=== PATIENT | female | born 1975 | race Caucasian/White ===

== ENCOUNTER 2020-09-02 09:46 | Emergency (ER) | payer OTHER, SELFPAY ==
--- NOTE | 2020-09-02 | XR_ITS ---
EXAMINATION: XR WRIST, RIGHT CLINICAL INFORMATION: Atraumatic right wrist pain. COMPARISON: None TECHNIQUE: PA, lateral, and oblique views of the right wrist. FINDINGS: The bones and soft tissues are normal. No fracture. Alignment is anatomic with normal joint spaces. No erosions or abnormal soft tissue calcifications. IMPRESSION: Unremarkable right wrist.
[2020-09-02 10:25] VITALS: BP 141/68; PULSE 63; RESP 16; O2SAT 99; BMI 22.8
--- NOTE | 2020-09-02 10:38 | ED.EXTPRO ---
HPI - Extremity Problem General Chief complaint: Extremity Injury, Upper Stated complaint: hand pain,no inj Time Seen by Provider: 09/02/20 10:38 Source: patient Mode of arrival: ambulatory Limitations: no limitations History of Present Illness HPI Narrative: right wist pain x several days. Worsened at nighttime. Pain radiates to right 4th and 5th finger with intermittent numbness/tingling. No injury or trauma. Uses right hand to care for son at home. MD Complaint: extremity pain Onset (ago): day(s) Pain Consistency: constant Location: right Quality: burning and aching Radiation: distal (4th and 5th finger ) Relieving factors: nothing Exacerbating factors: nothing Associated symptoms: denies other symptoms Related Data Previous Rx's Medication Instructions Recorded hydrocodone-acetaminophen 1 tab PO Q8H PRN #10 tab 09/02/20 Allergies Allergy/AdvReac Type Severity Reaction Status Date / Time No Known Allergies Allergy Verified 09/02/20 10:29 Review of Systems Review of Systems: Yes all other systems are reviewed and are negative Constitutional: Constitutional: Denies chills, Denies fever(s) and Denies weakness Eyes: Eyes: Reports no additional eye complaints and Denies change in vision ENT: Reports system reviewed and no additional complaints, except as documented, Denies nasal congestion and Denies nasal discharge Cardiovascular: Cardiovascular: Reports no additional cardiovascular complaints, Denies chest pain, Denies leg edema and Denies dyspnea Respiratory: Respiratory: Reports no additional respiratory complaints, Denies cough and Denies dyspnea Gastrointestinal: Gastrointestinal: Reports no additional gastrointestinal complaints, Denies abdominal pain, Denies fecal incontinence, Denies diarrhea, Denies nausea and Denies vomiting Musculoskeletal: Musculoskeletal: Reports no additional musculoskeletal complaints, Reports arthralgias, Denies joint swelling, Denies muscle weakness, Denies numbness, Reports radiating pain into limb and Reports tingling Integumentary/Breasts: Skin/Breast: Reports system reviewed and no additional complaints, except as docu and Denies rash Neurologic: Denies Abnormal speech present, Denies numbness, Reports tingling and Denies weakness PMFSH Past Medical History Attestation statement: The following information was validated with the patient. Source: obtained from family Medical History Carpal tunnel syndrome Social History Social History Alcohol intake: never Smoking Status: Current every day smoker Use of substances other than those prescribed or required for medical reasons: No Advance Directives: No Advance Directives Information Provided: Yes Physical Exam Vital Signs and I&O and Narrative: Vital Signs and I&O: Vital Signs Pulse 63 09/02/20 10:25 Resp 16 09/02/20 10:25 BP 141/68 H 09/02/20 10:25 Pulse Ox 98 09/02/20 12:15 Intake & Output 09/01/20 09/02/20 09/02/20 18:59 06:59 18:59 Weight 64.41 kg Body Mass Index 22.8 Const: General: cooperative, healthy appearing, comfortable, no acute distress and well developed Orientation/consciousness: patient oriented x3 HENMT: Head: Yes normal to inspection Ears: hearing grossly normal bilaterally General nose exam: Normal external nose present Face and sinus: Yes normal facial exam Mouth: Normal oral and palatal mucosa present Throat: Yes posterior oropharynx normal Eyes: General: appearance normal, both eyes and all related structures Pupils: Equal, round and reactive pupils present Neck: Neck: Yes normal visual inspection Chest: Chest palpation & inspection: normal inspection of the chest Resp: Effort & Inspection: normal respiratory effort Auscultation: clear to auscultation bilaterally Cardio: Palpation: normal PMI Rate: regular rate Rhythm: regular rhythm Peripheral pulses: Peripheral pulses 2+ throughout, radial pulses present and ulnar radial pulses present GI: Inspection: Yes normal to inspection Auscultation: normal bowel sounds Back/Spine/Pelvis: Thoracic/Lumbar Spine: thoracic and lumbar spine normal to inspection Skin: General skin exam: no rashes or lesions noted Neuro: General: patient oriented x3 Cranial nerves: Yes CN's II-XII intact bilaterally and Yes Equal, round and reactive pupils present Cognition (Neuro): normal cognition Speech: No Abnormal speech present Gait exam (Neuro): Normal gait present Motor exam (neuro): 5/5 motor strength present throughout and Motor abnormalities not present Sensory Exam: Normal double simultaneous stimulation for sensation Extrem: General: Yes normal to inspection Right upper extremity: normal to inspection, full ROM (with pain but able ), normal capillary refill and wrist (pain with flexion and extension, +phalens signs. NV intact distally) Details: Tinel's negative; no edema MDM - Extremity (Nontraumatic) MDM Narrative Medical decision making narrative: Exam c/w with carpal tunnel vs tendonitis. Worsened at nighttime with +phalens so more likely carpal tunnel. X-ray negative for bony abnormality. Reviewed worrisome signs/symptoms with patient and when to return to ED. Comfortable with discharge home. Reviewed masspat. Imaging Data wrist x-ray: Attestation: I personally reviewed and interpreted this imaging study as follows: My impression: negative for bony abnormality Radiologist's impression: EXAMINATION: XR WRIST, RIGHT CLINICAL INFORMATION: Atraumatic right wrist pain. COMPARISON: None TECHNIQUE: PA, lateral, and oblique views of the right wrist. FINDINGS: The bones and soft tissues are normal. No fracture. Alignment is anatomic with normal joint spaces. No erosions or abnormal soft tissue calcifications. IMPRESSION: Unremarkable right wrist. Discharge Plan Discharge Clinical Impression: Acute carpal tunnel syndrome of right wrist Patient Disposition: Home, Self-Care Instructions: Arthralgia (ED) Additional Instructions: Carpal tunnel syndrome Wear splint at all times even nighttime Ice, elevation Continue anti-inflammatory medications at home such as ibuprofen or aleve Prescriptions: New hydrocodone-acetaminophen 5-300 mg tablet 1 tab PO Q8H PRN (Reason: acute pain) Qty: 10 RF: 0 Referrals: Lupsi Mantilla MD [Primary Care Provider] - 2 days Gennaro Hines MD [Physician] - 3 days (if no better) Interventions: ED Discharge Assessment Last Done: 09/02/20 12:22 Discharge Date/Time: 09/02/20 12:23
[2020-09-02] MEDS: Ketorolac Tromethamine 60 MG/2 ML VIAL IM (10:55)
[2020-09-02 12:15] VITALS: O2SAT 98
== END 2020-09-02 12:23 | disposition home or self-care (01) ==
PROVIDERS: Emergency Provider Internal Medicine; PCP Internal Medicine
DX: G56.01 Carpal tunnel syndrome, right upper limb (principal); F17.200 Nicotine dependence, unspecified, uncomplicated; Z71.6 Tobacco abuse counseling
CPT/HCPCS: 73110; 96372; 99284; J1885

== ENCOUNTER 2021-12-22 10:23 | Outpatient (REF) | payer OTHER, SELFPAY ==
[2021-12-22 10:56] LABS: Binax Internal Control QC Valid; Binax Now Covid-19 Ag Negative (Negative)
== END 2021-12-22 10:24 | disposition home or self-care (01) ==
LOC: HO.LAB 10:23
PROVIDERS: Visit Provider Internal Medicine
DX: Z20.822 Contact with and (suspected) exposure to COVID-19 (principal)
CPT/HCPCS: C9803

== ENCOUNTER 2022-09-10 08:20 | Emergency (ER) | payer OTHER, SELFPAY ==
--- NOTE | ~2022-09-10 | CT_ITS ---
EXAMINATION: CT ABDOMEN AND PELVIS WITH CONTRAST CLINICAL INFORMATION: Rectal bleeding. Colitis. COMPARISON: None TECHNIQUE: Multidetector volumetric images were obtained from the superior aspect of the liver through the pubic symphysis following administration 85 mL of Omnipaque 350 intravenous contrast. Sagittal and coronal reformatted images were obtained on the technologist's workstation. Oral contrast: No This CT examination was performed using dose optimization techniques as appropriate, variously including the following: *Automated exposure control *Adjustment of mA and/or kV according to patient size (this includes techniques or standardized protocols for targeted exams where dose is matched to indication/reason for exam; i.e. extremities or head) *Use of iterative reconstruction technique DLP: 408 mGy-cm FINDINGS: LUNG BASES: The visualized lung bases are unremarkable. LIVER, GALLBLADDER, AND BILIARY TREE: The liver is normal in size, shape, and attenuation. No focal hepatic lesion or biliary ductal dilatation is present. The gallbladder is unremarkable with no evidence of radiopaque gallstones, gallbladder wall thickening, or obvious pericholecystic inflammatory changes. PANCREAS: Unremarkable. SPLEEN: Unremarkable. ADRENAL GLANDS: Unremarkable. KIDNEYS AND URETERS: The kidneys are normal in size, shape, and attenuation. No hydronephrosis, hydroureter, or calculi seen. No perinephric stranding. BLADDER: Unremarkable. GASTROINTESTINAL TRACT: Large stool burden throughout the colon without evidence of bowel obstruction or right or left lower quadrant inflammatory change. Polyps or masses could be missed. There does appear to be slight thickening of the ascending colon. Colitis here not excluded. Follow-up study with bowel prep, oral contrast or rectal contrast would be helpful. The sigmoid is unremarkable but somewhat decompressed. The rectum is decompressed as well. I do not see evidence of pericolonic inflammation. No free air. ABDOMINAL WALL: No significant hernia is appreciated. LYMPH NODES: Normal. VASCULAR: Unremarkable. PELVIC VISCERA: Unremarkable. OSSEOUS STRUCTURES: Degenerative change T11-T12 noted. CT/CT abdomen pelvis w IV con IMPRESSION: Stool-filled colon with areas of bowel wall thickening in the ascending colon noted. Fleischner guidelines were followed.
[2022-09-10 08:24] VITALS: BP 138/96; PULSE 75; RESP 18; TEMP 36.4; O2SAT 98
[2022-09-10 08:35] VITALS: BP 131/75; PULSE 63; RESP 18; TEMP 36.8; O2SAT 97; BMI 22.6
[2022-09-10 09:38] LABS: MANUAL DIFF FLAG NO
[2022-09-10 09:44] LABS: Basophils Absolute Auto 0.1 X10*3/uL (0.0-0.2); Basophils Percent Auto 1.1 % (0-2); Eosinophils Absolute Auto 0.1 X10*3/uL (0.0-0.4); Eosinophils Percent Auto 2.1 % (0-4); Hematocrit 36.6 % (37.0-47.0); Hemoglobin 12.4 g/dl (12.0-16.0); Imm Gran Abs Auto 0.01 X10*3/uL (0.00-0.03); Imm Gran Pct Auto 0.2 % (0.0-0.4); Lymphocytes Absolute Auto 1.7 X10*3/uL (1.2-4.9); Lymphocytes Percent Auto 32.9 % (20-40); Mean Corpuscular HGB Conc 33.9 g/dl (31.0-35.0); Mean Corpuscular Hemoglobin 31.5 pg (27.0-33.0); Mean Corpuscular Volume 92.9 fL (80.0-98.0); Mean Platelet Volume 9.1 fL (9.4-12.3); Monocytes Absolute Auto 0.4 X10*3/uL (0.1-1.2); Monocytes Percent Auto 7.4 % (2-11); Neutrophils Percent Auto 56.3 % (45-73); Platelet Count 207 X10*3/uL (160-400); Red Blood Count 3.94 X10*6/uL (4.20-5.50); Red Cell Distribution Width 13.6 % (11.0-16.0); White Blood Count 5.3 X10*3/uL (4.8-10.8)
--- NOTE | 2022-09-10 09:47 | ED_ITS ---
HPI - General Adult General Chief complaint: General Medical Stated complaint: blood in stool Time Seen by Provider: 09/10/22 08:30 Source: patient Mode of arrival: ambulatory Limitations: no limitations History of Present Illness HPI narrative: Patient presents emergency department for evaluation bloody stool. She states that this is been ongoing for many years. States that over the past year and has occurred about every 3 months, typically happening when she has bouts of constipation. However, she states she has had increased frequency over the past 8 days. With every bowel movement she is noting bright red blood with clots to this stool and within the toilet bowl. she states that the first 3 days of this bout she had dark tarry stools has not had any since then. She does endorse a history of hemorrhoids, that she is manually reinserting into her rectum. Denies any prior evaluation in the past in regards to this. Denies fevers, chills, night sweats, recent unintentional weight loss, chest pain, shortness of breath, difficulty breathing, nausea, vomiting, abdominal pain, hematuria, fami ly history of colon cancer, no prior colonoscopy. Related Data Previous Rx's Medication Instructions Recorded hydrocodone 5 mg-acetaminophen 300 1 tab PO Q8H PRN acute pain #10 09/02/20 mg tablet tabs ciprofloxacin HCl 500 mg tablet 500 mg PO Q12H 7 days #14 tabs 09/10/22 metronidazole 500 mg tablet 500 mg PO Q8H 7 days #21 tabs 09/10/22 Allergies Allergy/AdvReac Type Severity Reaction Status Date / Time No Known Allergies Allergy Verified 09/02/20 10:29 Review of Systems Review of Systems: Constitutional : No Weight loss, No Fever, No Chills ENT/Mouth :? No sore throat, No Rhinorrhea Eyes: No Swelling, No Redness Cardiovascular : No Chest Pain, No SOB, No Edema Respiratory : No Cough, No Sputum, No Wheezing Gastrointestinal : no Nausea, no Vomiting, no Diarrhea, no abdominal pain, Positive Hematochezia, No Melena Genitourinary : No Dysuria, No Urinary Frequency, No Hematuria, No Urgency? Musculoskeletal : No joint pain, No Myalgias, No Joint Swelling Skin : No Skin Lesions, No rash Neuro : No Weakness, No Numbness, No Dizziness, No Headache Psych : No Anxiety/Panic, No Depression Heme/Lymph: No Bruising, No Lymphadenopathy Endocrine : No Polyuria, No Polydipsia Yes all other systems are reviewed and are negative [facility] Past Medical History Attestation statement: The following information was validated with the patient. Source: old records reviewed Medical History Carpal tunnel syndrome Social History Social History Alcohol intake: never Advance Directives: No Advance Directives Information Provided: No Physical Exam ED Vital Signs: Vital Signs - 24 hr 09/10/22 08:24 09/10/22 08:35 09/10/22 10:27 Temperature 97.5 F 98.3 F 98.3 F Pulse Rate 75 63 49 L Respiratory Rate 18 18 14 Blood Pressure 138/96 H 131/75 144/78 H Pulse Oximetry 98 97 98 Oxygen Delivery Method Room Air Room Air Room Air BMI result Body Mass Index 22.6 Vital signs have been reviewed as normal and appeared to be correct. Blood pressure normal.? Heart rate normal.? Respiration rate normal. Temperature n ormal.? Oxygen saturation normal. Appearance: Alert.?Oriented to person, place and time. No acute distress.?Normal affect. Eyes: Pupils equal, round and reactive to light.? ENT: Pharynx normal.?? Neck: Normal inspection.? Neck supple.?? CVS: Heart sounds normal. Normal heart rate and rhythm.? Pulses normal.?? Respiratory: No respiratory distress.? Lung sounds clear to auscultation bilaterally?? Abdomen: Soft and non-tender. Normoactive bowel sounds. rectal: performed with service line layer, ED RN Kaylee, no evidence of external hemorrhoids upon examination, no active rectal bleeding, no fissures. Upon dig ital rectal examination no palpable mass, noted small amounts of maroon-colored stool? Skin: Skin warm and dry.? Normal skin color.? Extremities: No lower extremity edema.? ? Neuro: Moves all extremities spontaneously. Sensation intact bilaterally. No focal neuro deficits. Ambulates with normal steady gait. Course Course Course Narrative: patient is a 47-year-old female with no significant past medical history presenting to emergency department for evaluation of bright red blood per rectum occurring only with bowel movements and straining with constipation. She is overall well-appearing. Vital signs are stable. No tachycardia, afebrile. No additional constitutional symptoms. Rectal examination is overall unremarkable, no visualized external hemorrhoids or fissures. Will obtain CBC, CMP, CT of the abdomen and pelvis, possible etiologies for hematochezia including internal hemorrhoid which seems most likely given her history, colitis, diverticulitis. disposition pending results Reevaluation(s) Reevaluation #1: CBC reveals no Leukocytosis, hemoglobin 12.4 hematocrit 36.6, platelets normal. CMP is unremarkable. CT reveals stool-filled colon with areas of bowel wall thickening in the ascending colon, DVT cyst with colitis. I discussed these findings with patient. Advised outpatient follow-up with Gastroenterology, will trial a 1 week course of antibiotics; metronidazole and ciprofloxacin. Reviewed worrisome signs symptoms to return back to emergency department for. Discussed bland diet with slow progression as symptoms improve. Patient verbalizes understanding, was discharged home in stable condition. Medical Decision Making Medical Records Medical records reviewed: Yes I reviewed the patient's medical records. Lab Data Lab results reviewed: Yes I reviewed the patient's lab results. Result diagrams: 09/10/22 09:32 09/10/22 09:32 Labs: Lab Results 09/10/22 09/10/22 09/10/22 Range/Units 09:32 09:32 11:03 WBC 5.3 (4.8-10.8) X10*3/uL RBC 3.94 L (4.20-5.50) X10*6/uL Hgb 12.4 (12.0-16.0) g/dl Hct 36.6 L (37.0-47.0) % MCV 92.9 (80.0-98.0) fL MCH 31.5 (27.0-33.0) pg MCHC 33.9 (31.0-35.0) g/dl RDW 13.6 (11.0-16.0) % Plt Count 207 (160-400) X10*3/uL MPV 9.1 L (9.4-12.3) fL Immature Gran % (Auto) 0.2 (0.0-0.4) % Neut % (Auto) 56.3 (45-73) % Lymph % (Auto) 32.9 (20-40) % [place] % (Auto) 7.4 (2-11) % Eos % (Auto) 2.1 (0-4) % Baso % (Auto) 1.1 (0-2) % Lymph # (Auto) 1.7 (1.2-4.9) X10*3/uL [place] # (Auto) 0.4 (0.1-1.2) X10*3/uL Eos # (Auto) 0.1 (0.0-0.4) X10*3/uL Baso # (Auto) 0.1 (0.0-0.2) X10*3/uL Abs Immat Gran (auto) 0.01 (0.00-0.03) X10*3/uL Absolute Neuts (auto) 3.0 (2.0-8.3) x10*3/uL Absolute Nucleated RBC 0.000 (0.0-0.012) X10*3/uL Nucleated RBC % (auto) 0.0 (0.0-0.2) /100WBC Sodium 142 (135-145) mmol/L Potassium 4.0 (3.3-5.1) mmol/L Chloride 106 (96-108) mmol/L Carbon Dioxide 27 (22-29) mmol/L Anion Gap 13 (12-20) BUN 10 (9-16) mg/dL Creatinine 0.72 (0.5-1.4) mg/dL Estim Creat Clear Calc 91.4 Estimated GFR > 60 Random Glucose 63 (60-115) mg/dL Calcium 9.3 (8.4-10.2) mg/dL Total Bilirubin < 0.2 (0.0-1.0) mg/dL AST 13 (5-31) U/L ALT 10 (0-31) U/L Alkaline Phosphatase 49 (39-117) U/L Total Protein 6.8 (6.5-8.0) g/dL Albumin 4.4 (3.5-5.0) g/dL Urine Color Yellow Urine Appearance Clear Urine pH 7.5 (5.0-9.0) Ur Specific [place] 1.010 (1.005-1.025) Urine Protein Negative (Neg-Trace) mg/dL Urine Glucose (UA) Negative (Negative) mg/dL Urine Ketones Negative (Negative) mg/dL Urine Blood Negative (Negative) Urine Nitrite Negative (Negative) Ur Leukocyte Esterase Negative (Negative) Urine Test (NEGATIVE) Stool Occult Blood (NEGATIVE) 09/10/22 09/10/22 Range/Units 11:03 11:03 WBC (4.8-10.8) X10*3/uL RBC (4.20-5.50) X10*6/uL Hgb (12.0-16.0) g/dl Hct (37.0-47.0) % MCV (80.0-98.0) fL MCH (27.0-33.0) pg MCHC (31.0-35.0) g/dl RDW (11.0-16.0) % Plt Count (160-400) X10*3/uL MPV (9.4-12.3) fL Immature Gran % (Auto) (0.0-0.4) % Neut % (Auto) (45-73) % Lymph % (Auto) (20-40) % [place] % (Auto) (2-11) % Eos % (Auto) (0-4) % Baso % (Auto) (0-2) % Lymph # (Auto) (1.2-4.9) X10*3/uL [place] # (Auto) (0.1-1.2) X10*3/uL Eos # (Auto) (0.0-0.4) X10*3/uL Baso # (Auto) (0.0-0.2) X10*3/uL Abs Immat Gran (auto) (0.00-0.03) X10*3/uL Absolute Neuts (auto) (2.0-8.3) x10*3/uL Absolute Nucleated RBC (0.0-0.012) X10*3/uL Nucleated RBC % (auto) (0.0-0.2) /100WBC Sodium (135-145) mmol/L Potassium (3.3-5.1) mmol/L Chloride (96-108) mmol/L Carbon Dioxide (22-29) mmol/L Anion Gap (12-20) BUN (9-16) mg/dL Creatinine (0.5-1.4) mg/dL Estim Creat Clear Calc Estimated GFR Random Glucose (60-115) mg/dL Calcium (8.4-10.2) mg/dL Total Bilirubin (0.0-1.0) mg/dL AST (5-31) U/L ALT (0-31) U/L Alkaline Phosphatase (39-117) U/L Total Protein (6.5-8.0) g/dL Albumin (3.5-5.0) g/dL Urine Color Urine Appearance Urine pH (5.0-9.0) Ur Specific [place] (1.005-1.025) Urine Protein (Neg-Trace) mg/dL Urine Glucose (UA) (Negative) mg/dL Urine Ketones (Negative) mg/dL Urine Blood (Negative) Urine Nitrite (Negative) Ur Leukocyte Esterase (Negative) Urine Test NEGATIVE (NEGATIVE) Stool Occult Blood POSITIVE (NEGATIVE) Imaging Data CT scan - abdomen: Radiologist's impression: CT/CT abdomen pelvis w IV con IMPRESSION: Stool-filled colon with areas of bowel wall thickening in the ascending colon noted.? ? Fleischner guidelines were followed. Discharge Plan Discharge Clinical Impression: Hematochezia, Colitis Patient Disposition: Home, Self-Care Instructions: Rectal Bleeding (ED), Colitis (ED) Additional Instructions: CT scan shows areas of bowel wall thickening which can occur with colitis, inflammation of the bowel. Introduce a bland diet including crackers, bananas, rice, soup, toast, and boiled vegetables. This may progress to plain baked or boiled chicken or turkey. Avoid dairy products or foods high in fat or grease. You have been given prescriptions for oral antibiotics, metronidazole to take 3 times daily, and ciprofloxacin to take twice daily for 1 week. You should contact the GI office to arrange for follow-up. Their phone number has been provided to you. Follow-up with your primary care provider within 3 days. Return to the emergency department with any new or worsening symptoms or concerns. Prescriptions: New metronidazole 500 mg tablet 500 mg PO Q8H 7 Days Qty: 21 0RF ciprofloxacin HCl 500 mg tablet 500 mg PO Q12H 7 Days Qty: 14 0RF No Action hydrocodone-acetaminophen 5-300 mg tablet 1 tab PO Q8H PRN (Reason: acute pain) Qty: 10 0RF Referrals: Tierney Nation MD [Physician] - Interventions: ED Discharge Assessment Last Done: 09/10/22 14:09 Discharge Date/Time: 09/10/22 14:09
[2022-09-10 10:09] LABS: Alanine Aminotransferase 10 U/L (0-31); Albumin Level 4.4 g/dL (3.5-5.0); Alkaline Phosphatase 49 U/L (39-117); Anion Gap 13 (12-20); Aspartate Amino Transferase 13 U/L (5-31); Bilirubin Total < 0.2 mg/dL (0.0-1.0); Blood Urea Nitrogen 10 mg/dL (9-16); Calcium 9.3 mg/dL (8.4-10.2); Carbon Dioxide 27 mmol/L (22-29); Chloride 106 mmol/L (96-108); Creatinine Clr Calc Pharmacy 91.4; Estimated Glomerular Filt Rate > 60; Glucose Random 63 mg/dL (60-115); Sodium 142 mmol/L (135-145); Total Protein 6.8 g/dL (6.5-8.0)
[2022-09-10 10:27] VITALS: BP 144/78; PULSE 49; RESP 14; TEMP 36.8; O2SAT 98
[2022-09-10 11:14] LABS: Appearance Urine Clear; Color Urine Yellow; Glucose Urine UA Negative (Negative); Leukocyte Esterase Urine Negative (Negative); Nitrite Urine Negative (Negative); PH 7.5 (5.0-9.0); UPreg QC Valid YES; Urine Blood Negative (Negative); Urine Ketones Negative (Negative); Urine Protein Negative (Neg-Trace)
[2022-09-10 11:15] LABS: Urine Pregnancy NEGATIVE (NEGATIVE)
[2022-09-10] MEDS: iohexoL 350 MG/ML 100 ML INFUS..BTL 85 ML IV (12:22)
[2022-09-10 12:44] LABS: OBS Int Ctl Valid YES; OBS1 POSITIVE (NEGATIVE)
== END 2022-09-10 14:09 | disposition home or self-care (01) ==
PROVIDERS: Nurse Practitioner Family; Emergency Provider Student in an Organized Health Care Education/Training Program
DX: K92.1 Melena (principal); K52.9 Noninfective gastroenteritis and colitis, unspecified
CPT/HCPCS: 36415; 74177; 80053; 81003; 81025; 82272; 85025; 99283; 99284; Q9967

== ENCOUNTER 2023-09-14 09:32 | Emergency (ER) | payer OTHER, SELFPAY ==
--- NOTE | ~2023-09-14 | CT_ITS ---
CT SOFT TISSUE NECK WITH CONTRAST CLINICAL INFORMATION: Draining surgical site, evaluate for deep abscess. COMPARISON: None available. TECHNIQUE: Following the intravenous administration of 100 mL of Omnipaque 350 intravenous contrast, helical imaging was performed in the axial plane with generation of coronal and sagittal reformatted images. This CT examination was performed using dose optimization techniques as appropriate, variously including the following: *Automated exposure control *Adjustment of mA and/or kV according to patient size (this includes techniques or standardized protocols for targeted exams where dose is matched to indication/reason for exam; i.e. extremities or head) *Use of iterative reconstruction technique FINDINGS: There are postoperative changes within the right submandibular region and the right subarticular gland has been resected or biopsied and is difficult to determine given soft tissue density in the right submandibular region which may reflect postoperative hematoma or phlegmon. Small gas fluid collection extending from the right submandibular space to the overlying skin surface. Abscess not excluded. There is no infection within the deep cervical soft tissues. Orbital soft tissues, parotid glands, and the left submandibular gland are unremarkable. The thyroid gland is enlarged and diffusely heterogeneous which should be correlated with thyroid function tests and ultrasound. No retropharyngeal collections. Lingual tonsillar hypertrophy partially effaces the vallecula bilaterally. Laryngeal structures are limitedly assessed, closely opposed in phonation. Punctate focus of gas within Eden's duct on the right side. Imaged lungs are clear. Imaged upper mediastinum is unremarkable. There is multilevel cervical spondylosis. The paranasal sinuses are clear. Moderate bilateral mastoid effusions. CT/CT soft tissue neck w IV con IMPRESSION: - There are postoperative changes within the right submandibular region and the right subarticular gland has been resected or biopsied which is difficult to determine given soft tissue density in the right submandibular region which may reflect postoperative hematoma or phlegmon. Small gas fluid collection extending from the right submandibular space to the overlying skin surface. Abscess not excluded. There is no infection within the deep cervical soft tissues. - The thyroid gland is enlarged and diffusely heterogeneous which should be correlated with thyroid function tests and ultrasound.
[2023-09-14 09:43] VITALS: BP 162/89; PULSE 75; RESP 16; TEMP 36.7; O2SAT 98; BMI 23.5
[2023-09-14 10:02] LABS: MANUAL DIFF FLAG NO
[2023-09-14 10:09] LABS: Basophils Percent Auto 0.7 % (0-2); Eosinophils Absolute Auto 0.1 X10*3/uL (0.0-0.4); Eosinophils Percent Auto 1.5 % (0-4); Hematocrit 36.5 % (37.0-47.0); Hemoglobin 12.2 g/dl (12.0-16.0); Imm Gran Abs Auto 0.02 X10*3/uL (0.00-0.03); Imm Gran Pct Auto 0.3 % (0.0-0.4); Lymphocytes Absolute Auto 1.6 X10*3/uL (1.2-4.9); Lymphocytes Percent Auto 27.5 % (20-40); Mean Corpuscular HGB Conc 33.4 g/dl (31.0-35.0); Mean Corpuscular Hemoglobin 31.8 pg (27.0-33.0); Mean Corpuscular Volume 95.1 fL (80.0-98.0); Mean Platelet Volume 8.8 fL (9.4-12.3); Monocytes Absolute Auto 0.5 X10*3/uL (0.1-1.2); Monocytes Percent Auto 8.1 % (2-11); Neutrophils Absolute Auto 3.7 x10*3/uL (2.0-8.3); Neutrophils Percent Auto 61.9 % (45-73); Platelet Count 234 X10*3/uL (160-400); Red Blood Count 3.84 X10*6/uL (4.20-5.50); Red Cell Distribution Width 13.2 % (11.0-16.0)
[2023-09-14 10:20] LABS: Alanine Aminotransferase 11 U/L (0-31); Albumin Level 4.2 g/dL (3.5-5.0); Alkaline Phosphatase 55 U/L (39-117); Anion Gap 14 (12-20); Aspartate Amino Transferase 14 U/L (5-31); Bilirubin Total 0.3 mg/dL (0.0-1.0); Blood Urea Nitrogen 10 mg/dL (9-16); Calcium 9.2 mg/dL (8.4-10.2); Carbon Dioxide 23 mmol/L (22-29); Chloride 108 mmol/L (96-108); Creatinine Clr Calc Pharmacy 85.6; Estimated Glomerular Filt Rate > 60; Glucose Random 116 mg/dL (60-115); Sodium 141 mmol/L (135-145); Total Protein 7.2 g/dL (6.5-8.0)
--- NOTE | 2023-09-14 10:25 | ED_ITS ---
HPI - General Adult General Chief complaint: Wound/Laceration Stated complaint: Surgery wound opened and leaking Time Seen by Provider: 09/14/23 09:59 Source: patient Mode of arrival: ambulatory Limitations: no limitations History of Present Illness HPI narrative: 48 y/o female with recent salivary gland removal at [facility] almost 2 weeks ago who presents to the ER for evaluation of her surgical wound opening up with drainage of pus that happened this morning. She states she saw them for a post-op visit on 09/10, had the steri strips removed. She states she had a lot of swelling and pain and was told it was normal. She reports the swelling is overall improved but today she felt a pop and her wound opened up with purulent drainage coming from it. No fevers. She has not been on any antibiotics since the surgery. She denies any sensation of throat swelling, difficultly swallowing or speaking. No oral swelling just some pain on the right side of her tongue. She called her ENT office this morning but has not heard back yet. MD complaint: opened surgical wound w/ pus Onset (ago): hour(s) Location: neck Radiation: proximal and distal Severity: moderate Quality: aching Pain Consistency: constant Relieving factors: rest Exacerbating factors: movement Associated symptoms: denies other symptoms Treatments prior to arrival: none Related Data Previous Rx's Medication Instructions Recorded hydrocodone 5 mg-acetaminophen 300 1 tab PO Q8H PRN acute pain #10 09/02/20 mg tablet tabs ciprofloxacin HCl 500 mg tablet 500 mg PO Q12H 7 days #14 tabs 09/10/22 metronidazole 500 mg tablet 500 mg PO Q8H 7 days #21 tabs 09/10/22 cephalexin 500 mg capsule 500 mg PO Q6H 10 days #40 caps 09/14/23 doxycycline hyclate 100 mg tablet 100 mg PO BID #20 tabs 09/14/23 ibuprofen 600 mg tablet 600 mg PO Q8H PRN pain #20 tabs 09/14/23 lidocaine HCl 4 % (40 mg/mL) 15 ml mucous membrane TID PRN pain 09/14/23 mucosal solution #50 mL Allergies Allergy/AdvReac Type Severity Reaction Status Date / Time No Known Allergies Allergy Verified 09/02/20 10:29 Review of Systems 2 Review of Systems: Yes all other systems are reviewed and are negative PMFSH Past Medical History Medical History Carpal tunnel syndrome Social History Social History Alcohol intake: never Advance Directives: No Advance Directives Information Provided: No Physical Exam ED Vital Signs: Vital Signs - 24 hr 09/14/23 09:43 Temperature 98.1 F Pulse Rate 75 Respiratory Rate 16 Blood Pressure 162/89 H Pulse Oximetry 98 Oxygen Delivery Method Room Air BMI result Body Mass Index 23.5 Appearance: Alert. Oriented X3. No acute distress. Nontoxic appearing Head: normocephalic, atraumatic. Eyes: Pupils equal, round and reactive to light. ENT: Pharynx normal. No tonsillar swelling or exudate. Tongue with small erythematous tender lesions on the right lateral aspect. airway patent. normal voice. Neck: right submandibular area with an open 0.5cm area w/ yellow purulent drainage, mild erythema and induration extending to the ear and a few cm centrally. no midline neck swelling. normal ROM of the neck. CVS: Normal heart rate and rhythm. Pulses normal. Respiratory: No respiratory distress. Breath sounds normal. Skin: Skin warm and dry. Normal skin color. Normal skin turgor. No rashes. Extremities: No lower extremity edema. No joint swelling. Neuro/psych: Oriented X 3. No motor deficit. No sensory deficit. CN II-XII intact. Normal speech and cognition. Medications Administered Discontinued Medications Generic Name Dose Route Start Last Admin Trade Name Freq PRN Reason Stop Dose Admin Iohexol 100 ml 09/14/23 10:43 09/14/23 10:43 Iohexol 350 Mg/Ml 100 Ml Infus..Btl IV 09/14/23 10:44 60 ml ONCE ONE Administration Ketorolac Tromethamine 30 mg 09/14/23 10:46 09/14/23 10:48 Ketorolac Tromethamine 30 Mg/Ml Vial IVPUSH 09/14/23 10:47 30 mg ONCE ONE Administration Medical Decision Making Medical Decision Making [facility] Narrative: 48 yo female presenting 2 weeks post op with wound dehiscence and drainage of purulent material. concern for abscess. she has normal ROM and is nontoxic appearing. Labs show no leukocytosis. CT scan showing possible abscess w/ some superficial air, likely due to the fact that the wound is now open, less likely a necrotizing infection. CT scan reviewed w/ Dr. Euceda Comfortable w/ discharge home with doxycycline and keflex She will f/u with her ENT provider BREEZY Return precautions discussed. stable for d/c Differential Diagnosis Differential Diagnoses: The differential diagnosis associated with the presentation includes post-op abscess, cellulitis, phlegmon, deep tissue infection, no evidence of sepsis Lab Data MDM Lab Attestation statement: I reviewed the patient's lab results. no leukocytosis 09/14/23 09:59 09/14/23 09:59 Labs: Lab Results 09/14/23 Range/Units 09:59 WBC 6.0 (4.8-10.8) X10*3/uL RBC 3.84 L (4.20-5.50) X10*6/uL Hgb 12.2 (12.0-16.0) g/dl Hct 36.5 L (37.0-47.0) % MCV 95.1 (80.0-98.0) fL MCH 31.8 (27.0-33.0) pg MCHC 33.4 (31.0-35.0) g/dl RDW 13.2 (11.0-16.0) % Plt Count 234 (160-400) X10*3/uL MPV 8.8 L (9.4-12.3) fL Immature Gran % (Auto) 0.3 (0.0-0.4) % Neut % (Auto) 61.9 (45-73) % Lymph % (Auto) 27.5 (20-40) % [place] % (Auto) 8.1 (2-11) % Eos % (Auto) 1.5 (0-4) % Baso % (Auto) 0.7 (0-2) % Lymph # (Auto) 1.6 (1.2-4.9) X10*3/uL [place] # (Auto) 0.5 (0.1-1.2) X10*3/uL Eos # (Auto) 0.1 (0.0-0.4) X10*3/uL Baso # (Auto) 0.0 (0.0-0.2) X10*3/uL Abs Immat Gran (auto) 0.02 (0.00-0.03) X10*3/uL Absolute Neuts (auto) 3.7 (2.0-8.3) x10*3/uL Absolute Nucleated RBC 0.000 (0.0-0.012) X10*3/uL Nucleated RBC % (auto) 0.0 (0.0-0.2) /100WBC Sodium 141 (135-145) mmol/L Potassium 4.0 (3.3-5.1) mmol/L Chloride 108 (96-108) mmol/L Carbon Dioxide 23 (22-29) mmol/L Anion Gap 14 (12-20) BUN 10 (9-16) mg/dL Creatinine 0.76 (0.5-1.4) mg/dL Estim Creat Clear Calc 85.6 Estimated GFR > 60 Random Glucose 116 H (60-115) mg/dL Calcium 9.2 (8.4-10.2) mg/dL Total Bilirubin 0.3 (0.0-1.0) mg/dL AST 14 (5-31) U/L ALT 11 (0-31) U/L Alkaline Phosphatase 55 (39-117) U/L Total Protein 7.2 (6.5-8.0) g/dL Albumin 4.2 (3.5-5.0) g/dL Independent Interpretation I performed an independent interpretation of an: CT Scan Interpretation: no large well defined fluid collection, agree w/ radiology read Radiology Impression Discussion of test interpretation with radiology: I have reviewed the radiologist's reading. Radiologist Impression: CT/CT soft tissue neck w IV con IMPRESSION: - There are postoperative changes within the right submandibular region and the right subarticular gland has been resected or biopsied which is difficult to determine given soft tissue density in the right submandibular region which may reflect postoperative hematoma or phlegmon. Small gas fluid collection extending from the right submandibular space to the overlying skin surface. Abscess not excluded. There is no infection within the deep cervical soft tissues. - The thyroid gland is enlarged and diffusely heterogeneous which should be correlated with thyroid function tests and ultrasound. Prescription Management I considered prescription management with: Pain Medication and Antibiotic Critical Care Time Critical Care Time Critical Care Time: No Discharge Plan Discharge Clinical Impression: Abscess of neck Patient Disposition: Home, Self-Care Instructions: Abscess (ED) Additional Instructions: Your labs were reassuring. Take the prescribed antibiotics as directed, complete the entire course and do not miss any doses Use warm compresses to the area several times per day Follow up with ENT as soon as possible CT/CT soft tissue neck w IV con IMPRESSION: - There are postoperative changes within the right submandibular region and the right subarticular gland has been resected or biopsied which is difficult to determine given soft tissue density in the right submandibular region which may reflect postoperative hematoma or phlegmon. Small gas fluid collection extending from the right submandibular space to the overlying skin surface. Abscess not excluded. There is no infection within the deep cervical soft tissues. - The thyroid gland is enlarged and diffusely heterogeneous which should be correlated with thyroid function tests and ultrasound. Prescriptions: New doxycycline hyclate 100 mg tablet 100 mg PO BID Qty: 20 0RF cephalexin 500 mg capsule 500 mg PO Q6H 10 Days Qty: 40 0RF ibuprofen 600 mg tablet 600 mg PO Q8H PRN (Reason: pain) Qty: 20 0RF lidocaine HCl 4 % (40 mg/mL) solution 15 ml mucous membrane TID PRN (Reason: pain) Qty: 50 0RF No Action hydrocodone-acetaminophen 5-300 mg tablet 1 tab PO Q8H PRN (Reason: acute pain) Qty: 10 0RF metronidazole 500 mg tablet 500 mg PO Q8H 7 Days Qty: 21 0RF ciprofloxacin HCl 500 mg tablet 500 mg PO Q12H 7 Days Qty: 14 0RF Interventions: ED Discharge Assessment Last Done: 09/14/23 12:22 Discharge Date/Time: 09/14/23 12:24
[2023-09-14] MEDS: iohexoL 350 MG/ML 100 ML INFUS..BTL IV (10:43)
[2023-09-14] MEDS: Ketorolac Tromethamine 30 MG/ML VIAL IVPUSH (10:48)
== END 2023-09-14 12:24 | disposition home or self-care (01) ==
PROVIDERS: Emergency Provider Emergency Medicine Emergency Medical Services; PCP Internal Medicine
DX: L02.11 Cutaneous abscess of neck (principal)
CPT/HCPCS: 36415; 70491; 80053; 85025; 96374; 99283; 99284; J1885; Q9967

== ENCOUNTER 2025-04-04 13:17 | Emergency (ER) | payer OTHER, SELFPAY ==
--- NOTE | ~2025-04-04 | CT_ITS ---
CLINICAL HISTORY: back pain, rectal bleeding CT abdomen and pelvis with IV contrast. COMPARISON: CT abdomen and pelvis dated 09/10/22 at 12:05 EDT FINDINGS: Partially visualized lung bases are unremarkable. No focal hepatic lesion. Normal gallbladder. Normal spleen. Normal pancreas. Normal adrenal glands. Symmetric renal enhancement. No hydronephrosis. Normal appendix. Mild colonic stool burden. No bowel obstruction. No focus of active hemorrhage identified within the bowel. Mild thickening of the mucosa of the distal sigmoid colon/rectum. No mesenteric or retroperitoneal lymphadenopathy. Normal abdominal aorta. Urinary bladder is contracted. No adnexal mass. Prominence of the periuterine vessels on the left measuring up to 8 mm. Mild lower thoracic spondylosis. No acute fracture or suspicious bone lesion. IMPRESSION: 1. Mild thickening of the mucosa of the distal sigmoid colon/rectum can be associated with proctitis. No focus of active hemorrhage identified within the bowel. 2. Multiple prominent periovarian vessels on the left can be associated with pelvic congestion syndrome. This document has been electronically signed by: Nnamdi Avitia MD on 04/04/2025 19:57:38
[2025-04-04 13:30] VITALS: BP 144/84; PULSE 73; RESP 18; TEMP 36.6; O2SAT 98; BMI 23.0
--- NOTE | 2025-04-04 13:30 | ED_ITS ---
HPI - General Adult General Chief complaint: General Medical Stated complaint: Low Back Pain Blood In Urine Time Seen by Provider: 04/04/25 18:08 Source: patient, RN notes reviewed and old records reviewed Mode of arrival: ambulatory Limitations: no limitations History of Present Illness ED Provider: Kelsey TAM narrative: 49-year-old female presents for evaluation of back pain for the last few days. She reports that she just recently went back to work. 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 The patient also reports bright red rectal bleeding for the last 8 days. She reports that she feels constipated and is straining to go to the bathroom. She had a colonoscopy and hemorrhoidectomy about 2 years ago. she denies any abdominal pain. She is not anticoagulated Related Data Previous Rx's ?Medication ?Instructions ?Recorded hydrocodone 5 mg-acetaminophen 300 1 tab PO Q8H PRN acute pain #10 09/02/20 mg tablet tabs ciprofloxacin HCl 500 mg tablet 500 mg PO Q12H 7 days #14 tabs 09/10/22 metronidazole 500 mg tablet 500 mg PO Q8H 7 days #21 tabs 09/10/22 cephalexin 500 mg capsule 500 mg PO Q6H 10 days #40 caps 09/14/23 doxycycline hyclate 100 mg tablet 100 mg PO BID #20 tabs 09/14/23 ibuprofen 600 mg tablet 600 mg PO Q8H PRN pain #20 tabs 09/14/23 lidocaine HCl 4 % (40 mg/mL) 15 ml mucous membrane TID PRN pain 09/14/23 mucosal solution #50 mL cyclobenzaprine 10 mg tablet 10 mg PO TID PRN muscle spasm #20 04/04/25 tabs hydrocortisone acetate 25 mg 25 mg SC DAILY 5 days #12 ea 04/04/25 rectal suppository (Anusol-HC) polyethylene glycol 3350 17 gram 17 g PO DAILY PRN constipation #30 04/04/25 oral powder packet (Miralax) ea Allergies Allergy/AdvReac Type Severity Reaction Status Date / Time No Known Allergies Allergy Verified 04/04/25 13:34 Review of Systems 2 Constitutional: Constitutional: Denies body ache(s), Denies chills and Denies fever(s) Eyes: Eyes: Denies blurry vision ENT: Denies vertigo and Denies dizziness Cardiovascular: Cardiovascular: Denies chest pain and Denies dyspnea Respiratory: Respiratory: Denies cough and Denies dyspnea Gastrointestinal: Gastrointestinal: Denies abdominal pain, Reports hematochezia, Denies nausea and Denies vomiting Musculoskeletal: Musculoskeletal: Reports back pain Integumentary/Breasts: Skin/Breast: Denies rash Neurologic: Denies vertigo and Denies dizziness Psychiatric: Psychiatric: Denies anxiety PMFSH Past Medical History Medical History Carpal tunnel syndrome Social History Social History Alcohol intake: never Physical Exam ED Vital Signs: Vital Signs - 24 hr 04/04/25 13:30 04/04/25 21:08 Temperature 98 F 98 F Pulse Rate 73 68 Respiratory Rate 18 18 Blood Pressure 144/84 H 135/80 Pulse Oximetry 98 98 Oxygen Delivery Method Room Air Room Air BMI result Body Mass Index 23.0 Const General: healthy appearing, comfortable, no acute distress, alert and awake Nutritional Appearance: well nourished Orientation/consciousness: patient oriented x3 HENMT Head: Yes normocephalic and Yes atraumatic Eyes Eyelids: Yes eyelids normal Conjunctivae: conjunctivae normal Sclerae: sclerae normal Corneas: corneas normal Pupils: Equal, round and reactive pupils present EOM: EOMs intact bilaterally Neck Neck: Yes full ROM Resp Effort & Inspection: normal respiratory effort, able to speak in complete sentences and not labored Cardio Rate: regular rate Rhythm: regular rhythm GI Inspection: No distended Palpation (GI): Soft to palpation, not firm, nontender, no guarding and not rigid Rectal Exam - Female: abnormal sphincter tone Rectal exam abnormal sphincter tone - female: increased, No heme positive stool, No External hemorrhoid(s) present, No Internal hemorrhoid(s) present and No Rectal prolapse Back/Spine/Pelvis Other: tenderness to the bilateral lumbar paraspinous region. No vertebral tenderness, step-offs or deformities. Straight leg raise negative bilaterally. Skin General skin exam: elasticity normal Neuro General: patient oriented x3 Cranial nerves: Yes Equal, round and reactive pupils present and Yes Bilaterally intact EOM present Cognition (Neuro): normal cognition Extrem Other: Moving all extremities well without any obvious deformities Course Course Course Narrative: This is a Rapid Medical Exam performed in triage by Adrienne Heck PA-C. Full HPI, ROS and PE to be performed by primary ED provider. 49 yo female with no significant medical history, presenting to the ED c/o 8 days of constant bright red blood in stool. Patient states blood is large volume like period rectally. She states she has had constipation for the past 4 days, and is experiencing back pain when trying to push to have BM. States she takes tylenol/ibuprofen chronically, takes Excedrin daily. Also states she has a frontal headache at this time that feels like her usual headaches. Denies fever, visual changes, nausea, vomiting, blood in urine. PE: abd soft, non-tender, no CVA tenderness Plan: labs, occult blood stool, UA Medications Administered Discontinued Medications Generic Name Dose Route Start Last Admin Trade Name Freq PRN Reason Stop Dose Admin Iohexol 100 ml 04/04/25 19:25 04/04/25 19:25 Iohexol 350 Mg/Ml 100 Ml Infus..Btl IV 04/04/25 19:26 85 ml ONCE ONE Administration Medical Decision Making Medical Decision Making [facility] Narrative: 49-year-old female presents for evaluation back pain. She notes associated rectal bleeding. I have it is possible that her back pain is exacerbated by constipation which is leading to bright red rectal bleeding. However her back pain is more likely musculoskeletal given her history of lifting heavy an bending over. Her pain is reproducible on exam. However given the rash she reports significant heavy bright red blood per rectum plan for a CT scan of the abdomen pelvis to infectious colitis. The patient has no leukocytosis or significant anemia. Her hematocrit is just below normal at 36.7, however this is identical to where it has been dating back to August of 2022. Her chemistries are significant for a carbon dioxide level is slightly increased to 30. Unclear etiology, she may have some degree of sleep otherwise no significant lab abnormalities warranting intervention Differential Diagnosis Differential Diagnoses: The differential diagnosis associated with the presentation includes constipation Internal hemorrhoids External hemorrhoid Diverticulitis Colitis Lower GI bleed Muscle strain Radiculopathy Lab Data [facility] Lab Attestation statement: I reviewed the patient's lab results. as above 04/04/25 14:14 04/04/25 14:14 Labs: Lab Results 04/04/25 04/04/25 04/04/25 Range/Units 14:14 17:21 18:42 WBC 5.8 (4.8-10.8) X10*3/uL RBC 4.01 L (4.20-5.50) X10*6/uL Hgb 12.8 (12.0-16.0) g/dl Hct 36.7 L (37.0-47.0) % MCV 91.5 (80.0-98.0) fL MCH 31.9 (27.0-33.0) pg MCHC 34.9 (31.0-35.0) g/dl RDW 13.3 (11.0-16.0) % Plt Count 198 (160-400) X10*3/uL MPV 8.8 L (9.4-12.3) fL Immature Gran % (Auto) 0.3 (0.0-0.4) % Neut % (Auto) 56.8 (45-73) % Lymph % (Auto) 33.6 (20-40) % [place] % (Auto) 7.2 (2-11) % Eos % (Auto) 1.2 (0-4) % Baso % (Auto) 0.9 (0-2) % Lymph # (Auto) 2.0 (1.2-4.9) X10*3/uL [place] # (Auto) 0.4 (0.1-1.2) X10*3/uL Eos # (Auto) 0.1 (0.0-0.4) X10*3/uL Baso # (Auto) 0.1 (0.0-0.2) X10*3/uL Abs Immat Gran (auto) 0.02 (0.00-0.03) X10*3/uL Absolute Neuts (auto) 3.3 (2.0-8.3) x10*3/uL Absolute Nucleated RBC 0.000 (0.0-0.012) X10*3/uL Nucleated RBC % (auto) 0.0 (0.0-0.2) /100WBC Sodium 141 (135-145) mmol/L Potassium 3.8 (3.3-5.1) mmol/L Chloride 107 (96-108) mmol/L Carbon Dioxide 30 H (22-29) mmol/L Anion Gap 8 L (12-20) BUN 8 L (9-16) mg/dL Creatinine 0.70 (0.5-1.4) mg/dL Estim Creat Clear Calc 92.0 Estimated GFR > 60 Random Glucose 95 (60-115) mg/dL Calcium 9.6 (8.4-10.2) mg/dL Magnesium 2.1 (1.6-2.6) mg/dL Total Bilirubin 0.5 (0.0-1.0) mg/dL Direct Bilirubin 0.2 (0.0-0.5) mg/dL AST 18 (5-31) U/L ALT 12 (0-31) U/L Alkaline Phosphatase 50 (39-117) U/L Total Protein 7.0 (6.5-8.0) g/dL Albumin 4.5 (3.5-5.0) g/dL Lipase 20 (8-78) U/L Beta HCG, Quant < 2 mIU/mL Urine Color Yellow Urine Appearance Clear Urine pH 7.0 (5.0-9.0) Ur Specific [place] <= 1.005 (1.005-1.025) Urine Protein Negative (Neg-Trace) mg/dL Urine Glucose (UA) Negative (Negative) mg/dL Urine Ketones Negative (Negative) mg/dL Urine Blood Negative (Negative) Urine Nitrite Negative (Negative) Ur Leukocyte Esterase Negative (Negative) Stool Occult Blood NEGATIVE (NEGATIVE) Radiology Impression Discussion of test interpretation with radiology: I have reviewed the radiologist's reading. Radiologist Impression: IMPRESSION: 1. Mild thickening of the mucosa of the distal sigmoid colon/rectum can be associated with proctitis. No focus of active hemorrhage identified within the bowel. 2. Multiple prominent periovarian vessels on the left can be associated with pelvic congestion syndrome. This document has been electronically signed by: Nnamdi Avitia MD on 04/04/2025 19:57:38 Discharge Plan Discharge Clinical Impression: Constipation, Acute proctitis, Back pain, Bright red rectal bleeding Patient Disposition: Home, Self-Care Instructions: Constipation (ED), High Fiber Diet (ED) Additional Instructions: your CT scan showed constipation there was also inflammation around your rectum that is common with constipation. I recommend a high-fiber diet and increasing fluid intake you should take MiraLax every day for the next 2 weeks I recommend Anusol suppositories for your bright red rectal bleeding you should follow-up with GI at the number provided your back pain I believe is unrelated to your the patient and is musculoskeletal. You may use ibuprofen/ Tylenol for pain and cyclobenzaprine for muscle spasms Prescriptions: New polyethylene glycol 3350 [Miralax] 17 gram powder in packet 17 g PO DAILY PRN (Reason: constipation) Qty: 30 0RF hydrocortisone acetate [Anusol-HC] 25 mg suppository 25 mg SC DAILY 5 Days Qty: 12 0RF cyclobenzaprine 10 mg tablet 10 mg PO TID PRN (Reason: muscle spasm) Qty: 20 0RF No Action hydrocodone-acetaminophen 5-300 mg tablet 1 tab PO Q8H PRN (Reason: acute pain) Qty: 10 0RF metronidazole 500 mg tablet 500 mg PO Q8H 7 Days Qty: 21 0RF ciprofloxacin HCl 500 mg tablet 500 mg PO Q12H 7 Days Qty: 14 0RF doxycycline hyclate 100 mg tablet 100 mg PO BID Qty: 20 0RF cephalexin 500 mg capsule 500 mg PO Q6H 10 Days Qty: 40 0RF ibuprofen 600 mg tablet 600 mg PO Q8H PRN (Reason: pain) Qty: 20 0RF lidocaine HCl 4 % (40 mg/mL) solution 15 ml mucous membrane TID PRN (Reason: pain) Qty: 50 0RF Referrals: Javi Otero MD [Physician] - (bright red rectal bleeding) Stand Alone Forms: Work/School Release Interventions: ED Discharge Assessment Last Done: 04/04/25 21:08 Discharge Date/Time: 04/04/25 21:09 Print Language: Macanese
[2025-04-04 14:17] LABS: MANUAL DIFF FLAG NO
[2025-04-04 14:20] LABS: Basophils Absolute Auto 0.1 X10*3/uL (0.0-0.2); Basophils Percent Auto 0.9 % (0-2); Eosinophils Absolute Auto 0.1 X10*3/uL (0.0-0.4); Eosinophils Percent Auto 1.2 % (0-4); Hematocrit 36.7 % (37.0-47.0); Hemoglobin 12.8 g/dl (12.0-16.0); Imm Gran Abs Auto 0.02 X10*3/uL (0.00-0.03); Imm Gran Pct Auto 0.3 % (0.0-0.4); Lymphocytes Percent Auto 33.6 % (20-40); Mean Corpuscular HGB Conc 34.9 g/dl (31.0-35.0); Mean Corpuscular Hemoglobin 31.9 pg (27.0-33.0); Mean Corpuscular Volume 91.5 fL (80.0-98.0); Mean Platelet Volume 8.8 fL (9.4-12.3); Monocytes Absolute Auto 0.4 X10*3/uL (0.1-1.2); Monocytes Percent Auto 7.2 % (2-11); Neutrophils Absolute Auto 3.3 x10*3/uL (2.0-8.3); Neutrophils Percent Auto 56.8 % (45-73); Platelet Count 198 X10*3/uL (160-400); Red Blood Count 4.01 X10*6/uL (4.20-5.50); Red Cell Distribution Width 13.3 % (11.0-16.0); White Blood Count 5.8 X10*3/uL (4.8-10.8)
[2025-04-04 14:35] LABS: Alanine Aminotransferase 12 U/L (0-31); Albumin Level 4.5 g/dL (3.5-5.0); Alkaline Phosphatase 50 U/L (39-117); Anion Gap 8 (12-20); Aspartate Amino Transferase 18 U/L (5-31); Bilirubin Direct 0.2 mg/dL (0.0-0.5); Bilirubin Total 0.5 mg/dL (0.0-1.0); Blood Urea Nitrogen 8 mg/dL (9-16); Calcium 9.6 mg/dL (8.4-10.2); Carbon Dioxide 30 mmol/L (22-29); Chloride 107 mmol/L (96-108); Estimated Glomerular Filt Rate > 60; Glucose Random 95 mg/dL (60-115); Lipase 20 U/L (8-78); Magnesium 2.1 mg/dL (1.6-2.6); Potassium 3.8 mmol/L (3.3-5.1); Sodium 141 mmol/L (135-145)
--- OUTSIDE RECORDS SUMMARY | 2025-04-04 16:22 | XMS_ITS | Encounter Summary ---
Author Organization [facility] Address [address] [place] [address] Care Team Providers Care Folder Hand Name Role Phone Krystian Parker MD Primary Care Provider [phone] Reason for Visit * Reason Onset Date Comments Back Pain 04/04/2025 Encounter Details Date Type Department Care Team (Late st Contact Info) Description 04/04/2025 Telephone Adult Medicine [address] [address] Krystian Parker MD [address] [place] [id number] Back Pain Social History Tobacco Use Types Packs/Day Years Used Date Smoking Tobacco: Former Cigarettes 0.5 30.3 S tarted: 11/29/1994 Smokeless Tobacco: Never Alcohol Use Standard Drinks/Week Comments No 0 (1 standard drink = 0.6 oz pur e alcohol) Comments Unknown Sex and Gender Information Value Date Recorded Sex Assigned at Female 02/07/2025 11:23 AM EDT Legal Sex Female 9:52 PM EST Gender Identity Female 02/07/2025 11:23 AM EDT Sexual Orientation Choose not to disclose 2024 11:23 AM EDT documented as of this encounter Progress Notes * Abigail Harley RN - 04/04/2025 11:37 AM EDT Pt. States she developed 10/10 back pain the whole back she sts when she sits down and attempts to get up he has to stand for a moment before attempting to walk, she is laying down mostly because of the pain, she has a headache, chills and feels warm . She denies freq. Of urination , burning withurination or bladder pressure . I do feel freezing , no cp or sob at present but stst she has hadboth over the last week , she also stst 1-2 weeks ago she had rectal bleeding with every stool since then it has stopped but states last stool today was black. No c/o dizziness. advised pt. With her symptoms to call for ambulance and be evaluated in the ER. Pt. agrees * Cyn Mccall - 04/04/2025 10:02 AM EDT Patient call requires triage: Symptoms patient is presenting: Patient is calling in due to debilitating back pain. Patient statesits her lower back from her tailbone to her kidney area. She can't walk straight, sleep, sit. Last week whenever she would have a bowl movement she would get one one and then bleed. She said it happened for 5-6 days. She had a hematoid removal 2 years ago so doesn't know if that's it. She also states she hasn't had a bowl movement for 4-5 days because it hurts to push. She states that when she isat work and moving around she forgets about it although it still hurts. How long has patient had these symptoms?: 4 days For ALL patients calling to schedule any appointment (routine, sick visit, follow up, consult, etc.) in the outpatient setting please ask the following questions: Do you have fever of higher than 101, sore throat with difficulty swallowing or severe shortness ofbreath? no If YES to any of these above symptoms, send a message to triage and do not book. Red dot. If no, an audio or video visit should be booked. Have you had close contact with someone with Coronavirus in the last 14 days? no Have you traveled abroad? no Have you traveled recently to another state outside of [place], [place], [place], [place], [place], [place], [place]? no o If yes, did you quarantine for 14 days or have a negative covid test? no If yes to any of the above, patient is not to be scheduled in office until after 14 day quarantine or negative covid test. If pain or injury related was it due to an accident at work or from a motor vehicle accident? If yes, date of accident/Injury: No If yes, gather 3rd libertarian insurance information Third Democrat Information: not applicable PCP: Krystian Parker MD Payor: [employer] PLAN / Plan: [place] MEDICAID / Product Type: *No Product type* / documented in this encounter Plan of Treatment Not on file documented as of this encounter Visit Diagnoses Not on filedocumented in this encounter Care Teams Folder Hand Relationship Specialty Start Date End Date Krystian Parker MD [address] [place] [address] PCP - General Internal Medicine 04/01/22 documented as of this encounter
--- OUTSIDE RECORDS SUMMARY | 2025-04-04 16:22 | XMS_ITS | Continuity of Care Document ---
Author Organization [facility] Address [address] [place] [address] [address] [place] [address] Phone Care Team Providers Care Roaster Operator Name Role Phone Nithin ENGLAND, LIBERTY, Javi KIRK Unavailable U navailable Allergies, Adverse Reactions, Alerts Substance Reaction Status Criticality No Known Allergies Active No Inform ation Procedures Procedure Date Duplex Scan-extrem Veins; Uni/ CT & MA A Endovenous Laser, 1st Vein- CT & MA Endovenous Rf, 1st Vein- CT & MA 2023 Offic/outpt E&m Estab 5 Min Trial- Telem edicine CT & MA 18-30 mmHg Thigh length gradient alexis nydia stocking Offic Cons New/estab Mod-hi 80- CT & MA Duplex Scan-extrem Veins; Comp- CT & MA Advance Directives Directive Yes / No Effective Date File Name No Information Encounters Encounter Description Practice Location Reason(s) For Visit Diagnoses Date Provider Providers Copied on Encounter [facility], [address] [place] [address] [address], [place], [id number], [place] tel:[phone] [facility] Encounter for follow-up examination after completed treatment for conditions other than malignant nePain in right leg Nithin ENGLAND, LIBERTY, YELENA Caldwell. [address] [facility] [address], [place], [id number], [place]. tel:[phone] Referring Provider: Lupis Mantilla MD A, [address] [place] [address], [id number]. tel:[phone] [facility], [address] [place] [address] Dr Cordero [address], [id number], [place] tel:[phone] [facility] [place] Varicose veins of right lower extremity with other complication s 4 Nithin ENGLAND RVT, YELENA Caldwell. [address] [place] [address], [facility] [place], [id number], [place]. tel:[phone] Referring Provider: Lupis Mantilla MD A, [address] [place] [address], [id number]. tel:[phone] [facility], [address] [place] [address] Dr Cordero [address], [id number], [place] tel:[phone] [facility] Varicose veins of right lower extremity with other complication s 4 Nithin ENGLAND RVT, YELENA Caldwell. [address] [place] [address], [place], [id number], [place]. tel:[phone] Referring Provider: Lupis Quach, [address] [place] [address], [id number]. tel:[phone] [facility], [address] [place] [address] Dr Cordero [address], [id number], [place] tel:[phone] [facility] No Information 4 Nithin ENGLAND RVT, YELENA Caldwell. [address] [place] [address], [place], [id number], [place]. tel:[phone] Offic/outpt E&m Estab 5 Min Trial- Telemedicine CT & [place] [facility], [address] [place] [address] Dr Cordero [address], [id number], tel:[phone] [facility] Localized edemaCramp and spasmRestles s legs syndromeVeno us insufficienc y (chronic) (peripheral) Pruritus, unspecified 4 Anish Stephens. [address] [place] [address], [place] [address], [facility] [place], [id number], [place]. tel:[phone] Referring Provider: Lupis Quach, [address] [place] [address], [address]. tel:[phone] [facility], [address] [place] [address] Dr Cordero [address] [address], [id number], tel:[phone] [facility] Varicose veins of bilateral lower extremities with other complication s 4 Nithin ENGLAND RVT, YELENA Caldwell. [address] [place] [address], [place], [id number], [place]. tel:[phone] Referring Provider: Lupis Quach, [address] [place] [address], [address]. tel:[phone] Offic Cons New/estab Mod-hi 80- CT & [place] [facility], [address] [place] [address] Dr Cordero [address] [address], [id number], tel:[phone] [place] Varicose veins of bilateral lower extremities with other complication [place] in right lower legPain in left lower legPain in right legRestless legs syndromePrur itus, unspecifiedP ain in left legCramp and spasmLocaliz ed edema Feb- 4 Nithin ENGLAND RVT, YELENA Caldwell. [address] [place] [address], [facility] [place], [id number], [place]. tel:[phone] Referring Provider: Lupis Quach, [address] [place] [address], [id number]. tel:[phone] [facility], [address], [place], [id number], [place] tel:[phone] CV[place] - [place] Chronic venous hypertension (idiopathic) with other complication s of bilateral lower extremity 4 Nithin ENGLAND, RVT, RPVI Javi. [address] [facility], [address], [place], [place], [id number], [place]. tel:[phone] Referring Provider: Lupis Mantilla MD A, [address], [place], [address]. tel:[phone] Family History Family Member Type Diagnosis Age At Onset No Information Payers Payer name Insurance type Covered republican ID Authorerica sandy(s) [facility] [id number] Social History Type Description Quantity Date Captured Comments Sex Female Smoking Status No Information Chief Complaint And Reason For Visit No Information Reason For Referral Reason For Referral No Information Plan Of Treatment Date Type Action Status Goal Tobacco cessation counseling completed Goal Diet education completed Goal Tobacco cessation counseling completed Referral Ordered: Weight management: Referral to physician timeframe: 3 Months (related to Body mass index (BMI) 25.0-25.9, adult) ordered History Of Present Illness Encounter Date Complaint History Of Prese nt Illness No Information Functional Status Date Functional Assessmen t No Information Instructions Date Instruction Additional Infor mation Pre and post instruc tions reviewed and [...] complications Assessments Type Assessment Date No Information Patient Care Teams Name Effective Dates (start - stop) Status Members No Information
--- OUTSIDE RECORDS SUMMARY | 2025-04-04 16:22 | XMS_ITS | Clinical Summary ---
Author Organization [address] Address [address] [place] [phone] Phone Care Team Providers Care Manifold Operator Name Role Phone Krystian Parker MD Primary Care Provider Allergies No known active allergies Medications docusate sodium (COLACE) 100 mg capsule Take 1 Capsule by mouth 2 times daily for 180 days. 2 Active fluticasone propionate (FLONASE) 50 mcg/actuation nasal spray Administer 2 sprays into each nostril 1 (one) time each day. 3 Active gabapentin (NEURONTIN) 100 mg capsule Take 1 Capsule by mouth at bedtime as needed (pain). 4 Active ibuprofen (ADVIL,MOTRIN) 600 mg tablet 4 Active loratadine (CLARITIN) 10 mg tablet Take 1 tablet (10 mg total) by mouth 1 (one) time each day. 3 Active diphenhydrAMINE 12.5 mg/5 mL elixir 50 mg, aluminum-magnes ium hydroxide-simet hicone 400-400-40 mg/5 mL suspension 20 mL, lidocaine 2 % solution 20 mL Swish and spit 10 mL every 4 hours as needed for Pain. Please mix the following in equal parts: MAALOX REGULAR STRENGTH 225-200-25 MG/5ML OR SUSP- 30cc LIDOCAINE VISCOUS 2 % MT SOLN - 30cc BENADRYL 12.5 MG/5ML OR ELIX - 30cc 2 Active acetaminophen (TYLENOL) 500 mg tablet Take by mouth every 6 (six) hours if needed for mild pain. Active Active Problems Problem Noted Date Diagnosed Date Cervical spondylosis 07/29/2023 Overview (09/01/2024): Last Assessment & Plan: Ms. Becerra continues to suffer with neck pain, interscapular pain, pain at the left elbow and in the right triceps. Her cervical spine MRI from August 12, 2023 reveals a left paracentral disc herniation at C5-6 disc with some distortion of the spinal cord at that level but no signal change. Films were reviewed with Dr. Hernandez who did say that a C5-6 anterior cervical discectomy with placement of artificial disc using the M6 system was a reasonable plan. I explained to the patient that would likely help her neck pain and probably her interscapular pain but would not likely help with the elbow or tricep pain. Risks, benefits, and alternatives were discussed with the patient in detail. She has asked appropriate questions, appeared to understand, and wishes to proceed with surgery. I gave her a bottle of Hibiclens and explained how to use it. She is currently on vacation from May 24 to June 11 and would have surgery after that whenever time is available. Assessment & Plan (02/07/2025 3:53 PM EDT): Ms. Becerra is about 6 months status post C5-6 anterior cervical discectomy with placement of artificial disc. She did well for several months until 2 or 3 months ago when she did began to develop right periscapular pain with radiation down the left arm in a C7 or C8 distribution. She is neurologically intact. X-rays show good position of her C5-6 artificial disc without any translation. He would not want to consider further surgery at this time. She agreed to go to some physical therapy and will follow-up with us afterwards. She will take NSAIDs for the discomfort. She will call to come in sooner if things are going in the wrong direction. Cervical high risk human pap illomavirus (HPV) DNA test positive 01/09/2014 Overview (09/01/2024): Normal cytology 2013. Neg for types 16/18. Repeat 2014 normal and neg HPV, repeat 3 years Depression 01/04/2006 Moderate cervical dysplasia, histologically conf irmed 01/04/2006 Known medical problems 01/04/2006 Overview (09/01/2024): U/S 08/2019-Small benign-appearing right submandibular lymph node corresponds with the palpable area. Assessment & Plan (09/01/2024 12:47 PM EDT): SWELLING, MASS, OR LUMP IN NECK- R side External hemorrhoids 01/04/2006 Overview (09/01/2024): IMO update Encounters Date Type Department Care Team Description 04/04/2025 Telephone Adult Medicine [facility] [address] [place] [phone] Krystian Parker MD Back Pain 02/07/2025 11:25 AM EDT - 02/07/2025 11:59 PM EDT Hospital Encounter [facility] Xray [address] [place] [phone] Cervical spondylosis Discharge Disposition: Home or Self Care 02/07/2025 11:00 AM EDT Office Visit Neurosurgery [facility] [address] [phone] Pierce Nava PA Cervical spondylosis (Primary Dx) 01/18/2025 Telephone [facility] [address] [phone] Faith Baugh MA from Last 3 Months Immunizations Name Administration Dates Next Due Influenza Quadrivalent, 0.5m l, preservative free (Fluarix; FluLaval; Fluzone) ages 6mo and older (Afluria) 3yo and older 10/09/2023 Td Tetanus diptheria (Tdvax) 7yo and older 12/27 Td, Unspecified 12/27/2003 Tdap Tetanus diptheria acell ular pertussis (Boostrix; Adacel) 7yo and older 03/29/2014 Surgical History Surgery Date Site/Laterality Comments CERVICAL BIOPSY W/ LOOP ELECTRODE EXCISION 06/2002 PROCEDURE: HISTORICAL CONE BIOPSY; COMMENT: MARIA DEL CARMEN 3 TUBAL LIGATION 2006 PROCEDURE: HISTORICAL TUBAL LIGATION OTHER SURGICAL HISTORY 01/12/2023 PROCEDURE: HISTORY OTHER; COMMENT: hemorrhoid surgery Medical History Medical History Date Comments Depressive disorder, not els ewhere classified 01/04/2006 DX:Depressive disorder, not elsewhere classified Swelling, mass, or lump in h ead and neck 01/04/2006 DX:Swelling, mass, or lump i n head and neck; COMMENT: blocked salivary gland 2022, Dr. Hines ENT External hemorrhoids without mention of complication 01/04/2006 DX:External hemorrhoids with out mention of complication Cervicalgia 01/04/2006 DX:Cervicalgia Other specified personal his tory presenting hazards to health(V15.89) 06/2002 DX:Other specifie d personal history presenting hazards to health(V15.89); COMMENT: MARIA DEL CARMEN 3 Back pain DX:Back pain Cervical spondylosis 07/29/2023 DX:Cervical spondylosis Family History Medical History Relation Name Comments No Known Problems Brother Lung cancer Father Colon polyps; m etastasized; ?liver Other: Other Father CAD No Known Problems Maternal Grandfather No Known Problems Maternal Grandmother Diabetes Mother Lung cancer Mother 64 Other: Smoker Mother No Known Problems Paternal Grandfather No Known Problems Paternal Grandmother Breast cancer Sister Other: down syndrome Son 1 had twi ns 2006 - 1 week after - living child with Downs No Known Problems Son 2 No Known Problems Son 3 No Known Problems Son 4 Colon cancer Neg Hx Ovarian cancer Neg Hx Relation Name Status Comments Brother Alive Father Maternal Grandfather Maternal Grandmother Mother Paternal Grandfather Paternal Grandmother Sister Alive Son 1 Alive Son 2 Alive Son 3 Alive Son 4 Alive Social History Tobacco Use Types Packs/Day Years [...] not to disclose 2024 11:23 AM EDT Obstetrics History Last Filed Vital Signs Vital Sign Reading Time Taken Comments Blood Pressure 128/82 10/11/2024 9:41 AM EST Pulse 64 10/11/2024 9:41 AM EST Temperature 36.9 ??C (98.5 ??F) 10/11/2024 9:41 AM ES T Respiratory Rate 14 10/11/2024 9:41 AM EST Oxygen Saturation - - Inhaled Oxygen Concentration - - Weight 66.7 kg (147 lb) 02/07/2025 11:58 AM EDT Height 167.6 cm (5' 6 ) 02/07/2025 11:58 AM EDT Body Mass Index 23.73 02/07/2025 11:58 AM EDT Plan of Treatment Health Maintenance Due Date Last Done Comments Hepatitis B Vaccines (1 of 3 - 19+ 3-dose series) 1995 Pneumococcal Vaccine: Pediatrics (0 to 5 Years) and At-Risk Patients (6 to 64 Years) (1 of 2 - PCV) 1995 Cervical Cancer Screening: HPV 1997 Colorectal Cancer Screening: Colonoscopy 11/07/2022 Hepatitis C Screening 11/07/2022 Social Influencers of Health Screening 11/07/2022 DTaP,Tdap,and Td Vaccines (4 - Td or Tdap) 03/29/2024 03/29/2014, 12/27/2003, 12/27/2003 COVID-19 Vaccine (4 - 2023-2 5 season) 2024 12/01/2021, 04/22/2021, 03/25/2021 Breast Cancer Screening 09/22/2024 09/22/20 22, 09/20/2021 Depression Screening 07/17/2025 07/17/2024 Influenza Vaccine (Season Ended) 2025 10/09/2023 Cholesterol Screening (Lipid Panel) 10/30/2029 10/30/2024, 03/21/2019 HIV Screening Completed 01/23/2009 HIB Vaccines Aged Out No longer eligi ble based on patient's age to complete this topic HPV Vaccines Aged Out No longer eligi ble based on patient's age to complete this topic Hepatitis A Vaccines Aged Out No long er eligible based on patient's age to complete this topic IPV Vaccines Aged Out No longer eligi ble based on patient's age to complete this topic MMR Vaccines Aged Out No longer eligi ble based on patient's age to complete this topic Meningococcal ACWY Vaccine Aged Out N o longer eligible based on patient's age to complete this topic Meningococcal B Vaccine Aged Out No l onger eligible based on patient's age to complete this topic RSV Immunization Patients Under 20 months Aged Out No longer eligible b ased on patient's age to complete this topic Varicella Vaccines Aged Out No longer eligible based on patient's age to complete this topic Procedures Procedure Name Priority Date/Time Associated Diagnosis Comments XR CERVICAL SPINE 4-5 VIEWS Routine 02/07/2025 11:40 AM EDT Cervical spondylosis LIPID PANEL WITH REFLEX TO DIRECT LDL Routine 10/30/2024 2:39 PM EST Sialodochitis Cervical spondylosis Onychomycosis Screening cholesterol level Screening for diabetes mellitus DEPRESSION SCREENING Routine 07/17/2024 SCREENING MAMMOGRAPHY BI 2-VIEW BREAST INC CAD Routine 09/22/2022 3:08 PM EDT Encounter for screening mammogram for malignant neoplasm of breast HIV SCREENING Routine 01/23/2009 from Last 3 Months or Most Recently Relevant to Health Maintenance Results * XR Cervical Spine 4-5 Views (02/07/2025 11:40 AM EDT) Anatomical Region Laterality Modality Spine, C-spine Radiographic Carlene ging 02/07/2025 11:5 1 AM EDT Impressions 02/07/2025 11:54 AM EDT Continued satisfactory appearance following placement of a disc prosthesis at the C5-6 level, unchanged in appearance since the intraoperative study of 08/01/2024. Alignment remains anatomic and there is no abnormal relative bony motion with flexion and extension. Range of motion is somewhat limited in flexion. Code 41220 -------- FINAL REPORT -------- Dictated By: Austin Amaya Dictated Date: 02/07/2025 11:51 ET Assigned Physician: Austin Amaya Reviewed and Electronically Signed By: Austin Amaya Signed Date: 02/07/2025 11:54 ET Workstation ID: [id number] Transcribed By: Self Edit Transcribed Date: 02/07/2025 11:51 ET Narrative 02/07/2025 11:54 AM EDT HISTORY: The patient is a 49-year-old female with neck pain and paresthesias in both shoulders, as well as left arm weakness. FINDINGS: Lateral views of the cervical spine in neutral, flexion, and extension positions, along with an AP view, are obtained. The study demonstrates that the patient has undergone placement of a disc prosthesis at the C5-6 level; this procedure was performed on 08/01/2024. The prosthesis remains well-positioned and intact. The alignment of the bony structures is anatomic. There is no abnormal relative bony motion with flexion and extension. Range of motion in flexion is limited. Alignment is otherwise anatomic. No fracture is seen. The remaining disc spaces are well-maintained. There is no prevertebral soft tissue swelling. Procedure Note Austin Amaya MD - 02/07/2025 HISTORY: The patient is a 49-year-old female with neck pain andparesthesias in both shoulders, as well as left arm weakness. FINDINGS: Lateral views of the cervical spine in neutral, flexion, andextension positions, along with an AP view, are obtained. The studydemonstrates that the patient has undergone placement of a disc prosthesisat the C5-6 level; this procedure was performed on 08/01/2024. Theprosthesis remains well-positioned and intact. The alignment of the bonystructures is anatomic. There is no abnormal relative bony motion withflexion and extension. Range of motion in flexion is limited. Alignment isotherwise anatomic. No fracture is seen. The remaining disc spaces arewell-maintained. There is no prevertebral soft tissue swelling. IMPRESSION: Continued satisfactory appearance following placement of a disc prosthesisat the C5-6 level, unchanged in appearance since the intraoperative studyof 08/01/2024. Alignment remains anatomic and there is no abnormal relativebony motion with flexion and extension. Range of motion is somewhatlimited in flexion. Code 57844 -------- FINAL REPORT -------- Dictated By: Austin Amaya Dictated Date: 02/07/2025 11:51 ET Assigned Physician: Austin Amaya Reviewed and Electronically Signed By: Austin Amaya Signed Date: 02/07/2025 11:54 ET Workstation ID: [id number] Transcribed By: Self Edit Transcribed Date: 02/07/2025 11:51 ET us Pierce MUELLER IMG XR PROCEDURES Final Resul t * (ABNORMAL) Lipid panel with reflex to direct LDL (10/30/2024 2:39 PM EST) Cholesterol 192 0 - 200 mg/dL LAB CHEMISTRY METHOD 10/30/2024 4:52 PM EST [facility] Triglycerides 102 0 - 150 mg/dL LAB CHEMISTRY METHOD 10/30/2024 4:52 PM EST [facility] HDL 55 >=40 mg/dL LAB CHEMISTRY METHOD 10/30/2024 4:52 PM EST [facility] LDL Calculated 117(H) 0 - 100 mg/dL LAB CHEMISTRY METHOD 10/30/2024 4:52 PM EST [facility] VLDL Cholesterol Manuel 20.4 mg/dL LAB CHEMISTRY METHOD 10/30/2024 4:52 PM EST [facility] Non HDL Chol. (LDL+VLDL) 137 <145 mg/dL LAB CHEMISTRY METHOD 10/30/2024 4:52 PM EST [facility] Chol/HDL Ratio 3.5 0.0 - 4.4 LAB CHEMISTRY METHOD 10/30/2024 4:52 PM EST [facility] Blood Venous blood specimen / Unknown Venipuncture / Unknown 10/30/2024 2:39 PM EST 10/30/2024 2:39 PM EST Sommer MUELLER LAB BLOOD ORDERABLES Fin al Result [facility] [address] [place] [address], [place] [phone] * Depression Screening (07/17/2024) Depression Screening abstracted Result [facility] Historical Provider HEALTH MAINTENANCE Final Result * SCREENING MAMMOGRAPHY BI 2-VIEW BREAST INC CAD (09/22/2022 3:08 PM EDT) Anatomical Region Laterality Modality Radiographic Carlene ging 09/20/2021 11:4 3 AM EDT Narrative 09/23/2022 4:25 PM EDT This is a summary report. The complete report is available in the patient's medical record. If you cannot access the medical record, please contact the sending organization for a detailed fax or copy. Full field digital screening 2D and tomosynthesis mammography, reviewed with CAD and compared to previous. The breast tissue is heterogeneously dense, limiting sensitivity. No suspicious mass, architectural distortion or suspicious calcifications are identified. IMPRESSION: : Dense breast tissue, limiting the sensitivity of mammography. No mammographic evidence of malignancy. BIRADS 1-Negative; N. 5 year breast cancer risk assessment 1.4 % Lifetime breast cancer risk assessment 15.5 % Breast cancer risk category Moderate (15% - 20%) Procedure Note Ele Durand MD - 11/17/2022 This is a summary report. The complete report is available in thepatient's medical record. If you cannot access the medical record, pleasecontact the sending organization for a detailed fax or copy. Full field digital screening 2D and tomosynthesis mammography, reviewedwith CAD and compared to previous. The breast tissue is heterogeneouslydense, limiting sensitivity. No suspicious mass, architectural distortionor suspicious calcifications are identified. IMPRESSION: : Dense breast tissue, limiting the sensitivity of mammography. Nomammographic evidence of malignancy. BIRADS 1-Negative; N. 5 year breast cancer risk assessment 1.4 % Lifetime breast cancer risk assessment 15.5 % Breast cancer risk category Moderate (15% - 20%) Result [facility] Alicia MUELLER IMG XR PROCEDURES Final Re sult * HIV Screening (01/23/2009) Pathologist [facility] HIV Screening abstracted Result [facility] Historical Provider HEALTH MAINTENANCE Final Result from Last 3 Months or Most Recently Relevant to Health Maintenance Insurance [facility] [place] [address] Care Teams Manifold Operator Relationship Specialty Start Date End Date Krystian Parker MD [address] [place] [address] PCP - General Internal Medicine 04/01/22
[2025-04-04 17:31] LABS: Appearance Urine Clear; Color Urine Yellow; Glucose Urine UA Negative (Negative); Leukocyte Esterase Urine Negative (Negative); Nitrite Urine Negative (Negative); Specific Gravity - Urine <= 1.005 (1.005-1.025); Urine Blood Negative (Negative); Urine Ketones Negative (Negative); Urine Protein Negative (Neg-Trace)
[2025-04-04 18:49] LABS: OBS Int Ctl Valid YES; OBS1 NEGATIVE (NEGATIVE)
[2025-04-04 18:59] LABS: HCG Quantitative < 2 mIU/mL
[2025-04-04] MEDS: iohexoL 350 MG/ML 100 ML INFUS..BTL IV (19:25)
[2025-04-04 21:08] VITALS: BP 135/80; PULSE 68; RESP 18; TEMP 36.6; O2SAT 98
== END 2025-04-04 21:09 | disposition home or self-care (01) ==
PROVIDERS: Physician Assistant; Emergency Provider Emergency Medicine
DX: K59.00 Constipation, unspecified (principal); K62.89 Other specified diseases of anus and rectum; K62.5 Hemorrhage of anus and rectum; M54.50 Low back pain, unspecified; R31.9 Hematuria, unspecified; R10.2 Pelvic and perineal pain; Z79.899 Other long term (current) drug therapy
CPT/HCPCS: 36415; 74177; 80048; 80076; 81003; 82272; 83690; 83735; 84702; 85025; 99283; 99284; Q9967

== ENCOUNTER → 2025-04-04 18:31 | Outpatient (BNV) | payer OTHER, SELFPAY | PROVIDERS: Emergency Provider Emergency Medicine; Visit Provider Radiology Diagnostic Radiology | DX: K62.5 Hemorrhage of anus and rectum (principal); M54.9 Dorsalgia, unspecified | CPT/HCPCS: 74177 ==

== ENCOUNTER 2025-08-28 10:04 | Outpatient (AMB) | payer OTHER, SELFPAY ==
--- OUTSIDE RECORDS SUMMARY | 2025-08-22 15:01 | XMS_ITS | Encounter Summary ---
Author Organization [facility] Address [address] [place] [address] Care Team Providers Care Community Health Director Name Role Phone Krystian Parker MD Primary Care Provider [phone] Encounter Details Date Type Department Care Team (Latest Contact Info) Description 08/22/2025 3:01 PM EDT - 08/22/2025 11:59 PM EDT Hospital Encounter [facility] Xray [address] [place] [phone] Cervical spondylosis Discharge Disposition: Home or Self Care Social History Tobacco Use Types Packs/Day Years Used Date Smoking Tobacco: Some Days Cigarettes 0.5 30.7 Started: 11/29/1994 Smokeless Tobacco: Never Alcohol Use Standard Drinks/Week Comments No 0 (1 standard drink = 0.6 oz pur e alcohol) Comments No Sex and Gender Information Value Date Recorded Sex Assigned at Female 02/07/2025 11:23 AM EDT Legal Sex Female 9:52 PM EST Gender Identity Female 02/07/2025 11:23 AM EDT Sexual Orientation Choose not to disclose 2024 11:23 AM EDT documented as of this encounter Medications at Time of Discharge acetaminophen (Tylenol 8 Hour) 650 mg 8 hr tablet Take 1 tablet (650 mg total) by mouth every 8 (eight) hours if needed for mild pain. Do not crush, chew, or split. 90 tablet 3 04/11/2025 cyclobenzaprine (FLEXERIL) 10 mg tablet Take 1 tablet (10 mg total) by mouth at bedtime as needed for muscle spasms. 30 tablet 3 04/11/2025 fluticasone propionate (FLONASE) 50 mcg/actuation nasal spray Administer 2 sprays into each nostril 1 (one) time each day. 07/15/2023 gabapentin (NEURONTIN) 100 mg capsule Take 1 capsule (100 mg total) by mouth 2 (two) times a day. 60 each 3 04/11/2025 hydrocortisone (ANUSOL-HC) 2.5 % rectal cream Insert into the rectum 4 (four) times a day if needed for hemorrhoids (rectal discomfort). Apply to affected areas 30 g 3 04/11/2025 ibuprofen (ADVIL,MOTRIN) 600 mg tablet 05/08/2024 lactulose (CHRONULAC) solution Take 10 mL (6.6667 g total) by mouth 1 (one) time each day if needed (constipation). 300 mL 5 04/11/2025 polyethylene glycol (PEG) 17 gram/dose oral powder Take 17 g by mouth 1 (one) time each day. senna-docusate (PERICOLACE) 8.6-50 mg per tablet Take 1 tablet by mouth 1 (one) time each day. 180 each 1 04/11/2025 documented as of this encounter Discharge Disposition Disposition Code Departure Means Destination Home or Self Care documented in this encounter Plan of Treatment Not on file documented as of this encounter Procedures Procedure Name Priority Date/Time Associated Diagnosis Comments XR CERVICAL SPINE 4-5 VIEWS Routine 08/22/2025 3:08 PM EDT Cervical spondylosis documented in this encounter Results * XR Cervical Spine 4-5 Views (08/22/2025 3:08 PM EDT) Anatomical Region Laterality Modality Spine, C-spine Radiographic Carlene ging 08/23/2025 7:46 AM EDT Impressions 08/23/2025 7:48 AM EDT Continued satisfactory appearance following placement of a Mobi C disc prosthesis at the C5-6 level, unchanged in appearance since 02/07/2025. Alignment remains anatomic and there is no abnormal relative bony motion with flexion and extension. Range of motion in flexion is again seen to be limited. Code 72419 -------- FINAL REPORT -------- Dictated By: Austin Amaya Dictated Date: 08/23/2025 07:46 ET Assigned Physician: Austin Amaya Reviewed and Electronically Signed By: Austin Amaya Signed Date: 08/23/2025 07:48 ET Workstation ID: [id number] Transcribed By: Self Edit Transcribed Date: 08/23/2025 07:46 ET Narrative 08/23/2025 7:48 AM EDT HISTORY: The patient is a 50-year-old female for follow-up of cervical spine surgery. FINDINGS: Lateral views of the cervical spine in neutral, flexion, and extension positions, along with an AP view, are obtained. The patient is again seen to have undergone placement of a Mobi C disc prosthesis at the C5-6 level as also demonstrated on the prior study performed 02/07/2025. The prosthesis remains well-positioned and intact. Alignment is anatomic. No fracture is seen. The remaining disc spaces are well-maintained. There is no abnormal relative bony motion with flexion and extension. Range of motion in flexion is somewhat limited. There is no prevertebral soft tissue swelling. Procedure Note Austin Amaya MD - 08/23/2025 HISTORY: The patient is a 50-year-old female for follow-up of cervicalspine surgery. FINDINGS: Lateral views of the cervical spine in neutral, flexion, andextension positions, along with an AP view, are obtained. The patient isagain seen to have undergone placement of a Mobi C disc prosthesis at theC5-6 level as also demonstrated on the prior study performed 02/07/2025.The prosthesis remains well-positioned and intact. Alignment is anatomic.No fracture is seen. The remaining disc spaces are well-maintained. Thereis no abnormal relative bony motion with flexion and extension. Range ofmotion in flexion is somewhat limited. There is no prevertebral softtissue swelling. IMPRESSION: Continued satisfactory appearance following placement of a Mobi C discprosthesis at the C5-6 level, unchanged in appearance since 02/07/2025.Alignment remains anatomic and there is no abnormal relative bony motionwith flexion and extension. Range of motion in flexion is again seen to belimited. Code 76546 -------- FINAL REPORT -------- Dictated By: Austin Amaya Dictated Date: 08/23/2025 07:46 ET Assigned Physician: Austin Amaya Reviewed and Electronically Signed By: Austin Amaya Signed Date: 08/23/2025 07:48 ET Workstation ID: [id number] Transcribed By: Self Edit Transcribed Date: 08/23/2025 07:46 ET us Yas Hernandez MD IMG XR PROCEDURES Final Result documented in this encounter Visit Diagnoses Diagnosis Cervical spondylosis Cervical spondylosis without myelopathy documented in this encounter Care Teams Community Health Director Relationship Specialty Start Date End Date Krystian Parker MD [address] [place] [address] PCP - General Internal Medicine 04/01/22 documented as of this encounter
--- OUTSIDE RECORDS SUMMARY | 2025-08-23 14:45 | XMS_ITS | Encounter Summary ---
Author Organization [facility] Address [address] [place] [address] Care Team Providers Care Grain Scooper Name Role Phone Krystian Parker MD Primary Care Provider [phone] Reason for Visit * Reason Comments cervical spondylosis 1 year follow up wi th xrays Encounter Details Date Type Department Care Team ([facility] st Contact Info) Description 08/23/2025 2:45 PM EDT Office Visit Neurosurgery [place] [facility] [address] [place] [id number] Yas Hernandez MD [address] [place] [address] Cervical spondylosis (Primary Dx); Chronic bilateral low back pain without sciatica Social History Tobacco Use Types Packs/Day Years [...] as of this encounter Progress Notes * Yas Hernandez MD - 08/23/2025 3:34 PM EDTAssociated Problem(s): Back pain Ms. Becerra feels achy across the upper lumbar region and sometimes into her hips. There were no worrisome findings on exam with no point tenderness, negative straight leg raise and negative compression test. She is fine to continue with deep tissue massage at home. We will try to track down the results of her previous EMG. * Yas Hernandez MD - 08/23/2025 3:33 PM EDTAssociated Problem(s): Cervical spondylosis I discussed the x-rays in detail with Ms. Becerra and her family noting that the M6 device is in great position with no evidence of osteolysis. She has maintenance of the normal lordosis with no instability in any level. In particular, the C6-7 disc remains tall while there is some loss of height at C7- T1. She is describing some left C7 distribution pain along the left scapula and in the left hand though without radiation in between. She has been inconsistent with taking her gabapentin and felt worse after the last 2 physical therapy visits. We discussed that the goal of PT was to diminish her pain level is much as possible but, primarily,to help her to be functional in her daily routine. If she is able to do her normal daily activities, then she does not have to go back to physical therapy. She is unclear as to whether or not the gabapentin is helping her so, she will be diligent about taking it for at least the next few weeks and,if it clearly helps to reduce her overall pain then she should continue taking it. Otherwise, she may wean off of it altogether. * Yas Hernandez MD - 08/23/2025 2:45 PM EDT NEUROSURGERY OFFICE VISIT Date of Visit: 08/23/2025 Referring Physician: No ref. provider found Primary Care Physician: Krystian Parker MD RE: Yasmin Becerra : 1975 Chief Complaint Patient presents with cervical spondylosis 1 year follow up with xrays Dear Dr Krystian Parker MD Yasmin Becerra is a 50 y.o. female who presents to our office with cervical spine x-rays is a 1 year follow-up after C5-6 artificial disc replacement. Her initial symptoms improved including the profound left elbow pain that caused her to drop things. She now has that on occasion but is able to lift and carry without dropping anything. She has less neck pain but is expected. Seeing a burning paresthesia around the left medial scapula and with pain and achiness in her hand particularly the 2nd and 3rd digits. She denies pain radiating from her shoulder down the arm. I has been to physical therapy where manipulation and cervicothoracic massage made her worse the following day where she felt unable to turn and move. Her partner describes that she does not take gabapentin consistently and he feels she does better on the days when she does take it. The patient also describes transverse lowerback pain which she thought may be in her hips and she feels that she needs to stretch all the time. This is worse with standing and activity, she feels fine sitting down. She recalls having upper and lower extremity EMGs at [facility] approximately 10 years ago and was told of nerve damage in her legs. Past Medical History: Diagnosis Date Back pain DX:Back pain Cervical spondylosis 07/29/2023 DX:Cervical spondylosis Cervicalgia 01/04/2006 DX:Cervicalgia Depressive disorder, not elsewhere classified 01/04/2006 DX:Depressive disorder, not elsewhere classified External hemorrhoids without mention of complication 01/04/2006 DX:External hemorrhoids without mention of complication Other specified personal history presenting hazards to health(V15.89) 06/2002 DX:Other specified personal history presenting hazards to health(V15.89); COMMENT: MARIA DEL CARMEN 3 Swelling, mass, or lump in head and neck 01/04/2006 DX:Swelling, mass, or lump in head and neck; COMMENT: blocked salivary gland 2022, Dr. Hines ENT Past Surgical History: Procedure Laterality Date CERVICAL BIOPSY W/ LOOP ELECTRODE EXCISION 06/2002 PROCEDURE: HISTORICAL CONE BIOPSY; COMMENT: MARIA DEL CARMEN 3 OTHER SURGICAL HISTORY 01/12/2023 PROCEDURE: HISTORY OTHER; COMMENT: hemorrhoid surgery TUBAL LIGATION 2006 PROCEDURE: HISTORICAL TUBAL LIGATION No Known Allergies Current Outpatient Medications Medication Instructions acetaminophen (TYLENOL 8 HOUR) 650 mg, oral, Every 8 hours PRN, Do not crush, chew, or split. cyclobenzaprine (FLEXERIL) 10 mg, oral, Nightly PRN fluticasone propionate (FLONASE) 50 mcg/actuation nasal spray 2 sprays, Daily gabapentin (NEURONTIN) 100 mg, oral, 2 times daily hydrocortisone (ANUSOL-HC) 2.5 % rectal cream rectal, 4 times daily PRN, Apply to affected areas ibuprofen (ADVIL,MOTRIN) 600 mg tablet lactulose (CHRONULAC) 6.6667 g, oral, Daily PRN polyethylene glycol (PEG) 17 g, Daily senna-docusate (PERICOLACE) 8.6-50 mg per tablet 1 tablet, oral, Daily Social History Tobacco Use Smoking status: Some Days Current packs/day: 0.50 Average packs/day: 0.5 packs/day for 30.7 years (15.4 ttl pk-yrs) Types: Cigarettes Start date: 11/29/1994 Smokeless tobacco: Never Substance Use Topics Alcohol use: No Drug use: Yes Types: Marijuana/Cannabis Social History Social History Narrative Works at [employer] Family History Problem Relation Name Age of Onset Lung cancer Mother 62.00 64 Diabetes Mother Other (Other: Smoker) Mother Lung cancer Father 83.00 Colon polyps; metastasized; ?liver Other (Other: Other) Father CAD Breast cancer Sister 49.00 No Known Problems Brother Other (Other: down syndrome) Son had twins 2006 1 week after - living child with Downs No Known Problems Maternal Grandmother No Known Problems Maternal Grandfather No Known Problems Paternal Grandmother No Known Problems Paternal Grandfather No Known Problems Son No Known Problems Son No Known Problems Son Colon cancer Neg Hx Ovarian cancer Neg Hx Physical Exam Pt is awake and alert. Speech and comprehension are intact. Respirations are unlabored, heart has regular rate. There is no tenderness, step-off or deformity along the cervical and lumbar spine. She has full range of motion of the cervical spine with well-healed right transverse incisions. Seated SLR is negative, there is no tenderness to palpation of the midline lumbar spine or SI joints. Compression test across the hips is negative. Motor exam reveals 5/5 strength to resistence bilaterally inUE's and LE's. Patient is ambulating independently. Imaging Review of the AP/lateral and flexion/extension cervical x-rays at [facility] today show a well-positioned M6 device at C5-6 with no translation or evidence of osteolysis. She has maintained lordosis and no instability. There is moderate loss of disc height at C7-T1. Assessment/Plan Problem List Items Addressed This Visit Cervical spondylosis - Primary I discussed the x-rays in detail with Ms. Becerra and her family noting that the M6 device is in great position with no evidence of osteolysis. She has maintenance of the normal lordosis with no instability in any level. In particular, the C6-7 disc remains tall while there is some loss of height at C7- T1. She is describing some left C7 distribution pain along the left scapula and in the left hand though without radiation in between. She has been inconsistent with taking her gabapentin and felt worse after the last 2 physical therapy visits. We discussed that the goal of PT was to diminish her pain level is much as possible but, primarily,to help her to be functional in her daily routine. If she is able to do her normal daily activities, then she does not have to go back to physical therapy. She is unclear as to whether or not the gabapentin is helping her so, she will be diligent about taking it for at least the next few weeks and,if it clearly helps to reduce her overall pain then she should continue taking it. Otherwise, she may wean off of it altogether. Back pain Ms. Becerra feels achy across the upper lumbar region and sometimes into her hips. There were no worrisome findings on exam with no point tenderness, negative straight leg raise and negative compression test. She is fine to continue with deep tissue massage at home. Thank you for allowing us to care for your patient. Yas Hernandez MD on 08/23/2025 at 3:35 PM EDT CC: No ref. provider found Krystian Parker MD [facility] Neurosurgical [place] documented in this encounter Plan of Treatment Not on file documented as of this encounter Visit Diagnoses Diagnosis Cervical spondylosis- Primary Cervical spondylosis without myelopathy Chronic bilateral low back pain without sciatica documented in this encounter Care Teams Grain Scooper Relationship Specialty Start Date End Date Krystian Parker MD [address] [place] [address] PCP - General Internal Medicine 04/01/22 documented as of this encounter
[2025-08-28 10:09] VITALS: BP 117/81; PULSE 66; BMI 23.1
--- NOTE | 2025-08-28 10:09 | MHC.OFFVIS ---
Vital Signs 08/28/25 10:09 Height 5 ft 6 in Weight 142 lb 13.753 oz BMI 23.1 BP 117/81 Blood Pressure Location Lt brachial Position Sitting Pulse 66 Intake Visit Reasons: Constipation Intake Note: New patient in office today for constipation. CC; Pt reports hx of colonoscopy, hemorrhoidectomy, and exploratory. She c/o not been able to have BM, and bleeding hemorrhoids. Per patient when she is trying to have a BM it feels like a blade from inside. She also c/o lower back pain sometimes. Digital Controls Technical Officer Required: No Accompanied by: Self / Same As Patient Allergies No Known Allergies Allergy (Verified 08/28/25 10:29) HPI HPI Constipation: Details: 50-year-old female here for initial evaluation of constipation. She is referred from [facility]. PMX Cervical spondylosis Chronic low back pain Constipation External hemorrhoids * SURGICAL HISTORY HEMORRHOIDECTOMY COLONOSCOPY-2 YEARS AGO * ALLERGIES: NKDA * [email or web address] LABS: Laboratory Tests 04/04/25 14:14 WBC 5.8 Hgb 12.8 Hct 36.7 L MCV 91.5 MCH 31.9 Plt Count 198 Estimated GFR > 60 Total Bilirubin 0.5 Direct Bilirubin 0.2 AST 18 ALT 12 Alkaline Phosphatase 50 TODAY'S VISIT [facility] Medical History External hemorrhoids Carpal tunnel syndrome Surgical History H/O colonoscopy H/O hemorrhoidectomy Family History Mother Lung cancer Father Lung cancer Sister Breast cancer Social History Alcohol intake: never Tobacco use type: Cigarette Cigarette Packs Per Day: 0.5 Review of Systems Const Denies fatigue, Denies fever(s), Denies night sweats, Denies poor appetite and Denies weight loss ENT Reports Normal hearing present, Denies dental pain, Denies dysphagia, Denies hearing loss, Reports hoarseness, Denies mouth pain, Reports nasal congestion, Reports nasal discharge, Reports neck pain, Denies odynophagia, Reports post nasal drip, Denies throat swelling, Denies tongue swelling and Reports other (Dentition adequate) Card Reports no additional complaints Resp Reports cough GI Details: Rectal pain Denies abdominal pain, Denies melena, Denies bloating, Reports hematochezia, Reports constipation, Denies GI cramping, Denies dysphagia, Denies excessive flatus, Denies early satiety, Denies heartburn, Denies diarrhea, Denies nausea, Denies odynophagia, Denies vomiting and Denies hematemesis Musc Reports abnormal gait, Reports back pain, Reports myalgias, Reports arthralgias, Reports neck pain, Reports radiating pain into limb and Reports stiffness Skin/Breast Denies pruritus, Denies lesions, Denies rash and Denies jaundice Neuro Reports Normal hearing present, Denies Abnormal speech present and Reports abnormal gait Endo Denies fatigue Aller/Immun Denies throat swelling and Denies tongue swelling Physical Exam Vital Signs: Last Vital Signs Pulse 66 08/28/25 10:09 BP 117/81 08/28/25 10:09 BMI result Body Mass Index 23.1 Const General: cooperative, no acute distress, well developed and well groomed Nutritional Appearance: average body habitus and well nourished Orientation/consciousness: oriented to person, oriented to place and oriented to time Limitations: No language barrier HEENT Head: Yes normocephalic and Yes atraumatic Eyes General: appearance normal, both eyes and all related structures Pupils: Equal, round and reactive pupils present Neck Neck: Yes normal visual inspection and Yes no lymphadenopathy Thyroid: Thyroid normal Resp Effort & Inspection: normal respiratory effort and able to speak in complete sentences Auscultation: clear to auscultation bilaterally Cardio Rate: regular rate Rhythm: regular rhythm Heart sounds: Normal, physiologic split S2 sound present Peripheral pulses: radial pulses present and posterior tibial pulses present GI Inspection: No distended, No Abdominal panniculus present and Yes striae Palpation (GI): Soft to palpation, nontender, no guarding, not rigid and No hepatosplenomegaly present Percussion: Yes normal to percussion Auscultation: normal bowel sounds Rectal Exam - Female: deferred Back/Spine/Pelvis Thoracic/Lumbar Spine: thoracic and lumbar spine normal to inspection, thoraco-lumbar ROM normal, straight leg raise negative bilaterally, pain with thoraco-lumbar ROM, paraspinal muscle tenderness and thoraco-lumbar spasm Sacroiliac joints: bilaterally tender to palpation and by passive hyperextension of lower ext (Right greater than left) Skin General skin exam: no rashes or lesions noted, turgor normal, skin not dry, no jaundice, No spider nevi and no striae Rashes: no rashes Nails: normal Neuro General: oriented to person, oriented to place and oriented to time Cranial nerves: Yes Equal, round and reactive pupils present and Yes Normal hearing present Speech: No Abnormal speech present Gait exam (Neuro): Normal gait present Motor exam (neuro): 5/5 motor strength present throughout Deep tendon reflexes (DTR's): Right patellar reflex intensity grade: 1+, Left patellar reflex intensity grade: 1+, Right ankle reflex intensity grade: 1+ and Left ankle reflex intensity grade: 1+ Extrem General: Yes normal to inspection, No clubbing, No cyanosis and No edema Psych Appearance: grossly normal and well kempt Mental Status: mental status grossly normal Speech and movement: Normal speech and movement present Affect: normal affect Attitude: cooperative Thought process: Normal thought process present and not confabulating Thought content: Normal thought content present Insight: Fair insight present (Psych) and Limited insight present (Psych) Judgement: Fair judgement present (Psych) and Limited judgement present (Psych) Assessment & Plan Assessment & Plan (1) Cervical spondylosis: Code(s): M47.812 - Spondylosis without myelopathy or radiculopathy, cervical region Category: Medical (2) Chronic low back pain: Code(s): M54.50 - Low back pain, unspecified; G89.29 - Other chronic pain Category: Medical (3) Chronic idiopathic constipation: Code(s): K59.04 - Chronic idiopathic constipation Category: Medical (4) Hip pain: Code(s): M25.559 - Pain in unspecified hip Category: Medical (5) Rectal bleeding: Code(s): K62.5 - Hemorrhage of anus and rectum Category: Medical Plan - The patient is a 50-year-old female presenting with constipation and related complaints. - Her issue with constipation began a few years ago, historically tracing back to a post-surgical incident involving exploratory surgery and a hemorrhoidectomy. - Describes ongoing passage of small, hard stools with significant rectal pain and bleeding during defecation, continuously uncomfortable enough to affect her daily activities. - Various medications including Colace, senna, bisacodyl, MiraLax, and lactulose have only marginally alleviated symptoms; persistent hemorrhoids remain a challenge. - Current diet lacks adequate fiber, complicating bowel regularity despite various ziyu-lye-[id number] treatment efforts. - The patient previously underwent a colonoscopy at [facility], yielding no significant findings of polyps or malignancy. We will need to request the records for this. - Additional concerns include a history of back pain, unclear if related to current bowel complaints, but notably exacerbated with movements and postural changes. - The patient has nutritional dilemmas potentially contributing to her gastrointestinal concerns, characterized by minimal fruit and vegetable intake and erratic meal consumption patterns. This is mostly due to socioeconomic problems involving limited income and lack of supplemental support. She apparently make sure her son eats before she does. Her diet consisting majorly of grilled cheese sandwiches, cookies, and ice cream. Because we do not have access to her [facility] records, and her knowledge of past medical problems and procedures is somewhat limited I want to get a series of studies. We will want to start with a thyroid to make sure this is not impacting her constipation. I also think we should get a small-bowel follow-through study and a CT of the abdomen and pelvis to try to tease out constipation as a cause of her back pain versus musculoskeletal problems. Of note, she does have significant cervical degenerative disc disease with disc herniations that may require surgery in the near future. Due to her bleeding I want to get a CBC and make sure she is not anemic, although oral iron therapy would likely also complicate her constipation. I also think an x-ray of the lumbar sprain along with the sacroiliac joints in the hips would help clarify the source of her pain. I am going to start her on Linzess 145 micro g and we will titrate to affect her side effect and I am also going to order a fiber tablet hoping that her insurance will pay for this since her diet is lacking. Return office visit in 3 weeks Orders: Orders TSH reflex Free T4 Today K59.04 - Chronic idiopathic constipation XR hip BI w PEL1V Today G89.29 - Other chronic pain, M25.559 - Pain in unspecified hip, M54.50 - Low back pain, unspecified XR sacroiliac joint min 3V Today G89.29 - Other chronic pain, M25.559 - Pain in unspecified hip, M54.50 - Low back pain, unspecified XR lumbar spine 2-3V Today G89.29 - Other chronic pain, M25.559 - Pain in unspecified hip, M54.50 - Low back pain, unspecified FL upper GI small bowel Today G89.29 - Other chronic pain, M25.559 - Pain in unspecified hip, M54.50 - Low back pain, unspecified Complete Blood Count Auto Diff Today K62.5 - Hemorrhage of anus and rectum Ferritin Today K62.5 - Hemorrhage of anus and rectum Medications: New hydrocortisone 2.5% (Anusol-HC) 1 appl NC BID PRN 30 grams 0RF hemorrhoids linaclotide (Linzess) Take first thing in the morning with a full glass of water. 145 mcg PO QAM 30 caps 3RF K58.1 - Irritable bowel syndrome with constipation methylcellulose (laxative) (Fiber Laxative (methylcellulose)) 500 mg PO BID 60 tabs 6RF K59.04 - Chronic idiopathic constipation Coding Level of Care Code New Pt Level 3 (90707) Diagnoses Cervical spondylosis M47.812 Chronic low back pain M54.50; G89.29 Chronic idiopathic constipation K59.04 Hip pain M25.559 Rectal bleeding K62.5
--- OUTSIDE RECORDS SUMMARY | 2025-08-28 11:09 | XMS_ITS | Encounter Summary ---
Author Organization [facility] Address [address] [place] [address] Care Team Providers Care Barrel Builder Name Role Phone Krystian Parker MD Primary Care Provider [phone] Reason for Referral * Neurology (Routine) - Pending Review Specialty Diagnoses / Procedures Referred By Contac t Referred To Contact Neurology Diagnoses Chronic bilateral low back pain without sciatica Procedures EMG Bisi Shelton MD [address] [place] [address] Phone: tel: fax: Referral ID Status Reason Start Date Expiration Date V isits Requested Visits Authorized [id number] Pending Review 08/24/2025 08/24/2026 1 1 Encounter Details Date Type Department Care Team (Late st Contact Info) Description 08/24/2025 Telephone Neurosurgery [facility] [address] [address] Bisi Shelton MD [address] [place] [address] Social History Tobacco Use Types Packs/Day Years [...] as of this encounter Progress Notes * Bisi Shelton MD - 08/24/2025 5:05 PM EDTAddended by: BISI SHELTON on: 08/24/2025 05:05 PM Modules accepted: Orders * Bisi Shelton MD - 08/24/2025 4:58 PM EDT I spoke to Del Trung Cash after we were able to obtain the EMG report from [place] from 04/23/2011 which showed mild peripheral neuropathy bilaterally in addition to mild tarsal tunnel syndrome. Her mainconcern is her lower back and hip pain though she continues to describe leg symptoms. I would like to repeat the EMG to differentiate between radiculopathy and peripheral neuropathy. She is agreeable and is awaiting a new lumbar spine MRI after September. documented in this encounter Plan of Treatment Scheduled Orders Name Type Priority Associated Diagnoses Orde r Schedule EMG Neurology Routine Chronic bilateral low back pain without sciatica 1 Occurrences starting 08/24/2025 until 08/24/2026 documented as of this encounter Visit Diagnoses Diagnosis Chronic bilateral low back pain without sciatica- Primary documented in this encounter Care Teams Barrel Builder Relationship Specialty Start Date End Date Krystian Parker MD [address] [place] [address] PCP - General Internal Medicine 04/01/22 documented as of this encounter
--- OUTSIDE RECORDS SUMMARY | 2025-08-28 11:09 | XMS_ITS | Clinical Summary ---
Author Organization [facility] [address] [place] [address] [place] [phone] Phone Care Team Providers Care Detailer Name Role Phone Krystian Parker MD Primary Care Provider Allergies No known active allergies Medications fluticasone propionate (FLONASE) 50 mcg/actuation nasal spray Administer 2 sprays into each nostril 1 (one) time each day. 3 Active ibuprofen (ADVIL,MOTRIN) 600 mg tablet 4 Active polyethylene glycol (PEG) 17 gram/dose oral powder Take 17 g by mouth 1 (one) time each day. Active senna-docusate (PERICOLACE) 8.6-50 mg per tablet Take 1 tablet by mouth 1 (one) time each day. 180 each 1 5 Active lactulose (CHRONULAC) solution Take 10 mL (6.6667 g total) by mouth 1 (one) time each day if needed (constipation). 300 mL 5 5 Active hydrocortisone (ANUSOL-HC) 2.5 % rectal cream Insert into the rectum 4 (four) times a day if needed for hemorrhoids (rectal discomfort). Apply to affected areas 30 g 3 5 04/11/20 26 Active gabapentin (NEURONTIN) 100 mg capsule Take 1 capsule (100 mg total) by mouth 2 (two) times a day. 60 each 3 5 Active acetaminophen (Tylenol 8 Hour) 650 mg 8 hr tablet Take 1 tablet (650 mg total) by mouth every 8 (eight) hours if needed for mild pain. Do not crush, chew, or split. 90 tablet 3 5 Active cyclobenzaprine (FLEXERIL) 10 mg tablet Take 1 tablet (10 mg total) by mouth at bedtime as needed for muscle spasms. 30 tablet 3 5 Active Active Problems Problem Noted Date Diagnosed Date Cervical spondylosis 07/29/2023 Overview (09/01/2024): Last Assessment & Plan: Ms. Vickers continues to suffer with neck pain, interscapular [...] whenever time is available. Assessment & Plan (08/23/2025 3:33 PM EDT): I discussed the x-rays in detail with Ms. Vickers and her family noting that the M6 device is in great position with no evidence of osteolysis. She has maintenance of the normal lordosis with no instability in any level. In particular, the C6-7 disc remains tall while there is some loss of height at C7-T1. She is describing some left C7 distribution pain along the left scapula and in the left hand though without radiation in between. She has been inconsistent with taking her gabapentin and felt worse after the last 2 physical therapy visits. We discussed that the goal of PT was to diminish her pain level is much as possible but, primarily, to help her to be functional in her daily routine. If she is able to do her normal daily activities, then she does not have to go back to physical therapy. She is unclear as to whether or not the gabapentin is helping her so, she will be diligent about taking it for at least the next few weeks and, if it clearly helps to reduce her overall pain then she should continue taking it. Otherwise, she may wean off of it altogether. Assessment & Plan (02/07/2025 3:53 PM EDT): Ms. Vickers is about 6 months status post C5-6 [...] External hemorrhoids 01/04/2006 Overview (09/01/2024): IMO update Back pain Overview (08/23/2025): DX:Back pain Assessment & Plan (08/23/2025 3:37 PM EDT): Ms. Vickers feels achy across the upper lumbar region and sometimes into her hips. There were no worrisome findings on exam with no point tenderness, negative straight leg raise and negative compression test. She is fine to continue with deep tissue massage at home. We will try to track down the results of her previous EMG. Encounters Date Type Department Care Team Description 08/24/2025 Telephone [facility] [address] [phone] Yas Hernandez MD 08/23/2025 2:45 PM EDT Office Visit [facility] [address] [phone] Yas Hernandez MD Cervical spondylosis (Primary Dx); Chronic bilateral low back pain without sciatica 08/22/2025 3:01 PM EDT - 08/22/2025 11:59 PM EDT Hospital Encounter [facility] Xray [address] [place] [phone] Cervical spondylosis Discharge Disposition: Home or Self Care 08/13/2025 2:30 PM EDT Treatment Outpatient Rehabilitation - [address] [phone] Adela Longo, LPN CMA Chronic bilateral low back pain without sciatica (Primary Dx); Cervical spondylosis 08/03/2025 12:30 PM EDT Treatment Outpatient Rehabilitation - [address] [phone] Adela Longo, LPN CMA Chronic bilateral low back pain without sciatica (Primary Dx); Cervical spondylosis 07/23/2025 12:30 PM EDT Treatment Outpatient [address] [phone] Yoan Vernon, PT Chronic bilateral low back pain without sciatica (Primary Dx); Cervical spondylosis 07/18/2025 2:30 PM EDT Treatment Outpatient [address] [phone] Yoan Vernon, PT Chronic bilateral low back pain without sciatica (Primary Dx); Cervical spondylosis 07/16/2025 1:30 PM EDT Treatment Outpatient [address] [phone] Yoan Vernon, PT Chronic bilateral low back pain without sciatica (Primary Dx); Cervical spondylosis 07/11/2025 12:30 PM EDT Treatment Outpatient [address] [phone] Kaylee Cedillo H, LPN CMA Chronic bilateral low back pain without sciatica (Primary Dx); Cervical spondylosis 07/04/2025 9:00 AM EDT Treatment Outpatient [address] [phone] Adela Longo, LPN CMA Chronic bilateral low back pain without sciatica (Primary Dx); Cervical spondylosis 07/02/2025 1:30 PM EDT Treatment Outpatient [address] [phone] Kaylee Cedillo H, LPN CMA Chronic bilateral low back pain without sciatica (Primary Dx); Cervical spondylosis 06/22/2025 3:00 PM EDT Evaluation [address] [phone] Yoan Vernon, PT Chronic bilateral low back pain without sciatica; Cervical spondylosis 06/22/2025 Plan of Care Documentation Outpatient [address] [phone] 06/13/2025 9:30 AM EDT Office Visit Adult Medicine [address] [phone] Sommer Eduardo PA Onychomycosis (Primary Dx); Ganglion cyst from Last 3 Months Immunizations Immunization Administration Dates Next Due Influenza Quadrivalent, 0.5m [...] 0.5 30.7 Started: 11/29/1994 Smokeless Tobacco: Never Tobacco Cessation:Ready to Q uit: Not Asked Alcohol Use Standard Drinks/Week Comments No 0 [...] Sign Reading Time Taken Comments Blood Pressure 139/89 06/13/2025 9:12 AM EDT Pulse 75 06/13/2025 9:12 AM EDT Temperature 36.7 C (98 F) 06/13/2025 9:12 AM EDT Respiratory Rate 16 06/13/2025 9:12 AM EDT Oxygen Saturation - - Inhaled Oxygen Concentration - - Weight 63.5 kg (140 lb) 06/13/2025 9:12 AM EDT Height 167.6 cm (5' 6 ) 06/13/2025 9:12 AM EDT Body Mass Index 22.6 06/13/2025 9:12 AM EDT Plan of Treatment Health Maintenance Due Date Last Done Comments Colorectal Cancer Screening: Colonoscopy 1976 Hepatitis B Vaccines (1 of 3 - 19+ 3-dose series) 1995 Pneumococcal Vaccine: Pediatrics (0 to 5 Years) and At-Risk Patients (6 to 49 Years) (1 of 2 - PCV) 1995 Cervical Cancer Screening: HPV 1997 Hepatitis C Screening 11/07/2022 Social Influencers of Health Screening 11/07/2022 DTaP,Tdap,and Td Vaccines (4 - Td or Tdap) 03/29/2024 03/29/2014, 12/27/2003, 12/27/2003 Breast Cancer Screening 09/22/2024 09/22/20 22, 09/20/2021 Depression Screening 11/29/2024 07/17/2024 COVID-19 Vaccine ( - 2024-2 6 season) 2025 12/01/2021, 04/22/2021, 03/25/2021 Influenza Vaccine (#1) 2025 10/09/2023 Cholesterol Screening (Lipid Panel) 10/30/2029 10/30/2024, 03/21/2019 RSV Immunization Adult Patients (1 - 1-dose 75+ series) 2051 HIV Screening Completed 01/23/2009 HIB Vaccines Aged [...] Routine 08/22/2025 3:08 PM EDT Cervical spondylosis LIPID PANEL WITH REFLEX [...] is again seen to be limited. Code 70694 -------- FINAL REPORT -------- Dictated By: Austin Amaya Dictated Date: 08/23/2025 07:46 ET Assigned Physician: Austin Amaya Reviewed and Electronically Signed By: Austin Amaya Signed Date: 08/23/2025 07:48 ET Workstation ID: [id number] Transcribed By: Self Edit Transcribed Date: 08/23/2025 [...] flexion is again seen to belimited. Code 15665 -------- FINAL REPORT -------- Dictated By: Austin Amaya Dictated Date: 08/23/2025 07:46 ET Assigned Physician: Austin Amaya Reviewed and Electronically Signed By: Austin Amaya Signed Date: 08/23/2025 07:48 ET Workstation ID: [id number] Transcribed By: Self Edit Transcribed Date: 08/23/2025 07:46 ET us Yas Hernandez MD IMG XR PROCEDURES Final Result * (ABNORMAL) Lipid panel with reflex to direct LDL (10/30/2024 2:39 PM EST) Cholesterol 192 0 - 200 mg/dL LAB CHEMISTRY METHOD 10/30/2024 4:52 PM [facility] Triglycerides 102 0 - 150 mg/dL LAB CHEMISTRY METHOD 10/30/2024 4:52 PM [facility] HDL 55 >=40 mg/dL LAB CHEMISTRY METHOD 10/30/2024 4:52 PM [facility] LDL Calculated 117(H) 0 - 100 mg/dL LAB CHEMISTRY METHOD 10/30/2024 4:52 PM [facility] VLDL Cholesterol Manuel 20.4 mg/dL LAB CHEMISTRY METHOD 10/30/2024 4:52 PM [facility] Non HDL Chol. (LDL+VLDL) 137 <145 mg/dL LAB CHEMISTRY METHOD 10/30/2024 4:52 PM [facility] Chol/HDL Ratio 3.5 0.0 - 4.4 LAB CHEMISTRY METHOD 10/30/2024 4:52 PM [facility] Blood Venous blood specimen / Unknown Venipuncture / Unknown 10/30/2024 2:39 PM EST 10/30/2024 2:39 PM EST Sommer MUELLER LAB BLOOD ORDERABLES Fin al Result [facility] ([facility]) [facility] [address] [place] [address], * Depression Screening (07/17/2024) Depression Screening abstracted Historical Provider HEALTH MAINTENANCE Final Result * [...] cancer risk category Moderate (15% - 20%) Alicia MUELLER IMG XR PROCEDURES Final Re sult * Hm HIV Screening (01/23/2009) HIV Screening abstracted Historical Provider HEALTH MAINTENANCE Final Result from Last 3 Months or Most Recently Relevant to Health Maintenance Insurance [facility] [place] [place] [address] Care Teams Detailer Relationship Specialty Start Date End Date Krystian Parker MD [address] [place] [address] PCP - General Internal Medicine 04/01/22
--- OUTSIDE RECORDS SUMMARY | 2025-08-28 11:09 | XMS_ITS | Clinical Summary ---
Author Organization [facility] Address [address] [place] [address] [place] [phone] Phone Care Team Providers Care Greige Goods Inspector Name Role Phone Krystian Parker MD Primary Care Provider Allergies No known active allergies Medications diclofenac sodium (VOLTAREN) 1 % Gel Apply topically 2 (two) times a day as needed. 3 Active albuterol 90 mcg/actuation inhaler Inhale 2 puffs into the lungs. 2 Active acetaminophen (TYLENOL) 325 mg tablet Take 2 tablets (650 mg total) by mouth every 4 (four) hours as needed. 4 Active Additional Information Patient not taking.Reported on 04/13/2024 methylPREDNISol one (MEDROL DOSEPACK) 4 mg tablet follow package directions 21 tablet 4 Active Additional Information Patient not taking.Reported on 04/13/2024 Social History Tobacco Use Types Packs/Day Years Used Date Smoking Tobacco: Former Cigarettes 0.5 33.5 0 03/30/1990 - 10/13/2023 Smokeless Tobacco: Never Tobacco Cessation:Counseling Given: Not Answered Alcohol Use Standard Drinks/Week Comments Not Currently 0 (1 standard drink = 0.6 oz pur e alcohol) rarely Education Answer Date Recorded Are you interested in more education? Not on ashish e 10/27/2023 Are you concerned about learning? Not on file 10/27/2023 No 10/27/2023 No 10/27/2023 Digital Access Answer Date Recorded No 10/27/2023 No 10/27/2023 Reliable internet access at home? Not on file 10/27/2023 Device with a working camera? Not on file Intimate Partner Violence Answer Date R ecorded Are you denied basic needs s uch as food, clothing, or medical care? No 12/14/2023 In the past 12 months have y ou been in a relationship with a person who hurts, threatens, or tries to control you? No 12/14/2023 Are you denied basic needs s uch as food, clothing, or medical care? No 12/14/2023 In the past 12 months have y ou been in a relationship with a person who hurts, threatens, or tries to control you? No 12/14/2023 Comments No Sex and Gender Information Value Date Recorded Sex Assigned at Not on file Legal Sex Female 1:10 PM EST Gender Identity Not on file Sexual Orientation Not on file Last Filed Vital Signs Vital Sign Reading Time Taken Comments Blood Pressure 155/82 12/14/2023 3:46 PM EST Pulse 54 12/14/2023 3:15 PM EST Temperature 36.3 C (97.3 F) 12/14/2023 3:28 PM EST Respiratory Rate 16 12/14/2023 3:46 PM EST Oxygen Saturation 97% 12/14/2023 3:46 PM EST Inhaled Oxygen Concentration - - Weight 68 kg (150 lb) 12/14/2023 1:09 PM EST Height 167.6 cm (5' 6 ) 12/14/2023 1:09 PM EST Body Mass Index 24.21 12/14/2023 1:09 PM EST Plan of Treatment Health Maintenance Due Date Last Done Comments DEPRESSION SCREENING 1988 HEPATITIS C SCREENING 1994 HIV ONE-TIME SCREENING (18-6 5 YEARS) 1994 PAP SMEAR 1997 MAMMOGRAM 2016 COLOGUARD 2021 COLONOSCOPY 2021 COLORECTAL CANCER SCREENING 2021 FIT TEST 2021 FOBT 2021 SIGMOIDOSCOPY 2021 VIRTUAL COLONOSCOPY 2021 Adult Td,Tdap Booster 03/29/2024 03/29/2014 , 12/27/2003 INFLUENZA VACCINE (#1) 2025 10/09/2023 COVID-19 VACCINE (2024-2 6 season) 2025 12/01/2021, 04/22/2021, 03/25/2021 SMOKING Hx and SMOKELESS TOBACCO SCREENING 01/12/2026 01/12/2025 LIPID PANEL 10/30/2029 10/30/2024 HEPATITIS A VACCINES Aged Out No long er eligible based on patient's age to complete this topic HIB VACCINES Aged Out No longer eligi ble based on patient's age to complete this topic MENINGOCOCCAL VACCINES (ACWY) Aged Out No longer eligible based on patient's age to complete this topic MENINGOCOCCAL VACCINES (B) Aged Out N o longer eligible based on patient's age to complete this topic PNEUMOCOCCAL VACCINES (0-49 years) Aged Out No longer eligible b ased on patient's age to complete this topic Medical Devices Not on file Insurance [employer] [facility] [employer] Advance Directives For more information, please contact: [phone] (9AM - 5PM [facility], Wednesday-Wednesday) Documents on File Type Date Recorded Patient Editorial Manager Expl anation Healthcare Proxy 12/17/2023 11:28 AM Care Teams Greige Goods Inspector Relationship Specialty Start Date End Date Krystian Parker MD PCP - General Internal Medicine 10/27/23 Additional Source Comments The information contained in this document represents components of the legal health record. It is not the complete legal health record.[facility]
--- OUTSIDE RECORDS SUMMARY | 2025-08-28 11:09 | XMS_ITS ---
Author Name [facility] Organization Unknown Care Team Organization Name Specialty Phone Email Start Date End Da te [facility] Krystian Parker Primary Care 02/03/202306/29 [facility] [place] [facility] 10/06/2022 07/17/2024
--- OUTSIDE RECORDS SUMMARY | 2025-08-28 11:09 | XMS_ITS | Encounter Summary ---
Author Organization [facility] Address [address] [place] [address] [place] [phone] Phone Care Team Providers Care Motor Scooter Mechanic Name Role Phone Krystian Parker MD Primary Care Provider Encounter Details Date Type Department Care Team ([facility] st Contact Info) Description 11/19/2023 Procedure Pass [facility] - [facility] [address] [place] [address] Social History Tobacco Use Types Packs/Day Years Used Date Smoking Tobacco: Former Cigarettes Q uit: 10/13/2023 Smokeless Tobacco: Never Alcohol Use Standard Drinks/Week Comments Not Currently 0 (1 standard drink = 0.6 oz pur e alcohol) Education Answer Date Recorded Are you interested in more education? Not on ashish e 10/27/2023 Are you concerned about learning? Not on file 10/27/2023 No 10/27/2023 No 10/27/2023 Digital Access Answer Date Recorded No 10/27/2023 No 10/27/2023 Reliable internet access at home? Not on file 10/27/2023 Device with a working camera? Not on file Comments Unknown Sex and Gender Information Value Date Recorded Sex Assigned at Not on file Legal Sex Female 1:10 PM EST Gender Identity Not on file Sexual Orientation Not on file documented as of this encounter Plan of Treatment Not on file documented as of this encounter Visit Diagnoses Not on filedocumented in this encounter Care Teams Motor Scooter Mechanic Relationship Specialty Start Date End Date Krystian Parker MD PCP - General Internal Medicine 10/27/23 documented as of this encounter Additional Source Comments The information contained in this document represents components of the legal health record. It is not the complete legal health record.[facility]
--- OUTSIDE RECORDS SUMMARY | 2025-08-28 11:09 | XMS_ITS | Encounter Summary ---
Author Organization [facility] Address [address] [place] [address] [place] [phone] Phone Care Team Providers Care Party Plan Salesperson Name Role Phone Krystian Parker MD Primary Care Provider Encounter Details Date Type Department Care Team (Late st Contact Info) Description 02/06/2025 Procedure Pass [facility] DEPT [address] [place] [phone] Social History Tobacco Use Types Packs/Day Years Used Date Smoking Tobacco: Former Cigarettes 0.5 33.5 0 03/30/1990 - 10/13/2023 Smokeless Tobacco: Never Alcohol Use Standard [...] on filedocumented in this encounter Care Teams Party Plan Salesperson Relationship Specialty Start Date End Date Krystian Parker MD PCP - General Internal Medicine 10/27/23 documented as of this encounter Additional Source Comments The information contained in this document represents components of the legal health record. It is not the complete legal health record.[facility]
--- OUTSIDE RECORDS SUMMARY | 2025-08-28 11:09 | XMS_ITS | Encounter Summary ---
Author Organization [facility] Address [address] [place] [address] [place] [address] Phone Care Team Providers Care Steam Power Plant Operator Name Role Phone Krystian Parker MD Primary Care Provider Encounter Details Date Type Department Care Team (Late st Contact Info) Description 12/14/2023 Procedure Pass [facility] PERIOP DEPT [address] [place] [phone] Social History Tobacco Use Types Packs/Day Years [...] on filedocumented in this encounter Care Teams Steam Power Plant Operator Relationship Specialty Start Date End Date Krystian Parker MD PCP - General Internal Medicine 10/27/23 documented as of this encounter Additional Source Comments The information contained in this document represents components of the legal health record. It is not the complete legal health record.[facility]
== END 2025-08-28 11:22 | disposition home or self-care (01) ==
LOC: HO.HGI 10:05
PROVIDERS: PCP Internal Medicine; Visit Provider Nurse Practitioner
DX: M47.812 Spondylosis without myelopathy or radiculopathy, cervical region (principal); M54.50 Low back pain, unspecified; G89.29 Other chronic pain; K59.04 Chronic idiopathic constipation; M25.559 Pain in unspecified hip; K62.5 Hemorrhage of anus and rectum
CPT/HCPCS: 99203

== ENCOUNTER → 2025-08-28 10:04 | Outpatient (BNVA) | payer OTHER, SELFPAY | PROVIDERS: PCP Internal Medicine; Visit Provider Nurse Practitioner | DX: M47.812 Spondylosis without myelopathy or radiculopathy, cervical region (principal); M54.50 Low back pain, unspecified; G89.29 Other chronic pain; K59.04 Chronic idiopathic constipation; K62.5 Hemorrhage of anus and rectum; M25.559 Pain in unspecified hip | CPT/HCPCS: 99202 ==

== ENCOUNTER 2025-08-29 15:14 | Outpatient (REF) | payer OTHER, SELFPAY ==
--- NOTE | ~2025-08-29 | XR_ITS ---
EXAMINATION: XR BILATERAL HIPS WITH AP PELVIS CLINICAL INFORMATION: M25.559 - Pain in unspecified hip COMPARISON: None available. TECHNIQUE: AP and frog-leg lateral views of each hip and an AP view of the pelvis. FINDINGS: Pelvic x-ray demonstrates symmetrical unremarkable SI joints. Pubic symphysis joint is unremarkable. Right hip: There is minimal narrowing of the superior lateral hip joint space. There is bony prominence involving the anterior femoral head neck junction. There is osteophyte involving the medial femoral head. Left hip: There is mild narrowing of the superior lateral hip joint space. There is a small marginal ossified involving acetabular roof and along the femoral head margin. There is mild bony convexity of the anterior femoral head neck junction. XR/XR hip BI w PEL1V IMPRESSION: Right hip: Mild osteoarthritis. Bony exostosis involving anterior femoral head neck junction could result in cam type femoral acetabular impingement. Right hip: Mild osteoarthritis. Bony exostosis involving anterior femoral head neck junction could result in cam type femoral acetabular impingement. Electronically signed by: Fausto Barkley MD 08/29/2025 05:30 PM EDT
--- NOTE | ~2025-08-29 | XR_ITS ---
EXAMINATION: XR LUMBOSACRAL SPINE CLINICAL INFORMATION: M25.559 - Pain in unspecified hip COMPARISON: None available. TECHNIQUE: Three views of the lumbosacral spine. FINDINGS: There is mild convex left curvature of the lumbar spine. There are 5 nonrib-bearing lumbar segments. There is mild narrowing of T12-L1 disc space with anterior osteophytes. XR/XR lumbar spine 2-3V IMPRESSION: T12-L1 demonstrates mild degenerative disc disease. Electronically signed by: Fausto Barkley MD 08/29/2025 05:31 PM EDT
--- NOTE | ~2025-08-29 | XR_ITS ---
EXAMINATION: XR SACROILIAC JOINTS CLINICAL INFORMATION: M25.559 - Pain in unspecified hip COMPARISON: None available. TECHNIQUE: 3 views of the sacroiliac joints FINDINGS: SI joints are symmetrical. There are minimal marginal osteophyte involving inferior SI joints. There is also mild sclerosis of the inferior right greater than left SI joints. XR/XR sacroiliac joint min 3V IMPRESSION: Mild degenerative changes of bilateral SI joints. Electronically signed by: Fausto Barkley MD 08/29/2025 05:31 PM EDT RP
[2025-08-29 15:26] LABS: MANUAL DIFF FLAG NO
[2025-08-29 16:02] LABS: Hematocrit 37.0 % (37.0-47.0); Hemoglobin 12.9 g/dl (12.0-16.0); Imm Gran Abs Auto 0.02 X10*3/uL (0.00-0.03); Imm Gran Pct Auto 0.3 % (0.0-0.4); Lymphocytes Absolute Auto 2.0 X10*3/uL (1.2-4.9); Mean Corpuscular HGB Conc 34.9 g/dl (31.0-35.0); Mean Corpuscular Hemoglobin 32.1 pg (27.0-33.0); Mean Corpuscular Volume 92.0 fL (80.0-98.0); NRBC Abs Auto 0.000 X10*3/uL (0.0-0.012); NRBC Pct Auto 0.0 /100WBC (0.0-0.2); Platelet Count 212 X10*3/uL (160-400); Red Blood Count 4.02 X10*6/uL (4.20-5.50); White Blood Count 6.3 X10*3/uL (4.8-10.8)
--- OUTSIDE RECORDS SUMMARY | 2025-08-29 16:15 | XMS_ITS | Clinical Summary ---
Author Organization [facility] [address] [place] [address] [place] [phone] Phone Care Team Providers Care [place] Program Coordinator Name Role Phone Krystian Parker MD Primary Care Provider [phone] Allergies No known active allergies Medications fluticasone [...] Type Department Care Team Description 08/24/[address] [facility] [address] [phone] Yas Hernandez MD 08/23/2025 2:45 PM EDT Office Visit [facility] [address] [phone] Yas Hernandez MD Cervical spondylosis (Primary Dx); Chronic bilateral low back pain without sciatica 08/22/2025 3:01 PM EDT - 08/22/2025 11:59 PM EDT Hospital Encounter [facility] Xray [address] [place] [phone] Cervical spondylosis Discharge Disposition: Home or Self Care 08/13/2025 2:30 PM EDT Treatment Outpatient Rehabilitation - [address] [phone] Adela Longo, OIL SCOUT Chronic bilateral low back pain without sciatica (Primary Dx); Cervical spondylosis 08/03/2025 12:30 PM EDT Treatment Outpatient Rehabilitation - [address] [phone] Adela Longo, OIL SCOUT Chronic bilateral low back pain without sciatica (Primary Dx); Cervical spondylosis 07/23/2025 12:30 PM EDT Treatment Outpatient [address] [phone] Yoan Vernon, PT Chronic bilateral low back pain without sciatica (Primary Dx); Cervical spondylosis 07/18/2025 2:30 PM EDT Treatment Outpatient [address] [phone] Yoan Vernon, PT Chronic bilateral low back pain without sciatica (Primary Dx); Cervical spondylosis 07/16/2025 1:30 PM EDT Treatment Outpatient [address] [phone] Yoan Vernon, PT Chronic bilateral low back pain without sciatica (Primary Dx); Cervical spondylosis 07/11/2025 12:30 PM EDT Treatment Outpatient [address] [phone] Kaylee Cedillo H, OIL SCOUT Chronic bilateral low back pain without sciatica (Primary Dx); Cervical spondylosis 07/04/2025 9:00 AM EDT Treatment Outpatient [address] [phone] Adela Longo, OIL SCOUT Chronic bilateral low back pain without sciatica (Primary Dx); Cervical spondylosis 07/02/2025 1:30 PM EDT Treatment Outpatient [address] [phone] Kaylee Cedillo H, OIL SCOUT Chronic bilateral low back pain without sciatica (Primary Dx); Cervical spondylosis 06/22/2025 3:00 PM EDT Evaluation [address] [phone] Yoan Vernon, PT Chronic bilateral low back pain without sciatica; Cervical spondylosis 06/22/2025 Plan of Care Documentation Outpatient [address] [phone] 06/13/2025 9:30 AM EDT Office Visit Adult Medicine [address] [phone] Sommer Eduardo PA Onychomycosis (Primary Dx); Ganglion [...] is again seen to be limited. Code 12544 -------- FINAL REPORT -------- Dictated By: Austin Amaya Dictated Date: 08/23/2025 07:46 ET Assigned Physician: Austin Amaya Reviewed and Electronically Signed By: Austin Amaya Signed Date: 08/23/2025 07:48 ET Workstation ID: [id number] Transcribed By: Self Edit Transcribed Date: 08/23/2025 [...] flexion is again seen to belimited. Code 02880 -------- FINAL REPORT -------- Dictated By: Austin Amaya Dictated Date: 08/23/2025 07:46 ET Assigned Physician: Austin Amaya Reviewed and Electronically Signed By: Austin Amaya Signed Date: 08/23/2025 07:48 ET Workstation ID: [id number] Transcribed By: Self Edit Transcribed Date: 08/23/2025 07:46 ET us Yas Hernandez MD IMG XR PROCEDURES Final Result * (ABNORMAL) Lipid panel with reflex to direct LDL (10/30/2024 2:39 PM EST) Cholesterol 192 0 - 200 mg/dL LAB CHEMISTRY METHOD 10/30/2024 4:[address] [facility] Triglycerides 102 0 - 150 mg/dL LAB CHEMISTRY METHOD 10/30/2024 4:[address] [facility] HDL 55 >=40 mg/dL LAB CHEMISTRY METHOD 10/30/2024 4:[address] [facility] LDL Calculated 117(H) 0 - 100 mg/dL LAB CHEMISTRY METHOD 10/30/2024 4:[address] [facility] VLDL Cholesterol Manuel 20.4 mg/dL LAB CHEMISTRY METHOD 10/30/2024 4:[address] [facility] Non HDL Chol. (LDL+VLDL) 137 <145 mg/dL LAB CHEMISTRY METHOD 10/30/2024 4:[address] [facility] Chol/HDL Ratio 3.5 0.0 - 4.4 LAB CHEMISTRY METHOD 10/30/2024 4:[address] [facility] Blood Venous blood specimen / Unknown Venipuncture / Unknown 10/30/2024 2:39 PM EST 10/30/2024 2:39 PM EST Sommer MUELLER LAB BLOOD ORDERABLES Fin al Result [facility] ([facility]) [facility] [address] [place] [address], * Depression Screening (07/17/2024) Depression Screening abstracted [...] Most Recently Relevant to Health Maintenance Insurance [facility] [place] [address] Care Teams Brownfield Program Coordinator Relationship Specialty Start Date End Date Krystian Parker MD [address] [place] [address] PCP - General Internal Medicine 04/01/22
--- OUTSIDE RECORDS SUMMARY | 2025-08-29 16:15 | XMS_ITS | Encounter Summary ---
Author Organization [facility] Address [address] [place] [address] Care Team Providers Care Decorating Consultant Name Role Phone Krystian Parker MD Primary Care Provider [phone] Reason for Referral * Neurology (Routine) - Pending Review Specialty Diagnoses / Procedures Referred By Contac t Referred To Contact Neurology Diagnoses Chronic bilateral low back pain without sciatica Procedures EMG Bisi Shelton MD [address] [place] [address] Phone: tel: fax: Referral ID Status Reason Start Date Expiration Date V isits Requested Visits Authorized [id number] Pending Review 08/24/2025 08/24/2026 1 1 Encounter Details Date Type Department Care Team (Late st Contact Info) Description 08/24/2025 Telephone Neurosurgery [facility] [address] [phone] Bisi Shelton MD [address] [place] [address] Social History Tobacco Use Types Packs/Day Years [...] able to obtain the EMG report from [facility] from 04/23/2011 which showed mild peripheral neuropathy [...] Primary documented in this encounter Care Teams Decorating Consultant Relationship Specialty Start Date End Date Krystian Parker MD [address] [place] [address] PCP - General Internal Medicine 04/01/22 documented as of this encounter
--- OUTSIDE RECORDS SUMMARY | 2025-08-29 16:15 | XMS_ITS | Encounter Summary ---
Author Organization [facility] Address [address] [place] [address] [place] [address] Phone Care Team Providers Care Barrel Handler Name Role Phone Krystian Parker MD Primary Care Provider Encounter Details Date Type Department Care Team (Late st Contact Info) Description 12/14/2023 Procedure Pass [facility] MAIN PERIOP DEPT [address] [place] [id number] Social History Tobacco Use Types Packs/Day Years [...] on filedocumented in this encounter Care Teams Barrel Handler Relationship Specialty Start Date End Date Krystian Parker MD PCP - General Internal Medicine 10/27/23 documented as of this encounter Additional Source Comments The information contained in this document represents components of the legal health record. It is not the complete legal health record.[facility]
--- OUTSIDE RECORDS SUMMARY | 2025-08-29 16:15 | XMS_ITS | Encounter Summary ---
Author Organization [facility] Address [address] [place] [address] [place] [address] Phone Care Team Providers Care Spooler Operator Automatic Name Role Phone Krystian Parker MD Primary Care Provider Encounter Details Date Type Department Care Team (Late st Contact Info) Description 02/06/2025 Procedure Pass [facility] MAIN PERIOP DEPT [address] [place] [address] Social History Tobacco Use Types Packs/Day Years [...] on filedocumented in this encounter Care Teams Spooler Operator Automatic Relationship Specialty Start Date End Date Krystian Parker MD PCP - General Internal Medicine 10/27/23 documented as of this encounter Additional Source Comments The information contained in this document represents components of the legal health record. It is not the complete legal health record.[facility]
--- OUTSIDE RECORDS SUMMARY | 2025-08-29 16:15 | XMS_ITS | Clinical Summary ---
Author Organization [facility] Address [address] [place] [address] [place] [address] Phone Care Team Providers Care Wick Tender Name Role Phone Krystian Parker MD Primary [...] topic Medical Devices Not on file Insurance [employer] ACO [facility] MER[employer] ALLANCE ACO [employer] Advance Directives For more information, please contact: [phone] (9AM - 5PM [facility], Wednesday-Wednesday) Documents on File Type Date Recorded Patient Renewable Energy Project Manager Expl anation Healthcare Proxy 12/17/2023 11:28 AM Care Teams Wick Tender Relationship Specialty Start Date End Date Krystian Parker MD PCP - General Internal Medicine 10/27/23 Additional Source Comments The information contained in this document represents components of the legal health record. It is not the complete legal health record.[facility]
--- OUTSIDE RECORDS SUMMARY | 2025-08-29 16:15 | XMS_ITS | Encounter Summary ---
Author Organization [facility] Address [address] [place] [address] [place] [address] Phone Care Team Providers Care Beauty Advisor Name Role Phone Krystian Parker MD Primary Care Provider Encounter Details Date Type Department Care Team (Late st Contact Info) Description 11/19/2023 Procedure Pass [facility] [address] [place] [address] Social History Tobacco Use Types Packs/Day Years [...] on filedocumented in this encounter Care Teams Beauty Advisor Relationship Specialty Start Date End Date Krystian Parker MD PCP - General Internal Medicine 10/27/23 documented as of this encounter Additional Source Comments The information contained in this document represents components of the legal health record. It is not the complete legal health record.[facility]
[2025-08-29 17:01] LABS: Ferritin 53 ng/mL (10-250)
== END 2025-08-29 15:15 | disposition home or self-care (01) ==
LOC: HO.XRAY 15:14
PROVIDERS: PCP Internal Medicine; Visit Provider Nurse Practitioner
DX: K59.04 Chronic idiopathic constipation (principal); K62.5 Hemorrhage of anus and rectum; M25.559 Pain in unspecified hip; M54.50 Low back pain, unspecified; G89.29 Other chronic pain
CPT/HCPCS: 36415; 72100; 72202; 73521; 82728; 84443; 85025

== ENCOUNTER → 2025-08-29 15:28 | Outpatient (BNV) | payer OTHER, SELFPAY | PROVIDERS: PCP Internal Medicine; Visit Provider Radiology Diagnostic Radiology | DX: M25.559 Pain in unspecified hip (principal); M54.50 Low back pain, unspecified; M16.0 Bilateral primary osteoarthritis of hip | CPT/HCPCS: 72100; 72202; 73521 ==

== ENCOUNTER 2025-10-17 07:55 | Outpatient (REF) | payer OTHER, SELFPAY ==
--- NOTE | ~2025-10-17 | FL_ITS ---
EXAMINATION: XR UPPER GI SERIES WITH SMALL BOWEL CLINICAL INFORMATION: Constipation COMPARISON: CT of the abdomen and pelvis most recent March 2025 TECHNIQUE: Patient was administered thin and thick barium and effervescent granules. FINDINGS: Disbursement Clerk film demonstrates constipation. No dilated loops of bowel. Evaluation of the esophagus is limited due to nausea. Esophageal motility is normal. No esophageal hernia or reflux. There is delayed emptying of contrast from the stomach. The stomach is otherwise normal appearing. No fold thickening, mass, ulcer or stricture. There is delayed small bowel transit. Oral contrast did not reach the large bowel at 4 hours and the exam was terminated at patient's request. Visualized small bowel mucosal pattern is normal. No bowel dilatation. FLUOROSCOPY TIME: 1 minute 56 seconds DOSE AREA PRODUCT: 42 uGy-m2 (microgray-meter squared) FL/FL upper GI w air w SBFT IMPRESSION: Delayed gastric emptying and delayed small bowel transit. Small bowel follow-through was carried out to 4 hours and contrast did not reach the colon. The exam was ended at the patient's request. Electronically signed by: Marianna Fuentes MD 10/17/2025 01:51 PM MAR[facility]
--- OUTSIDE RECORDS SUMMARY | 2025-10-17 15:27 | XMS_ITS | Encounter Summary ---
Author Organization [facility] Address [address] [place] [address] [place] [address] Phone Care Team Providers Care Conservation Scientist Name Role Phone Krystian Parker MD Primary Care Provider Encounter Details Date Type Department Care Team (Late st Contact Info) Description 12/14/2023 Procedure Pass [facility] MAIN PERIOP DEPT [address] [place] [address] Social History Tobacco Use Types Packs/Day Years [...] on filedocumented in this encounter Care Teams Conservation Scientist Relationship Specialty Start Date End Date Krystian Parker MD PCP - General Internal Medicine 10/27/23 documented as of this encounter Additional Source Comments The information contained in this document represents components of the legal health record. It is not the complete legal health record.[facility]
--- OUTSIDE RECORDS SUMMARY | 2025-10-17 15:27 | XMS_ITS | Encounter Summary ---
Author Organization [facility] Address [address] [place] [address] [place] [address] Phone Care Team Providers Care Data Coder Operator Name Role Phone Krystian Parker MD Primary Care Provider Encounter Details Date Type Department Care Team ([facility] st Contact Info) Description 11/19/2023 Procedure Pass [facility] [address] [place] [address] Social History Tobacco Use Types Packs/Day Years [...] on filedocumented in this encounter Care Teams Data Coder Operator Relationship Specialty Start Date End Date Krystian Parker MD PCP - General Internal Medicine 10/27/23 documented as of this encounter Additional Source Comments The information contained in this document represents components of the legal health record. It is not the complete legal health record.[facility]
--- OUTSIDE RECORDS SUMMARY | 2025-10-17 15:27 | XMS_ITS | Clinical Summary ---
Author Organization [facility] Address [address] [place] [address] [place] [address] Phone Care Team Providers Care Tip Puncher Name Role Phone Krystian Parker MD Primary [...] patient's age to complete this topic IPV VACCINES Aged Out No longer eligi ble [...] topic Medical Devices Not on file Insurance [employer] ACO [facility] [employer] ACO [employer] Advance Directives For more information, please contact: [phone] (9AM - 5PM [facility], Wednesday-Wednesday) Documents on File Type Date Recorded Patient Sales Project Administrator Expl anation Healthcare Proxy 12/17/2023 11:28 AM Care Teams Tip Puncher Relationship Specialty Start Date End Date Krystian Parker MD PCP - General Internal Medicine 10/27/23 Additional Source Comments The information contained in this document represents components of the legal health record. It is not the complete legal health record.[facility]
--- OUTSIDE RECORDS SUMMARY | 2025-10-17 15:27 | XMS_ITS | Clinical Summary ---
Author Organization [address] Address [address] [place] [phone] Phone Care Team Providers Care Track Superintendent Name Role Phone Krystian Parker MD Primary Care Provider Allergies No known active allergies Medications fluticasone propionate (FLONASE) 50 mcg/actuation nasal spray Administer 2 sprays into each nostril 1 (one) time each day. 07/15/20 23 Active ibuprofen (ADVIL,MOTRIN) 600 mg tablet 05/08/20 24 Active polyethylene glycol (PEG) 17 gram/dose oral powder Take 17 g by mouth 1 (one) time each day. Active senna-docusate (PERICOLACE) 8.6-50 mg per tablet Take 1 tablet by mouth 1 (one) time each day. 180 each 1 04/11/20 25 Active lactulose (CHRONULAC) solution Take 10 mL (6.6667 g total) by mouth 1 (one) time each day if needed (constipation). 300 mL 5 04/11/20 25 Active hydrocortisone (ANUSOL-HC) 2.5 % rectal cream Insert into the rectum 4 (four) times a day if needed for hemorrhoids (rectal discomfort). Apply to affected areas 30 g 3 04/11/20 25 026 Active acetaminophen (Tylenol 8 Hour) 650 mg 8 hr tablet Take 1 tablet (650 mg total) by mouth every 8 (eight) hours if needed for mild pain. Do not crush, chew, or split. 90 tablet 3 04/11/20 25 Active gabapentin (NEURONTIN) 100 mg capsule TAKE 1 CAPSULE BY MOUTH TWICE A DAY 60 capsule 2 09/19/20 25 Active cyclobenzaprin e (FLEXERIL) 10 mg tablet TAKE 1 TABLET BY MOUTH AT BEDTIME NEEDED FOR MUSCLE SPASMS 30 tablet 2 09/19/20 25 Active gabapentin (NEURONTIN) 100 mg capsule Take 1 capsule (100 mg total) by mouth 2 (two) times a day. 60 each 3 04/11/20 25 025 Discontinued cyclobenzaprin e (FLEXERIL) 10 mg tablet Take 1 tablet (10 mg total) by mouth at bedtime as needed for muscle spasms. 30 tablet 3 04/11/20 25 025 Discontinued Active Problems Problem Noted Date Diagnosed Date [...] Encounters Date Type Department Care Team Description 10/08/[address] [phone] Faith Baugh [place] 09/25/2025 Telephone Obstetrics and Gynecology - [address] [phone] Triny Ansari CNM 09/24/2025 Results Follow-Up General Surgery - [address] [place] [phone] Krystian Parker MD 09/20/2025 7:00 PM EDT - 09/20/2025 11:59 PM EDT Hospital Encounter Radiology Department - [address] [phone] Encounter for screening mammogram for malignant neoplasm of breast Discharge Disposition: Home or Self Care 08/24/[address] [phone] Yas Heranndez MD 08/23/2025 2:45 PM EDT Office Visit [address] [phone] Yas Hernandez MD Cervical spondylosis (Primary Dx); Chronic bilateral low back pain without sciatica 08/22/2025 3:01 PM EDT - 08/22/2025 11:59 PM EDT Hospital Encounter [facility] X[facility] [address] [place] [address] Cervical spondylosis Discharge Disposition: Home or Self Care 08/13/2025 2:30 PM EDT Treatment Outpatient Rehabilitation - [address] [phone] Adela Longo, SERVICE LEARNING COORDINATOR Chronic bilateral low back pain without sciatica (Primary Dx); Cervical spondylosis 08/03/2025 12:30 PM EDT Treatment Outpatient Rehabilitation - [address] [phone] Adela Longo, SERVICE LEARNING COORDINATOR Chronic bilateral low back pain without sciatica (Primary Dx); Cervical spondylosis 07/23/2025 12:30 PM EDT Treatment Outpatient [facility] - [address] [phone] Yoan Vernon, PT Chronic bilateral low back pain without sciatica (Primary Dx); Cervical spondylosis 07/18/2025 2:30 PM EDT Treatment Outpatient [facility] - [address] [phone] Yoan Vernon, PT Chronic bilateral low back pain without sciatica (Primary Dx); Cervical spondylosis from Last 3 Months Immunizations Immunization Administration [...] Known Problems Paternal Grandmother Breast cancer Sister 55 Other: down syndrome Son 1 had twi ns 2006 1 week after - living child with Downs No Known Problems Son 2 No Known Problems Son 3 No Known Problems Son 4 Colon cancer Neg Hx Ovarian cancer Neg Hx Relation Name Status Comments Brother Alive Father Maternal Grandfather Maternal Grandmother Mother Paternal Grandfather Paternal Grandmother Sister 55 Alive Son 1 Alive Son 2 Alive Son 3 Alive Son 4 Alive Social History Tobacco Use Types Packs/Day Years Used Date Smoking Tobacco: Some Days Cigarettes 0.5 30.9 Started: 11/29/1994 Smokeless Tobacco: Never Tobacco Cessation:Ready [...] disclose 2024 11:23 AM EDT Obstetrics History Para Term AB IAB SAB Ectopic Multiple Livin g Live Births 5 5 5 5 Date Outcome GA Total Labor Labor/2nd/3rd Weight Sex Type Anes PTL Mariaelena A1 A5 Name Clin Term Term Term Term Term Last Filed Vital Signs Vital Sign Reading [...] 06/13/2025 9:12 AM EDT Plan of Treatment Upcoming Encounters Date Type Department Care Team (Late st Contact Info) Description 10/19/2025 1:00 PM EST Office Visit Obstetrics and Gynecology - [address] [phone] Triny Ansari [address] 10/30/2025 2:00 PM EST Office Visit Adult Medicine [place] - [address] [phone] Krystian Parker MD [address] [place] [address] 03/29/2026 10:00 AM EDT Office Visit Obstetrics and Gynecology - [address] [phone] Reta Renner, [address] Health Maintenance Due Date Last Done Comments [...] Td or Tdap) 03/29/2024 03/29/2014, 12/27/2003, 12/27/2003 Depression Screening 11/29/2024 07/17/2024 COVID-19 Vaccine (4 - 2024-2 6 season) 2025 12/01/2021, 04/22/2021, 03/25/2021 Influenza Vaccine (#1) 2025 10/09/2023 Breast Cancer Screening 09/20/2027 09/20/20, 09/22/2022, 09/20/2021 Cholesterol Screening (Lipid Panel) 10/30/2029 10/30/2024, 03/21/2019 [...] Procedure Name Priority Date/Time Associated Diagnosis Comments MG MAMMO DIGITAL SCREENING W DAVID BILAT Routine 09/20/2025 7:19 PM EDT Encounter for screening mammogram for malignant neoplasm of breast EXTERNAL CLINICAL LAB 08/29/2025 EXTERNAL XRAY REPORT 08/29/2025 EXTERNAL XRAY REPORT 08/29/2025 EXTERNAL XRAY REPORT 08/29/2025 EXTERNAL XRAY REPORT 08/29/2025 EXTERNAL XRAY REPORT 08/29/2025 EXTERNAL XRAY REPORT 08/29/2025 XR CERVICAL SPINE 4-5 VIEWS Routine 08/22/2025 3:08 PM EDT Cervical spondylosis LIPID PANEL WITH REFLEX TO DIRECT LDL Routine 10/30/2024 2:39 PM EST Sialodochitis Cervical spondylosis Onychomycosis Screening cholesterol level Screening for diabetes mellitus HM DEPRESSION SCREENING Routine 07/17/2024 HM HIV SCREENING Routine 01/23/2009 from Last 3 Months or Most Recently Relevant to Health Maintenance Results * MG Mammo Digital Screening w David bilat (09/20/2025 7:19 PM EDT) Anatomical Region Laterality Modality Breast Bilateral Mammography 09/24/2025 1:04 PM EDT Impressions 09/24/2025 1:16 PM EDT 1. No mammographic evidence of malignancy 2. Scattered fibroglandular tissue BI-RADS CATEGORY: 2 - BENIGN RECOMMENDATION: Screening bilateral mammogram is recommended in 1 year. Mammo Location: [facility], [address] [place] [address], [address], . -------- FINAL REPORT -------- Dictated By: Doug Weldon Dictated Date: 09/24/2025 13:04 ET Assigned Physician: Doug Weldon Reviewed and Electronically Signed By: Doug Weldon Signed Date: 09/24/2025 13:16 ET Workstation ID: [id number] Transcribed By: Self Edit Transcribed Date: 09/24/2025 13:04 ET Narrative 09/24/2025 1:16 PM EDT A BILATERAL DIGITAL 3D SCREENING MAMMOGRAPHY HISTORY: Routine screening. Family history of breast cancer in sister. COMPARISON: Multiple priors dating back to 09/20/2021 Technique: Bilateral full field digital mammography (3D) was performed using standard CC and MLO projections CAD was used to evaluate this mammogram. FINDINGS: Right: No suspicious masses, groups of microcalcification or areas of architectural distortion identified. Stable typically benign parenchymal asymmetries. Left: No suspicious masses, groups of microcalcification or areas of architectural distortion identified. Stable typically benign parenchymal asymmetries. BREAST DENSITY: B - There are scattered areas of fibroglandular density. Procedure Note Doug Weldon MD - 09/24/2025 A BILATERAL DIGITAL 3D SCREENING MAMMOGRAPHY HISTORY: Routine screening. Family history of breast cancer in sister. COMPARISON: Multiple priors dating back to 09/20/2021 Technique: Bilateral full field digital mammography (3D) was performedusing standard CC and MLO projections CAD was used to evaluate this mammogram. FINDINGS: Right: No suspicious masses, groups of microcalcification or areas ofarchitectural distortion identified. Stable typically benign parenchymalasymmetries. Left: No suspicious masses, groups of microcalcification or areas ofarchitectural distortion identified. Stable typically benign parenchymalasymmetries. BREAST DENSITY: B - There are scattered areas of fibroglandular density. IMPRESSION: 1. No mammographic evidence of malignancy 2. Scattered fibroglandular tissue BI-RADS CATEGORY: 2 - BENIGN RECOMMENDATION: Screening bilateral mammogram is recommended in 1 year. Mammo Location: [facility], [address] [place] [address], [id number], . -------- FINAL REPORT -------- Dictated By: Doug Weldon Dictated Date: 09/24/2025 13:04 ET Assigned Physician: Doug Weldon Reviewed and Electronically Signed By: Doug Weldon Signed Date: 09/24/2025 13:16 ET Workstation ID: [id number] Transcribed By: Self Edit Transcribed Date: 09/24/2025 13:04 ET Krystian Parker MD IMG BI PROCEDURES Final Res ult * External Xray Report (08/29/2025) Only the most recent of6 resultswithin the time period is included. Anatomical Region Laterality Modality Radiographic Carlene ging us Provider [facility] XR PROCEDURES Final Result * External clinical lab (08/29/2025) Provider [facility] BLOOD ORDERABLES Fin al Result * XR Cervical Spine 4-5 Views (08/22/2025 [...] is again seen to be limited. Code 41345 -------- FINAL REPORT -------- Dictated By: Austin Amaya Dictated Date: 08/23/2025 07:46 ET Assigned Physician: Austin Amaya Reviewed and Electronically Signed By: Austin Amaya Signed Date: 08/23/2025 07:48 ET Workstation ID: [id number] Transcribed By: Self Edit Transcribed Date: 08/23/2025 [...] flexion is again seen to belimited. Code 45462 -------- FINAL REPORT -------- Dictated By: Austin Amaya Dictated Date: 08/23/2025 07:46 ET Assigned Physician: Austin Amaya Reviewed and Electronically Signed By: Austin Amaya Signed Date: 08/23/2025 07:48 ET Workstation ID: [id number] Transcribed By: Self Edit Transcribed Date: 08/23/2025 07:46 ET Yas Hernandez MD IMG XR PROCEDURES Final Result * (ABNORMAL) Lipid panel with reflex to direct LDL (10/30/2024 2:39 PM EST) Cholesterol 192 0 - 200 mg/dL LAB CHEMISTRY METHOD 10/30/2024 4:52 PM [facility] Triglycerides 102 0 - 150 mg/dL LAB CHEMISTRY METHOD 10/30/2024 4:52 PM [facility] HDL 55 >=40 mg/dL LAB CHEMISTRY METHOD 10/30/2024 4:52 PM [facility] LDL Calculated 117(H) 0 - 100 mg/dL LAB CHEMISTRY METHOD 10/30/2024 4:52 PM [facility] VLDL Cholesterol Manuel 20.4 mg/dL LAB CHEMISTRY METHOD 10/30/2024 4:52 PM EST [facility] Non HDL Chol. (LDL+VLDL) 137 <145 mg/dL LAB CHEMISTRY METHOD 10/30/2024 4:52 PM EST [facility] Chol/HDL Ratio 3.5 0.0 - 4.4 LAB CHEMISTRY METHOD 10/30/2024 4:52 PM EST [facility] Blood Venous blood specimen / Unknown Venipuncture / Unknown 10/30/2024 2:39 PM EST 10/30/2024 2:39 PM EST [facility] BLOOD ORDERABLES Fin al Result [facility] [address] [place] [address], * Depression Screening (07/17/2024) Depression Screening abstracted Historical Provider HEALTH MAINTENANCE Final Result * HIV Screening (01/23/2009) HIV Screening abstracted Historical Provider HEALTH MAINTENANCE Final Result from Last 3 Months or Most Recently Relevant to Health Maintenance Insurance [facility] [place] [phone] Care Teams Track Superintendent Relationship Specialty Start Date End Date Krystian Parker MD [address] [place] [address] PCP - General Internal Medicine 04/01/22
--- OUTSIDE RECORDS SUMMARY | 2025-10-17 15:27 | XMS_ITS | Encounter Summary ---
Author Organization [facility] Address [address] [place] [address] [place] [phone] Phone Care Team Providers Care Ortho/Prosthetic Aide Name Role Phone Krystian Parker MD Primary Care Provider Encounter Details Date Type Department Care Team (Late st Contact Info) Description 02/06/2025 Procedure Pass [facility] [address] [place] [address] Social History Tobacco Use Types Packs/Day Years [...] on filedocumented in this encounter Care Teams Ortho/Prosthetic Aide Relationship Specialty Start Date End Date Krystian Parker MD PCP - General Internal Medicine 10/27/23 documented as of this encounter Additional Source Comments The information contained in this document represents components of the legal health record. It is not the complete legal health record.[facility]
== END 2025-10-17 07:56 | disposition home or self-care (01) ==
LOC: HO.XRAY 07:55
PROVIDERS: PCP Internal Medicine; Visit Provider Nurse Practitioner
DX: G89.29 Other chronic pain (principal); M54.50 Low back pain, unspecified; M25.559 Pain in unspecified hip; K59.04 Chronic idiopathic constipation; K62.5 Hemorrhage of anus and rectum
CPT/HCPCS: 74246; 74248

== ENCOUNTER → 2025-10-17 07:57 | Outpatient (BNV) | payer OTHER, SELFPAY | PROVIDERS: PCP Internal Medicine; Visit Provider Radiology Diagnostic Radiology | DX: K59.00 Constipation, unspecified (principal) | CPT/HCPCS: 74246 ==

== ENCOUNTER → 2025-10-17 10:00 | Outpatient (BNV) | payer OTHER, SELFPAY | PROVIDERS: PCP Internal Medicine; Visit Provider Psychiatry & Neurology Neurology | DX: M54.50 Low back pain, unspecified (principal) | CPT/HCPCS: 95886; 95913 ==

== ENCOUNTER 2025-10-17 10:27 | Outpatient (REF) | payer OTHER, SELFPAY ==
--- NOTE | 2025-10-17 10:00 | EMG_ITS ---
Chief complaint:?Low back pain Reason for referral: M54.50 Low back pain, unspecified Referred by:?Yas Hernandez MD Procedure done: Bilateral lower extremities NCS/EMG Bilateral tibial and peroneal motor studies were performed with F responses and tibial H reflexes. Bilateral median lateral mixed plantars sensory studies were performed. Bilateral superficial peroneal and sural sensory studies were performed and paraspinals were tested with a needle. Findings: Motor studies were with a normal range. Sensory studies also did not reveal any significant abnormality. Needle examination was normal. Impression: This is an unremarkable study with no evidence of peripheral neuropathy or radiculopathy. Codin [id number] 2 extremities MTDD
== END 2025-10-17 10:28 | disposition home or self-care (01) ==
LOC: HO.NEURO 10:27
PROVIDERS: PCP Internal Medicine; Visit Provider Neurological Surgery
DX: M54.50 Low back pain, unspecified (principal)
CPT/HCPCS: 95886; 95913

== ENCOUNTER 2025-11-14 15:29 | Outpatient (AMB) | payer OTHER, SELFPAY ==
--- OUTSIDE RECORDS SUMMARY | 2024-07-28 04:30 | XMS_ITS | Continuity of Care Document ---
Author Organization [facility] Address [address] [place] [address] [address] [place] [address] Phone Care Team Providers Care Chief Optometry Service Name Role Phone Nithin ENGLAND, LIBERTY, Javi KIRK Unavailable U navailable Allergies, Adverse Reactions, Alerts Substance Reaction Status Criticality No Known Allergies Active No Inform ation Procedures Procedure Date Duplex Scan-extrem Veins; Uni/ CT & MA A Advance Directives Directive Yes / No Effective Date File Name No Information Encounters Encounter Description Practice Location Reason(s) For Visit Diagnoses Date Provider Encounter Disposition [place] [facility], [address] [place] [address] Dr [address]o [address], [id number], [place] tel:[phone] [facility] Encounter for follow-up examination after completed treatment for conditions other than malignant nePain in right leg 4 Nithin ENGLAND RVT, RPVI Robert. [address] [place] [address], [facility] [place], [id number], [place]. tel:[phone] [place] [facility], [address] [place] [address] Dr [address], [id number], [place] tel:[phone] [facility] Varicose veins of right lower extremity with other complication s 4 Nithin ENGLAND RVT, RPVI Robert. [address] [place] [address], [place] [address], [facility] [place] [id number], [place]. tel:[phone] [place] [facility], [address] [place] [address] Dr Cordero [address], [id number], [place] tel:[phone] [facility] [place] [facility] Varicose veins of right lower extremity with other complication s 4 Nithin ENGLAND RVT, YELENA Caldwell. [address] [place] [address], [place], [id number], [place]. tel:[phone] [facility], [address] [place] [address] Dr [address] [place], [id number], [place] tel:[phone] [facility] [place] [facility] No Information 4 Nithin ENGLAND RVT, YELENA Caldwell. [address] [place] [address], [place]ub [place], [id number], [place]. tel:[phone] [facility], [address] [place] [address] Dr [address] [place], [id number], [place] tel:[phone] [facility] [place] [facility] Localized edemaCramp and spasmRestles s legs syndromeVeno us insufficienc y (chronic) (peripheral) Pruritus, unspecified [address] Anish Stephens[address] [place] [address], [place], [id number], [place]. tel:[phone] [facility], [address] [place] [address] Dr [address] [place], [id number], [place] tel:[phone] [facility] [place] [facility] Varicose veins of bilateral lower extremities with other complication s 4 Nithin ENGLAND RVT, YELENA Caldwell. [address] [place] [address] [address], [place], [id number], [place]. tel:[phone] [facility], [address] [place] [address] Dr [address], [id number], [place] tel:[phone] [facility] [place] [facility] Varicose veins of bilateral lower extremities with other complication [place] in right lower legPain in left lower legPain in right legRestless legs syndromePrur itus, unspecifiedP ain in left legCramp and spasmLocaliz ed edema 4 Nithin ENGLAND RVT, YELENA Caldwell. [address] [facility], [address], [facility] [place] [place], [id number], [place]. tel:[phone] [facility], [address], [place], [id number], [place] tel:[phone] [facility] - [facility] Chronic venous hypertension (idiopathic) with other complication s of bilateral lower extremity 4 Nithin ENGLAND RVT, YELENA Caldwell. [address] [facility], [address], [place], [id number], [place]. tel:[phone] Family History Family Member Type Diagnosis Age At Onset No Information Payers Payer name Insurance type Identifiers Authorization(s) Com ments [facility] CI yaniv ID: [id number] Name: Coverage Status Eligibility Check on: [id number] nship to Subscriber: selfPayer Address: [facility] [address], [place], [address], [facility] Phone: [phone] Social History Type Description Quantity Date Captured Comments Sex Female Smoking Status No Information Current Gender Female (finding) Chief Complaint And Reason For Visit No Information Plan Of Treatment Date Type Action Status Goal Tobacco cessation counseling completed Goal Diet education completed Goal Tobacco cessation counseling completed Referral Ordered: Weight management: Referral to physician timeframe: 3 Months (related to Body mass index (BMI) 25.0-25.9, adult) ordered History Of Present Illness Encounter Date Complaint History Of Prese nt Illness No Information Functional Status Date Description Comments No Information Instructions Date Instruction Additional Infor chava Pre and post instruc tions reviewed and provided Related to Localized edema Compression stocking usage as conservative measure Related to Localized edema Diet education Related to Body mass index (BMI) 25.0-25.9, adult Giving Encouragement to exercise Related to Body mass index (BMI) 25.0-25.9, adult Lifestyle education Related to B michele mass index (BMI) 25.0-25.9, adult Patient education booklet given Related to Varicose veins of bilateral lower extremities with other complications Pre and post instruc tions reviewed and provided Related to Varicose veins of bilateral lower extremities with other complications Assessments Type Assessment Date No Information
--- OUTSIDE RECORDS SUMMARY | 2025-11-12 12:45 | XMS_ITS | Encounter Summary ---
Author Organization [facility] Address [address] [place] [address] Care Team Providers Care Oracle Adf Developer Name Role Phone Krystian Parker MD Primary Care Provider [phone] Reason for Visit * Imaging (Routine) - Pending Review Specialty Diagnoses / Procedures Referred By Contac t Referred To Contact Radiology Diagnoses PMB (postmenopausal bleeding) Procedures US Pelvis Non OB Complete w Transvaginal Tirny Ansari CNM [address] [place] [address] Phone: tel: fax: [address] Phone: tel: Referral ID Status Reason Start Date Expiration Date V isits Requested Visits Authorized [id number] Pending Review 10/19/2025 10/19/2026 1 1 Encounter Details Date Type Department Care Team ([facility] st Contact Info) Description 11/12/2025 12:45 PM EST Hospital Encounter Radiology Department - [address] [phone] Social History Tobacco Use Types Packs/Day Years Used Date Smoking Tobacco: Some Days Cigarettes 0.5 31 Started: 11/29/1994 Smokeless Tobacco: Never Alcohol Use [...] AM EDT documented as of this encounter Plan of Treatment Upcoming Encounters Date Type Department Care Team (Late st Contact Info) Description 03/29/2026 10:00 AM EDT Office Visit Obstetrics and Gynecology - [facility] [address] [place], [place] [phone] Reta Renner, [facility] [address] [place], [place] Scheduled Orders Name Type Priority Associated Diagnoses Orde r Schedule US Pelvis Non OB Complete w Transvaginal Imaging Routine PMB (postmenopausal bleeding) Expected: 10/19/2025, Expires: 12/19/2025 documented as of this encounter Visit Diagnoses Not on filedocumented in this encounter Care Teams Oracle Adf Developer Relationship Specialty Start Date End Date Krystian Parker MD [address] [place] [address] PCP - General Internal Medicine 04/01/22 documented as of this encounter
--- NOTE | 2025-11-14 15:38 | A.OFFVIS_ITS ---
Vital Signs 11/14/25 15:40 Height 5 ft 6 in Weight 144 lb BMI 23.2 BP 147/88 H Blood Pressure Location Lt brachial Position Sitting Pulse 64 Intake Visit Reasons: 3 weeks f/u (ns 09/13) Intake Note: Yasmin presents to in office follow up for upper GI series study results. CC: Patient c/o constipation and lower back pain. 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 Accompanied by: Self / Same As Patient Allergies No Known Allergies Allergy (Verified 11/14/25 15:51) HPI HPI 3 weeks f/u (ns 09/13): Details: Assessment & Plan (1) Cervical spondylosis: Code(s): M47.812 - Spondylosis without myelopathy or radiculopathy, cervical region Category: Medical (2) Chronic low back pain: Code(s): M54.50 - Low back pain, unspecified; G89.29 - Other chronic pain Category: Medical (3) Chronic idiopathic constipation: Code(s): K59.04 - Chronic idiopathic constipation Category: Medical (4) Hip pain: Code(s): M25.559 - Pain in unspecified hip Category: Medical (5) Rectal bleeding: Code(s): K62.5 - Hemorrhage of anus and rectum Category: Medical Plan - The patient is a 50-year-old female presenting with constipation and related complaints. - Her issue with constipation began a few years ago, historically tracing back to a post-surgical incident involving exploratory surgery and a hemorrhoidectomy. - Describes ongoing passage of small, hard stools with significant rectal pain and bleeding during defecation, continuously uncomfortable enough to affect her daily activities. - Various medications including Colace, senna, bisacodyl, MiraLax, and lactulose have only marginally alleviated symptoms; persistent hemorrhoids remain a challenge. - Current diet lacks adequate fiber, complicating bowel regularity despite various aoqv-dxm-eoekqct treatment efforts. - The patient previously underwent a colonoscopy at [facility], yielding no significant findings of polyps or malignancy. We will need to request the records for this. - Additional concerns include a history of back pain, unclear if related to current bowel complaints, but notably exacerbated with movements and postural changes. - The patient has nutritional dilemmas potentially contributing to her gastrointestinal concerns, characterized by minimal fruit and vegetable intake and erratic meal consumption patterns. This is mostly due to socioeconomic problems involving limited income and lack of supplemental support. She apparently make sure her son eats before she does. Her diet consisting majorly of grilled cheese sandwiches, cookies, and ice cream. Because we do not have access to her [facility] records, and her knowledge of past medical problems and procedures is somewhat limited I want to get a series of studies. We will want to start with a thyroid to make sure this is not impacting her constipation. I also think we should get a small-bowel follow- through study and a CT of the abdomen and pelvis to try to tease out constipation as a cause of her back pain versus musculoskeletal problems. Of note, she does have significant cervical degenerative disc disease with disc herniations that may require surgery in the near future. Due to her bleeding I want to get a CBC and make sure she is not anemic, although oral iron therapy would likely also complicate her constipation. I also think an x-ray of the lumbar sprain along with the sacroiliac joints in the hips would help clarify the source of her pain. I am going to start her on Linzess 145 micro g and we will titrate to affect her side effect and I am also going to order a fiber tablet hoping that her insurance will pay for this since her diet is lacking. Return office visit in 3 weeks Orders: Orders TSH reflex Free T4 Today K59.04 - Chronic idiopathic constipation XR hip BI w PEL1V Today G89.29 - Other chronic pain, M25.559 - Pain in unspecified hip, M54.50 - Low back pain, unspecified XR sacroiliac joint min 3V Today G89.29 - Other chronic pain, M25.559 - Pain in unspecified hip, M54.50 - Low back pain, unspecified XR lumbar spine 2-3V Today G89.29 - Other chronic pain, M25.559 - Pain in unspecified hip, M54.50 - Low back pain, unspecified FL upper GI small bowel Today G89.29 - Other chronic pain, M25.559 - Pain in unspecified hip, M54.50 - Low back pain, unspecified Complete Blood Count Auto Diff Today K62.5 - Hemorrhage of anus and rectum Ferritin Today K62.5 - Hemorrhage of anus and rectum Medications: New hydrocortisone 2.5% (Anusol-HC) 1 appl DE BID PRN 30 grams 0RF hemorrhoids linaclotide (Linzess) Take first thing in the morning with a full glass of water. 145 mcg PO QAM 30 caps 3RF K58.1 - Irritable bowel syndrome with constipation methylcellulose (laxative) (Fiber Laxative (methylcellulose)) 500 mg PO BID 60 tabs 6RF K59.04 - Chronic idiopathic constipation 8 LABS; Laboratory Tests 08/29/25 15:25 WBC 6.3 RBC 4.02 L Hgb 12.9 Hct 37.0 MCV 92.0 MCH 32.1 Plt Count 212 Ferritin 53 TSH 0.61 XR H IPS/si/LUMBAR SPINE 08/29/2025 FINDINGS: Pelvic x-ray demonstrates symmetrical unremarkable SI joints. Pubic symphysis joint is unremarkable. Right hip: There is minimal narrowing of the superior lateral hip joint space. There is bony prominence involving the anterior femoral head neck junction. There is osteophyte involving the medial femoral head. Left hip: There is mild narrowing of the superior lateral hip joint space. There is a small marginal ossified involving acetabular roof and along the femoral head margin. There is mild bony convexity of the anterior femoral head neck junction. XR/XR hip BI w PEL1V IMPRESSION: Right hip: Mild osteoarthritis. Bony exostosis involving anterior femoral head neck junction could result in cam type femoral acetabular impingement. Right hip: Mild osteoarthritis. Bony exostosis involving anterior femoral head neck junction could result in cam type femoral acetabular impingement. FINDINGS: There is mild convex left curvature of the lumbar spine. There are 5 nonrib-bearing lumbar segments. There is mild narrowing of T12-L1 disc space with anterior osteophytes. XR/XR lumbar spine 2-3V IMPRESSION: T12-L1 demonstrates mild degenerative disc disease. BARIUM SWALLOW 10/17/2025 ADDENDUM #1 Addendum: Patient returned for additional imaging later in the afternoon on 10/17/2025 and 6 an 8 hour imaging obtained with overhead images and spot fluoroscopy. There is still no contrast reaching the distal ileum or large bowel. Patient was instructed to return tomorrow after work for additional imaging and spot films. Patient returned on 10/18/2025 approximately 30 hours postinitiation of the exam. There is passage of oral contrast with contrast seen throughout the colon. No dilated bowel suggest obstruction. Unfortunately the terminal ileum is not opacified with oral contrast and still not assessed. FINDINGS: Monogram Maker film demonstrates constipation. No dilated loops of bowel. Evaluation of the esophagus is limited due to nausea. Esophageal motility is normal. No esophageal hernia or reflux. There is delayed emptying of contrast from the stomach. The stomach is otherwise normal appearing. No fold thickening, mass, ulcer or stricture. There is delayed small bowel transit. Oral contrast did not reach the large bowel at 4 hours and the exam was terminated at patient's request. Visualized small bowel mucosal pattern is normal. No bowel dilatation. FLUOROSCOPY TIME: 1 minute 56 seconds DOSE AREA PRODUCT: 42 uGy-m2 (microgray-meter squared) FL/FL upper GI w air w SBFT IMPRESSION: Delayed gastric emptying and delayed small bowel transit. Small bowel follow-through was carried out to 4 hours and contrast did not reach the colon. The exam was ended at the patient's request. TODAY'S VISIT ON LICENSE OF [facility] Medical History External hemorrhoids Carpal tunnel syndrome Surgical History H/O colonoscopy H/O hemorrhoidectomy Family History Mother Lung cancer Father Lung cancer Sister Breast cancer Social History Alcohol intake: never Tobacco use type: Cigarette Cigarette Packs Per Day: 0.5 Review of Systems ENT Reports Normal hearing present Neuro Reports Normal hearing present and Denies Abnormal speech present Physical Exam Vital Signs: Last Vital Signs Pulse 64 11/14/25 15:40 BP 147/88 H 11/14/25 15:40 BMI result Body Mass Index 23.2 Const General: cooperative, no acute distress, well developed and well groomed Nutritional Appearance: average body habitus and well nourished Orientation/consciousness: oriented to person, oriented to place and oriented to time Limitations: No language barrier HEENT Head: Yes normocephalic and Yes atraumatic Eyes General: appearance normal, both eyes and all related structures Pupils: Equal, round and reactive pupils present Neck Neck: Yes normal visual inspection and Yes no lymphadenopathy Thyroid: Thyroid normal Resp Effort & Inspection: normal respiratory effort and able to speak in complete sentences Auscultation: clear to auscultation bilaterally Cardio Rate: regular rate Rhythm: regular rhythm Heart sounds: Normal, physiologic split S2 sound present Peripheral pulses: radial pulses present and posterior tibial pulses present GI Inspection: No distended and No Abdominal panniculus present Palpation (GI): Soft to palpation, nontender, no guarding, not rigid and No hepatosplenomegaly present Percussion: Yes normal to percussion Auscultation: normal bowel sounds Rectal Exam - Female: deferred Skin General skin exam: no rashes or lesions noted, turgor normal, skin not dry, no jaundice, No spider nevi and no striae Rashes: no rashes Nails: normal Neuro General: oriented to person, oriented to place and oriented to time Cranial nerves: Yes Equal, round and reactive pupils present and Yes Normal hearing present Speech: No Abnormal speech present Extrem General: Yes normal to inspection, No clubbing, No cyanosis and No edema Psych Appearance: grossly normal and well kempt Mental Status: mental status grossly normal Speech and movement: Normal speech and movement present Affect: normal affect Attitude: cooperative Thought process: Normal thought process present and not confabulating Thought content: Normal thought content present Insight: Good insight present (Psych) Judgement: Good judgement present (Psych) Results Reviewed Results Reviewed: Laboratory Tests 08/29/25 15:25 WBC 6.3 RBC 4.02 L Hgb 12.9 Hct 37.0 MCV 92.0 MCH 32.1 Plt Count 212 Ferritin 53 TSH 0.61 XR H IPS/si/LUMBAR SPINE 08/29/2025 FINDINGS: Pelvic x-ray demonstrates symmetrical unremarkable SI joints. Pubic symphysis joint is unremarkable. Right hip: There is minimal narrowing of the superior lateral hip joint space. There is bony prominence involving the anterior femoral head neck junction. There is osteophyte involving the medial femoral head. Left hip: There is mild narrowing of the superior lateral hip joint space. There is a small marginal ossified involving acetabular roof and along the femoral head margin. There is mild bony convexity of the anterior femoral head neck junction. XR/XR hip BI w PEL1V IMPRESSION: Right hip: Mild osteoarthritis. Bony exostosis involving anterior femoral head neck junction could result in cam type femoral acetabular impingement. Right hip: Mild osteoarthritis. Bony exostosis involving anterior femoral head neck junction could result in cam type femoral acetabular impingement. FINDINGS: There is mild convex left curvature of the lumbar spine. There are 5 nonrib-bearing lumbar segments. There is mild narrowing of T12-L1 disc space with anterior osteophytes. XR/XR lumbar spine 2-3V IMPRESSION: T12-L1 demonstrates mild degenerative disc disease. BARIUM SWALLOW 10/17/2025 ADDENDUM #1 Addendum: Patient returned for additional imaging later in the afternoon on 10/17/2025 and 6 an 8 hour imaging obtained with overhead images and spot fluoroscopy. There is still no contrast reaching the distal ileum or large bowel. Patient was instructed to return tomorrow after work for additional imaging and spot films. Patient returned on 10/18/2025 approximately 30 hours postinitiation of the exam. There is passage of oral contrast with contrast seen throughout the colon. No dilated bowel suggest obstruction. Unfortunately the terminal ileum is not opacified with oral contrast and still not assessed. FINDINGS: Monogram Maker film demonstrates constipation. No dilated loops of bowel. Evaluation of the esophagus is limited due to nausea. Esophageal motility is normal. No esophageal hernia or reflux. There is delayed emptying of contrast from the stomach. The stomach is otherwise normal appearing. No fold thickening, mass, ulcer or stricture. There is delayed small bowel transit. Oral contrast did not reach the large bowel at 4 hours and the exam was terminated at patient's request. Visualized small bowel mucosal pattern is normal. No bowel dilatation. FLUOROSCOPY TIME: 1 minute 56 seconds DOSE AREA PRODUCT: 42 uGy-m2 (microgray-meter squared) FL/FL upper GI w air w SBFT IMPRESSION: Delayed gastric emptying and delayed small bowel transit. Small bowel follow-through was carried out to 4 hours and contrast did not reach the colon. The exam was ended at the patient's request. Assessment & Plan Assessment & Plan (1) Idiopathic gastroparesis: Code(s): K31.84 - Gastroparesis Category: Medical (2) Chronic idiopathic constipation: Code(s): K59.04 - Chronic idiopathic constipation Category: Medical Plan She had difficulty titrating the Linzess, when she took it daily she developed some fecal leakage and urgency but when she tried skipping a few days she would not move her bowels at all. This is quite well explained by motility issue that is starts with gastric emptying problems, but I suggest we go down to the 72 micro g Linzess and then layer in Reglan. Subjective Patient presents for follow-up of chronic constipation. She started linaclotide (Linzess) after the last visit and took it daily for 4?5 days, which resulted in severe diarrhea with nocturnal incontinence and uncontrolled stool loss. She then stopped, tried dosing every three days without relief, then every two days/every other day and is not having bowel movements. She reports that when she cannot move her bowels she develops marked nausea and has vomited. She also reports intermittent rectal bleeding attributed to hemorrhoids?none for 3?4 weeks until a small episode two days ago; previously had bleeding lasting about 12 days. She notes that after sitting too long her legs feel like they ?don?t want to go? until she stands and stretches, after which she can walk. Relevant Past Medical, Social, and Family History - Colonoscopy two years ago reportedly without polyps. History of hemorrhoids. Objective - Completed investigations and results - Small bowel follow-through: markedly delayed transit; essentially no movement of contrast noted, including lack of gastric emptying during the study. - Thyroid testing: appears normal per review. - Right hip X-ray: osteoarthritis with joint space narrowing and femoral head osteophyte. - Lumbar spine X-ray: degenerative changes/arthritis with lumbar scoliosis curv ing to the left. Assessment & Plan Severe gastrointestinal dysmotility with constipation (delayed gastric emptying and slow transit constipation): Imaging demonstrates profound motility delay, including absent gastric emptying during study. Linaclotide at the initial dose caused excessive diarrhea/incontinence; inadequate response with intermittent dosing. - Start metoclopramide 5 mg by mouth four times daily (breakfast, lunch, supper, and bedtime), taken at those times whether eating or not. - Prescribe lower-dose linaclotide and take once daily as tolerated to support bowel movements. - Adverse effect counseling provided for metoclopramide: instructed to stop immediately and call if tremor or marked restlessness/akathisia occur. - Follow up in approximately 8 weeks to assess response and tolerance. Hemorrhoids with intermittent rectal bleeding - Counseling provided that hemorrhoidal bleeding can be unpredictable. Recent colonoscopy (2 years ago) without polyps reported; current bleeding pattern consistent with hemorrhoids. Monitor symptoms; seek care for heavy or persistent bleeding. Right hip osteoarthritis - Imaging-confirmed OA with osteophyte; symptoms may progress over time. Symptom monitoring discussed. Lumbar spondylosis with lumbar scoliosis - Degenerative changes with left-curving lumbar scoliosis likely contributing to facet-related pain. Discussed conservative options including physical therapy and consideration of spinal injections if symptoms warrant. Medications: New metoclopramide HCl (Reglan) 5 mg PO QIDACHS 120 tabs 6RF K31.84 - Gastroparesis, K59.04 - Chronic idiopathic constipation linaclotide (Linzess) Take 1st thing in the morning with a full glass of water 72 mcg PO QAM 30 caps 6RF Discontinued linaclotide (Linzess) Take first thing in the morning with a full glass of water. Discontinued Reason: Doctor's Order 145 mcg PO QAM 30 caps 3RF K58.1 - Irritable bowel syndrome with constipation Coding Level of Care Code Est Pt Level 3 (83564) Diagnoses Idiopathic gastroparesis K31.84 Chronic idiopathic constipation K59.04
[2025-11-14 15:40] VITALS: BP 147/88; PULSE 64; BMI 23.2
--- OUTSIDE RECORDS SUMMARY | 2025-11-14 20:24 | XMS_ITS | Clinical Summary ---
Author Organization [address] Address [address] [place] [phone] Phone Care Team Providers Care Concession Stand Attendant Name Role Phone Krystian Parker MD Primary [...] 30 g 3 5 04/11/20 26 Active acetaminophen (Tylenol 8 Hour) 650 mg 8 hr tablet Take 1 tablet (650 mg total) by mouth every 8 (eight) hours if needed for mild pain. Do not crush, chew, or split. 90 tablet 3 5 Active gabapentin (NEURONTIN) 100 mg capsule TAKE 1 CAPSULE BY MOUTH TWICE A DAY 60 capsule 2 5 Active cyclobenzaprine (FLEXERIL) 10 mg tablet TAKE 1 TABLET BY MOUTH AT BEDTIME NEEDED FOR MUSCLE SPASMS 30 tablet 2 5 Active Linzess 145 mcg capsule TAKE 1 CAPSULE ORALLY EVERY MORNING TAKE FIRST THING IN THE MORNING WITH A FULL GLASS OF WATER. 5 Active Active Problems Problem Noted Date [...] Encounters Date Type Department Care Team Description 11/12/2025 12:45 PM EST Hospital Encounter Radiology Department - [address] [phone] 10/23/2025 Results Follow-Up Obstetrics and Gynecology - [address] [phone] Triny Ansari CNM 10/23/2025 Telephone Neurosurgery [address] [place] [address] Yas Hernandez MD 10/19/2025 1:00 PM EST Office Visit Obstetrics and Gynecology - [address] [phone] Triny Ansari CNM PMB (postmenopausal bleeding) (Primary Dx); Screening for cervical cancer 10/08/[address] [place] [phone] Faith [facility]CRUM, [place] 09/25/2025 Telephone Obstetrics and Gynecology - [address] [phone] Triny Ansari CNM 09/24/2025 Results Follow-Up General Surgery - [address] [place] [phone] Krystian Parker MD 09/20/2025 7:00 PM EDT - 09/20/2025 11:59 PM EDT Hospital Encounter Radiology Department - [address] [phone] Encounter for screening mammogram for malignant neoplasm of breast Discharge Disposition: Home or Self Care 08/24/2025 Telephone Neurosurgery [facility] [address] [facility] [address] [place] [address] Yas Hernandez MD 08/23/2025 2:45 PM EDT Office Visit [facility] 175 [facility] [address] [place] [address] Yas Hernandez MD Cervical spondylosis (Primary Dx); Chronic bilateral low back pain without sciatica 08/22/2025 3:01 PM EDT - 08/22/2025 11:59 PM EDT Hospital Encounter [facility] Xray [address] [place] [address] Cervical spondylosis Discharge Disposition: Home or Self Care from Last 3 Months Immunizations Immunization Administration [...] 0.5 31 Started: 11/29/1994 Smokeless Tobacco: Never Tobacco Cessation:Ready [...] SAB Ectopic Multiple Livin g Live Births 4 4 4 0 0 0 0 0 Date Outcome GA Total Labor Labor/2nd/3rd Weight Sex Type Anes PTL Mariaelena A1 A5 Name Clin Term Term Term Term Last Filed Vital Signs Vital Sign Reading Time Taken Comments Blood Pressure 143/83 10/19/2025 1:09 PM EST Pulse 72 10/19/2025 1:09 PM EST Temperature 36.7 C (98 F) 06/13/2025 9:12 AM EDT Respiratory Rate 14 10/19/2025 1:09 PM EST Oxygen Saturation - - Inhaled Oxygen Concentration - - Weight 65 kg (143 lb 3.2 oz) 10/19/2025 1:09 PM EST Height 167.6 cm (5' 6 ) 06/13/2025 9:12 AM EDT Body Mass Index 23.11 06/13/2025 9:12 AM EDT Plan of Treatment Upcoming Encounters Date Type Department Care Team (Late st Contact Info) Description 03/29/2026 10:00 AM EDT Office Visit Obstetrics and Gynecology [facility] [address] [place], [place] [phone] Reta Renner, CN [address] [place], [place] Health Maintenance Due Date Last Done Comments Colorectal Cancer Screening: Colonoscopy 1976 Hepatitis B Vaccines (1 of 3 - 19+ 3-dose series) 1995 Pneumococcal Vaccine: Pediatrics (0 to 5 Years) and At-Risk Patients (6 to 49 Years) (1 of 2 - PCV) 1995 Hepatitis C Screening 11/07/2022 Social Influencers of Health Screening 11/07/2022 DTaP,Tdap,and Td Vaccines (4 - Td or Tdap) 03/29/2024 03/29/2014, 12/27/2003, 12/27/2003 Depression Screening 11/29/2024 07/17/2024 COVID-19 Vaccine (4 - 2024-2 6 season) 2025 12/01/2021, 04/22/2021, 03/25/2021 Influenza Vaccine (#1) 2025 10/09/2023 Breast Cancer Screening 09/20/2027 09/20/20, 09/22/2022, 09/20/2021 Cholesterol Screening (Lipid Panel) 10/30/2029 10/30/2024, 03/21/2019 Cervical Cancer Screening: HPV 10/19/2030 10/19/2025 RSV Immunization Adult Patients (1 - 1-dose [...] Procedure Name Priority Date/Time Associated Diagnosis Comments CHLAMYDIA TRACHOMATIS AND NEISSERIA GONORRHOEAE BY TMA, THINPREP Routine 10/19/2025 1:27 PM EST Screening for cervical cancer PMB (postmenopausal bleeding) PAP SMEAR Routine 10/19/2025 1:27 PM EST Screening for cervical cancer PMB (postmenopausal bleeding) HPV WITH REFLEX GENOTYPE Routine 10/19/2025 1:27 PM EST Screening for cervical cancer PMB (postmenopausal bleeding) TRICHOMONAS VAGINALIS PCR Routine 10/19/2025 1:27 PM EST Screening for cervical cancer PMB (postmenopausal bleeding) EXTERNAL ENDOSCOPY REPORT 10/17/2025 EXTERNAL ENDOSCOPY REPORT 10/17/2025 EXTERNAL ENDOSCOPY REPORT 10/17/2025 EXTERNAL ENDOSCOPY REPORT 10/17/2025 MG MAMMO DIGITAL SCREENING W DAVID BILAT [...] for diabetes mellitus DEPRESSION SCREENING Routine 07/17/2024 HIV SCREENING Routine 01/23/2009 from Last 3 Months or Most Recently Relevant to Health Maintenance Results * Chlamydia trachomatis and neisseria gonorrhoeae by tma, thinprep (10/19/2025 1:27 PM EST) [facility] N. gonorrhoeae, RNA Probe Negative Negative LAB MICROBIOLOGY METHOD 10/22/2025 12:23 PM EST [facility] Chlamydia, RNA Probe Negative Negative LAB MICROBIOLOGY METHOD 10/22/2025 12:23 PM EST [facility] Brushing/Spatula Cervix uteri structure / Unknown 10/19/2025 1:27 PM EST 10/22/2025 6:33 AM EST us Triny Ansari CNM LAB CYTOLOGY ORDERABLES Final R esult [facility] [address] [place] [address], [place] [phone] * HPV with reflex genotype (10/19/2025 1:27 PM EST) [facility] HPV Negative Negative LAB MICROBIOLOGY METHOD 10/22/2025 2:56 PM EST [facility] Brushing/Spatula Cervix uteri structure / Unknown 10/19/2025 1:27 PM EST 10/22/2025 6:33 AM EST us Triny Ansari CNM LAB MOLECULAR DIAGNOSTICS ORDER REYNA Final Result Performing Organization Address City/[facility]/ZIP Co de Phone Number [facility] [address] [place] [address], [place] [phone] * Trichomonas vaginalis molecular study (10/19/2025 1:27 PM EST) Trichomonas vaginalis Negative Negative LAB MICROBIOLOGY METHOD 10/22/2025 12:28 PM [facility] Brushing/Spatula Cervix uteri structure / Unknown 10/19/2025 1:27 PM EST 10/22/2025 6:33 AM EST Triny Ansari [facility] BLOOD ORDERABLES Final Resu lt [facility] [address] [place] [address], * Pap smear (10/19/2025 1:27 PM EST) Interpretation Negative for intraepithelial lesion or malignancy 10/22/2025 4:44 PM [facility] at 1644 EST General Categorization Negative 10/22/2025 4:44 PM [facility] Specimen Adequacy Satisfactory for evaluation, endocervical/galvan sformation zone component present 10/22/2025 4:44 PM [facility] Pap Methodology Liquid Based Pap Test 10/22/2025 4:44 PM [facility] Disclaimer The Pap test is a screening test which carries an inherent false negative rate. These test results should be correlated with the patient's clinical findings and history. This Pap test was processed using an automated screening system. Technical cytopathology services provided by [facility], at [address] [place] [address] (CLIA # [id number]/Dalia Baron MD, Padder Cushion.) 10/22/2025 4:44 PM [facility] Console Pap Interpretation Reported 10/22/2025 4:44 PM [facility] Brushing/Spatula Cervix uteri structure / Unknown 10/19/2025 1:27 PM EST 10/19/2025 1:27 PM EST us Triny Ansari CN LAB CYTOLOGY ORDERABLES Final R esult [facility] [address] [place] [address], [place] [phone] * External Endoscopy (10/17/2025) Only the most recent of4 resultswithin the time period is included. Anatomical Region Laterality Modality Endoscopy us Provider [facility]~PROCEDURE ORDERABLES Final Result * MG Mammo Digital Screening w David bilat (09/20/2025 7:19 PM EDT) Anatomical Region Laterality Modality Breast Bilateral Mammography 09/24/2025 1:04 PM EDT Impressions 09/24/2025 1:16 PM EDT 1. No mammographic evidence of malignancy 2. Scattered fibroglandular tissue BI-RADS CATEGORY: 2 - BENIGN RECOMMENDATION: Screening bilateral mammogram is recommended in 1 year. Mammo Location: [facility], [address] [place] [address], [address], . -------- FINAL REPORT -------- Dictated By: Doug Weldon Dictated Date: 09/24/2025 13:04 ET Assigned Physician: Doug Weldon Reviewed and Electronically Signed By: Doug Weldon Signed Date: 09/24/2025 13:16 ET Workstation ID: [id number] Transcribed By: Self Edit Transcribed Date: 09/24/2025 [...] is recommended in 1 year. Mammo Location: [facility], [address] [place] [address], [address], . -------- FINAL REPORT -------- Dictated By: Doug Weldon Dictated Date: 09/24/2025 13:04 ET Assigned Physician: Doug Weldon Reviewed and Electronically Signed By: Doug Weldon Signed Date: 09/24/2025 13:16 ET Workstation ID: [id number] Transcribed By: Self Edit Transcribed Date: 09/24/2025 13:04 ET Krystian Parker MD IMG BI PROCEDURES Final Res ult * External Xray Report (08/29/2025) Only the most recent of6 resultswithin the time period is included. Anatomical Region Laterality Modality Radiographic Carlene ging Provider [facility] IMG XR PROCEDURES Final Result * External clinical lab (08/29/2025) us Provider [facility] LAB BLOOD ORDERABLES Fin al Result [...] is again seen to be limited. Code 14169 -------- FINAL REPORT -------- Dictated By: Austin Amaya Dictated Date: 08/23/2025 07:46 ET Assigned Physician: Austin Amaya Reviewed and Electronically Signed By: Austin Amaya Signed Date: 08/23/2025 07:48 ET Workstation ID: [id number] Transcribed By: Self Edit Transcribed Date: 08/23/2025 [...] flexion is again seen to belimited. Code 06475 -------- FINAL REPORT -------- Dictated By: Austin Amaya Dictated Date: 08/23/2025 07:46 ET Assigned Physician: Austin Amaya Reviewed and Electronically Signed By: Austin Amaya Signed Date: 08/23/2025 07:48 ET Workstation ID: [id number] Transcribed By: Self Edit Transcribed Date: 08/23/2025 07:46 ET us Yas Hernandez MD IMG XR PROCEDURES Final Result * (ABNORMAL) Lipid panel with reflex to direct LDL (10/30/2024 2:39 PM EST) Cholesterol 192 0 - 200 mg/dL LAB CHEMISTRY METHOD 10/30/2024 4:52 PM [facility] Triglycerides 102 0 - 150 mg/dL LAB CHEMISTRY METHOD 10/30/2024 4:52 PM [facility] HDL 55 >=40 mg/dL LAB CHEMISTRY METHOD 10/30/2024 4:52 PM [facility] LDL Calculated 117(H) 0 - 100 mg/dL LAB CHEMISTRY METHOD 10/30/2024 4:52 PM [facility] VLDL Cholesterol Manuel 20.4 mg/dL LAB CHEMISTRY METHOD 10/30/2024 4:52 PM [facility] Non HDL Chol. (LDL+VLDL) 137 <145 mg/dL LAB CHEMISTRY METHOD 10/30/2024 4:52 PM EST [facility] Chol/HDL Ratio 3.5 0.0 - 4.4 LAB CHEMISTRY METHOD 10/30/2024 4:52 PM EST [facility] Blood Venous blood specimen / Unknown Venipuncture / Unknown 10/30/2024 2:39 PM EST 10/30/2024 2:39 PM EST [facility] BLOOD ORDERABLES Fin al Result [facility] [address] [place] [address], * Depression Screening (07/17/2024) Depression Screening abstracted Historical Provider HEALTH MAINTENANCE Final Result * HIV Screening (01/23/2009) HIV Screening abstracted Historical Provider HEALTH MAINTENANCE Final Result from Last 3 Months or Most Recently Relevant to Health Maintenance Insurance [facility] [employer] Care Teams Concession Stand Attendant Relationship Specialty Start Date End Date Krystian Parker MD [address] [place] [address] PCP - General Internal Medicine 04/01/22
--- OUTSIDE RECORDS SUMMARY | 2025-11-14 20:24 | XMS_ITS | Encounter Summary ---
Author Organization [facility] Address [address] [place] [address] Care Team Providers Care Security Advisor Name Role Phone Krystian Parker MD Primary Care Provider [phone] Encounter Details Date Type Department Care Team ([facility] Contact Info) Description 10/23/2025 Results Follow-Up Obstetrics and Gynecology - [address] [phone] Triny Ansari CNM [address] [place] [address] Social History Tobacco Use Types Packs/Day Years [...] Encounters Date Type Department Care Team (Late Contact Info) Description 03/29/2026 10:00 AM EDT Office Visit Obstetrics and Gynecology - [address] [phone] Reta Renner, [address] documented as of this encounter Visit Diagnoses Not on filedocumented in this encounter Care Teams Security Advisor Relationship Specialty Start Date End Date Krystian Parker MD [address] [place] [address] PCP - General Internal Medicine 04/01/22 documented as of this encounter
--- OUTSIDE RECORDS SUMMARY | 2025-11-14 20:24 | XMS_ITS | Clinical Summary ---
Author Organization [facility] Address [address] [place] [address] [place] [address] Phone Care Team Providers Care Seasoner Name Role Phone Krystian Parker MD Primary [...] topic Medical Devices Not on file Insurance Career Element ACO Career Element ACO [employer] [facility] [employer] A[employer]CO [employer] A[employer] Advance Directives For more information, please contact: [phone] (9AM - 5PM [facility], Wednesday-Wednesday) Documents on File Type Date Recorded 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 It is not the complete legal health record.[facility]
--- OUTSIDE RECORDS SUMMARY | 2025-11-14 20:24 | XMS_ITS | Encounter Summary ---
Author Organization [facility] Address [address] [place] [address] [place] [address] Phone Care Team Providers Care Parcel Contractor Name Role Phone Krystian Parker MD Primary Care Provider Encounter Details Date Type Department Care Team (Late st Contact Info) Description 02/06/2025 Procedure Pass [facility] PERIOP DEPT [address] [place] [address] Social History Tobacco Use Types Packs/Day Years [...] on filedocumented in this encounter Care Teams Parcel Contractor Relationship Specialty Start Date End Date Krystian Parker MD PCP - General Internal Medicine 10/27/23 documented as of this encounter Additional Source Comments The information contained in this document represents components of the legal health record. It is not the complete legal health record.[facility]
--- OUTSIDE RECORDS SUMMARY | 2025-11-14 20:24 | XMS_ITS | Encounter Summary ---
Author Organization [facility] Address [address] [place] [address] [place] [address] Phone Care Team Providers Care Fertilizer Supervisor Name Role Phone Krystian Parker MD Primary Care Provider Encounter Details Date Type Department Care Team (Late st Contact Info) Description 12/14/2023 Procedure Pass [facility] MAIN PERIOP DEPT [address] [place] [address] Social History Tobacco Use Types Packs/Day Years [...] on filedocumented in this encounter Care Teams Fertilizer Supervisor Relationship Specialty Start Date End Date Krystian Parker MD PCP - General Internal Medicine 10/27/23 documented as of this encounter Additional Source Comments The information contained in this document represents components of the legal health record. It is not the complete legal health record.[facility]
--- OUTSIDE RECORDS SUMMARY | 2025-11-14 20:24 | XMS_ITS | Encounter Summary ---
Author Organization [facility] Address [address] [place] [address] Care Team Providers Care Goldbeater Name Role Phone Krystian Parker MD Primary Care Provider [phone] Encounter Details Date Type Department Care Team ([facility] st Contact Info) Description 10/23/2025 Telephone [facility] [address] [address] Yas Hernandez MD [address] [place] [address] Social History Tobacco Use Types Packs/Day Years [...] Progress Notes * Yas Hernandez MD - 11/13/2025 4:11 PM EST Ms. Becerra called in for her results since she cannot login to the portal and, unfortunately, didnot get the message from her son. I let her know that the EMG was a normal study and there is no evidence of nerve damage from her lower back to her legs. She continues to have lower back pain which is probably discogenic or facet mediated but, not involving nerve damage. She will follow-up with usif there is anything new. * Yas Hernandez MD - 10/23/2025 5:46 PM EST I spoke to the patient's son to let him know that I have the results of her recent lower extremity nerve test from [facility] 10/17/2025. She should call us in the office tomorrow to discuss the results(normal study). documented in this encounter Plan of Treatment Upcoming Encounters Date Type Department Care Team (Late st Contact Info) Description 03/29/2026 10:00 AM EDT Office Visit Obstetrics and Gynecology - [address] [phone] Reta Renner, [facility] [address] [place], [place] documented as of this encounter Visit Diagnoses Not on filedocumented in this encounter Care Teams Goldbeater Relationship Specialty Start Date End Date Krystian Parker MD [address] [place] [address] PCP - General Internal Medicine 04/01/22 documented as of this encounter
--- OUTSIDE RECORDS SUMMARY | 2025-11-14 20:24 | XMS_ITS | Encounter Summary ---
Author Organization [facility] Address [address] [place] [address] [place] [address] Phone Care Team Providers Care Clothing Manager Name Role Phone Krystian Parker MD Primary Care Provider Encounter Details Date Type Department Care Team ([facility] st Contact Info) Description 11/19/2023 Procedure Pass [facility] [address] [place] [address] Social History Tobacco Use Types Packs/Day Years [...] on filedocumented in this encounter Care Teams Clothing Manager Relationship Specialty Start Date End Date Krystian Parker MD PCP - General Internal Medicine 10/27/23 documented as of this encounter Additional Source Comments The information contained in this document represents components of the legal health record. It is not the complete legal health record.[facility]
== END 2025-11-14 16:21 | disposition home or self-care (01) ==
LOC: HO.HGI 15:29
PROVIDERS: PCP Internal Medicine; Visit Provider Nurse Practitioner
DX: K31.84 Gastroparesis (principal); K59.04 Chronic idiopathic constipation
CPT/HCPCS: 99213

== ENCOUNTER → 2025-11-14 15:29 | Outpatient (BNVA) | payer OTHER, SELFPAY | PROVIDERS: PCP Internal Medicine; Visit Provider Nurse Practitioner | DX: K31.84 Gastroparesis (principal); K59.04 Chronic idiopathic constipation; K58.1 Irritable bowel syndrome with constipation | CPT/HCPCS: 99212 ==